=== PATIENT | female | born 1990 | race Asian ===

== ENCOUNTER → 2018-03-10 | Outpatient (CLI) | payer OTHER ==
--- NOTE | 2018-03-10 15:03 | DIAGNOSTIC IMAGING REPORT ---
R ELBOW MIN 3 VIEWS ROUTINE CLINICAL HISTORY: RT ELBOW PAIN/FALL trauma. Pain. COMPARISON: None. DISCUSSION: The bones and joint spaces appear intact. There is no evidence of fracture, dislocation or bony disease. There is no evidence for soft tissue swelling. IMPRESSION: Negative study. The above report was generated using voice recognition software. It may contain grammatical, syntax or spelling errors. Electronically signed by: Geronimo Arias M.D. 03/10/2018 3:01 PM Dictated Date/Time: 03/10/2018 3:00 PM
== END | disposition home or self-care (01) ==
LOC: C.RAD1850 14:53
PROVIDERS: ATTEND Nurse Practitioner
DX: M25.521 Pain in right elbow (principal); W19.XXXA Unspecified fall, initial encounter

== ENCOUNTER 2022-08-27 14:31 | Inpatient (IN) ==
[2022-08-27 15:22] LABS: Basophils # (auto) 0.22 K/uL (0-0.2); Basophils % (auto) 1.4 %; Eosinophils # (auto) 0.06 K/uL (0-0.50); Eosinophils % (auto) 0.4 %; Hematocrit (blood only) 56.7 % (34.1-44.9); Hemoglobin 19.8 g/dl (12.0-16.0); Immature Granulocytes % (auto) 1.3 %; Lymphocytes # (auto) 3.04 K/uL (1.2-3.4); Lymphocytes % (auto) 19.9 %; Mean Corpuscular Hgb Conc 34.9 g/dL (32.0-36.0); Mean Corpuscular Volume 88.7 fL (80.0-100.0); Mean Platelet Volume 11.4 fL (9.4-12.3); Monocytes # (auto) 1.29 K/uL (0.24-0.82); Monocytes % (auto) 8.5 %; Neutrophils # (auto) 10.45 K/uL (1.4-6.5); Neutrophils % (auto) 68.5 %; Platelet Count 393 K/uL (130-400); RDW Coefficient of Variation 13.4 % (11.5-14.5); RDW Standard Deviation 42.8 fL (36.4-46.3); Red Blood Count 6.39 M/uL (3.93-5.22); White Blood Count 15.26 K/ul (4.8-10.8)
[2022-08-27 15:54] LABS: Partial Thromboplastin Ratio 1.2; Partial Thromboplastin Time 32.9 Seconds (21.0-31.0); Prothrombin Time 10.6 Seconds (9.0-12.0)
[2022-08-27 16:15] LABS: Albumin Globulin Ratio 0.9 (0.9-2); Albumin Level 4.6 gm/dl (3.4-5.0); BUN Creatinine Ratio 12.8 (10-20); Bilirubin,Total 0.4 mg/dl (0.2-1.0); Calcium 9.4 mg/dl (8.5-10.1); Globulin 5.1 gm/dl (2.5-4.0); Magnesium 2.2 mg/dl (1.7-2.4); Potassium 4.2 mmol/L (3.5-5.1); Total Protein 9.7 gm/dl (6.0-8.3)
[2022-08-27] MEDS ORDERED: LORazepam 1 MG TAB SL STA (16:37)
[2022-08-27] MEDS ORDERED: SODIUM CHLORIDE 0.9% 1000ML 2,000 ML IV ONE (16:37)
[2022-08-27 17:46] LABS: Appearance Urine Cloudy (Clear); Bacteria Urine Automated Negative (Negative); Bilirubin Urine Negative (Negative); Blood Urine 3+ (Negative); Color Urine Yellow; Epithelial Cell Urine Auto >30 /lpf (0-5); Glucose Urine UA 3+ (Negative); Ketones Urine 4+ (Negative); Leukocyte Esterase Urine Negative (Negative); Nitrite Urine Negative (Negative); Protein Urine 3+ (Negative); Urobilinogen Urine Negative (Negative); WBC Urine Automated >30 /hpf (0-5)
[2022-08-27 17:50] LABS: Base Excess VBG -19.8 mEq/L; HCO3 VBG 10 mmol/L; Oxygen Saturation VBG < 60.0 %; PCO2 VBG 34 mmHg (38-50); PO2 VBG 32 mmHg; pH VBG 7.06 (7.36-7.41)
[2022-08-27] MEDS ORDERED: OPTIRAY 320 500ml IV ONE (17:54)
[2022-08-27 18:11] LABS: Acetaminophen < 3 ug/ml (10-30); Salicylate < 3.0 mg/dl (3.0-30)
--- NOTE | 2022-08-27 18:23 | CT Scan Report ---
CT angio chest PE protocol CT DOSE: 463.38 mGy.cm HISTORY: 31 years-old Female with ro PE. Acute shortness of breath TECHNIQUE: Multiple CTA images of the chest were obtained after the intravenous administration of 122 ml Optiray. Coronal and sagittal MIPS were obtained from the axial data set and were submitted for review. All measurements were obtained according to NASCET criteria. A dose lowering technique was u tilized adhering to the principles of ALARA. COMPARISON: Chest radiograph 09/19/2020 FINDINGS: CTA: There is adequate opacification of the pulmonary arteries to the level of the subsegmental branches w ithout convincing evidence of acute pulmonary embolism. Normal thoracic aorta.Heart size is normal. CT CHEST: No thyroid nodule identified. No lymphadenopathy identified. 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 No pneumothorax, pleural effusion or airspace consolidation. Likely benign 3 mm solid nodul e right lower lobe, image 87. Hepatic steatosis. No acute process of the imaged upper abdomen. 8 mm c ircumscribed soft tissue attenuating mass of the upper inner quadrant left breast. No acute fracture. IMPRESSION: 1. No acute intrathoracic abnormality. No pulmonary emboli. 2. 8 mm mass of the upper inner quadrant left breast, possibly a lymph node. Correlation with a nonem ergent follow-up breast ultrasound recommended. 3. Hepatic steatosis. ACT 112: Negative or not required by law. The above report was generated using voice recognition software. It may contain grammatical, syntax o r spelling errors. Electronically signed by: Armando Ramirez M.D. 08/27/2022 6:21 PM
[2022-08-27 18:37] LABS: Troponin I High Sensitivity 8.9 pg/ml (0-14)
[2022-08-27] MEDS ORDERED: FOMEPIZOLE IV STA (19:00)
[2022-08-27] MEDS ORDERED: FOMEPIZOLE IV ONE (19:30)
[2022-08-27] MEDS ORDERED: DEXTROSE 5% IV ONE (19:30)
--- NOTE | 2022-08-27 19:44 | History & Physical Report ---
Date of Service August 27, 2022 Assessment & Plan (1) Metabolic acidosis: Plan: - VBG with pH of 7.06, CO2 4, O2 32, bicarb 10, base excess -19.8. - ABG: pH 7.1, CO2 17.1, base -24, bicarb 5.4. - Sodium 129, corrects to 132 when accounting for glucose of 299. - Glucose 299, AG 23. - Serum osm 303, serum osmolality 279, osm gap 24.0. - Unknown etiology. Likely mixed--DKA and possible ingestion, adamantly denies ingestion. Taking ibuprofen often, 6-9 in a day when needed but is not every day and takes ~20 200-mg ibuprofen pills/week. - Given fomepizole in ED. - Will cover with IV Protonix given concern for ibuprofen overdose. - Creatinine is up from baseline of .6, is .94 today, GFR 82. - Lactate 1.5. - Salicylate, acetaminophen, ethyl all wnl. - UDS with ethyl glycol, methyl alcohol pending. - Urine osm pending. - For now, will treat as DKA wit insulin gtt, bicarb gtt, admit to ICU. (2) Leukocytosis: Plan: - WBC 15.26, RBS and Hgb also very elevated, suspect a degree of hemoco ncentration/reactive, she also has a history of leukocytosis. - No obvious evidence of infection at present. (3) Depression: Plan: - Hold Zoloft for now. - Increased depression, anxiety due to job on, admits to feeling withdrawn from friends, but adamantly denies any recent suicide attempts, ingestions of any alcohol or chemicals, drug use. - Would benefit from outpatient psych referral for ongoing management. (4) PCOS (polycystic ovarian syndrome): Plan: - On OCP. Plan - Admit to ICU. History of Present Illness Chief Complaint: shortness of breath, chest pain, palpitations x several days Primary Care Provider: JANESSA Loyola Vanda Howard is a 31-year-old female with past medical history significant for chronic back pain, depression, heartburn, obesity, and PCOS who is presenting today due to concerns over chest pain, palpitations, shortness of breath. 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 She has having a very hard time sleeping, noting that for the past 2 weeks she is sleeping for 4-5 hours a night which is mostly interrupted sleep and relying on naps throughout the day, typically gets a 3-hour nap and every day. She is also very short of breath with minor activities such as going up the stairs, down the stairs, or bending over to place her cat's food bowl on the ground, this is what prompted her to present to the ED today. She has bilateral frontal headaches which attributes to lack of sleeping, for which she takes ibuprofen for as needed, estimates she takes 6-9 pills in a day, but not every day, estimates 20 pills of ibuprofen in a week. These are 200 mg pills. She also complains of very dry mouth and has been using lozenges for help with this, and currently this is her biggest complaint as she just cannot get enough water and is peeing more despite still having a dry mouth. other than her Zoloft, vitamin D supplement, the control pill, she is not taking any other prescribed medications and denies any [id number] pills or supplements purchased online other than the ibuprofen and lozenges. Is not taking Tylenol, denies using any alcohol, drugs, or nicotine products. She eats 2 or 3 meals a day consisting of pasta, sticky rice, shrimp, [place]i sauce which she has delivered by her parents. Drinks 1 to 2 L of seltzer a day, as well as water. Has not drastically reduced her food or drink intake. She does not exercise regularly, and this is not new. Her sister, who is older than she is is a prediabetic, she reports she is very thin. Her mother side of the family is fairly healthy and any medical conditions they have, she states are "diet managed ". Father's side has a history of breast cancer, brain cancer, and PCOS. She has been asked about suicidal ideation multiple times by ED provider, major case detective, and myself and adamantly denies any ingestions or feelings of harming her self, however did report to case management she attempted to kill herself by hanging last year. She does note she has been very withdrawn from friends and not going to activities that she previously enjoyed very much. She denies wanting to hurt herself for now, but is just very very frustrated about her job situation and lack of sleep. On presentation to the ED, her heart rate has been elevated to the 120s, and is otherwise within normal limits, stable. Labs notable for pH 7.0 //10. Sodium 129, bicarb 8, anion gap 23, glucose 299, serum osmolality 303. Alk phos, protein, globulin mildly elevated. WBC of 15.26 with left shift, Hgb elevated at 19.8. Urine is concentrated with protein, glucose, ketones, blood, WBCs, RBCs, hyaline casts. Salicylate, serum level negative, ethyl alcohol <10. COVID-negative. PT, INR within normal limits, APTT slightly elevated 32.9. Chest CTA done shows an 8 mm mass of upper inner quadrant of left breast, possibly with. Fatty liver noted. No acute intrathoracic abnormality or pulmonary emboli. Allergies Allergy/AdvReac Type Severity Reaction Status Date / Time silver AdvReac Redness of Verified 08/27/22 18:18 Skin Home Medications Medication Instructions Recorded Confirmed Type sertraline 50 mg tablet 50 mg PO QAM 12/07/19 08/27/22 History drospirenone 3 mg-ethinyl 1 tab PO QAM 08/27/22 08/27/22 History estradiol 0.02 mg tablet (Vestura (28)) Past Med/Surg History Medical History (Updated 08/28/22 @ 17:24 by Almas Chavis MD) Chronic back pain Depression Heartburn History of abnormal cervical Pap smear Obesity PCOS (polycystic ovarian syndrome) Surgical History H/O eye surgery RIGHT > 1997 History of tooth extraction Family History Sister Pre-diabetes Social History Smoking Status: Never smoker Second Hand Exposure: No; Hx Alcohol Use: No Hx Substance Use: No Preferred Language: Swedish Communication Ability: Effective Visual Impairment: No Limitations [employer] Member Required: No Beliefs That Will Affect Care: None Current Living Situation: Alone Current Living Situation Comment: [facility] Other Information That Helps Us Care for You: No Feels Safe at Home: Yes Safety Concerns: Feels Safe At This Time Assistive Devices: None Review of Systems Review of Systems: Constitutional: No fever/chills, weakness, fatigue, myalgias, anorexia, night sweats Eyes: No diplopia, no worsening or blurred vision ENT: very dry mouth x 2 weeks; normal hearing, no trouble swallowing Respiratory: sob with very minor activity; no cough, sputum Cardiovascular: Chest pain and palpitations with minimal activity Abdomen: Nausea, no abdominal pain or vomiting, diarrhea or constipation : Increased urination; Denies dysuria, hematuria, urinary retention Musculoskeletal: No joint pain, calf pain, swelling Neurologic: No weakness, numbness/tingling, or balance problems Psychiatric: No anxiety or depression Skin: No rash or itch Physical Exam Physical Exam: General: awake, alert, no apparent distress Head: Normocephalic, atraumatic ENT: PERRL, EOMI, no pharyngeal exudate, mucous membranes moist Chest: Clear to auscultation, on room air, no adventitious breath sounds Cardiac: Tachycardic rate and rhythm, no murmur, no JVD, normal peripheral pulses, good capillary refill Abdominal: NABS x 4 quadrants, soft, nontender to palpation, no rebound, guarding or tenderness Extremities: Normal inspection, no peripheral edema or erythema, calfs nontender to palpation Psych: Normal mood and affect Neuro: AAO x 3, strength intact bilaterally and rated 5/5, no motor deficits, speech is clear, no peripheral sensory deficits Skin: no rash or erythema Results & Data Results & Data ([facility]) Vital Signs (Past 12 Hours) Vital Signs Temp Pulse Pulse Resp BP BP Pulse Ox 08/27/22 17:13 119 H 20 136/93 97 08/27/22 15:02 105 H 20 97 08/27/22 15:01 97 08/27/22 15:01 120 H 20 136/91 98 08/27/22 14:58 36.4 C L 130 H 18 144/98 H 95 O2 Del Method 08/27/22 17:13 Room Air 08/27/22 15:02 Room Air 08/27/22 15:01 Room Air 08/27/22 15:01 Room Air 08/27/22 14:58 Room Air Laboratory Results Abnormal lab results 08/27/22 08/27/22 08/27/22 Range/Units 15:10 15:10 15:10 WBC 15.26 H (4.8-10.8) K/ul RBC 6.39 H (3.93-5.22) M/uL Hgb 19.8 H (12.0-16.0) g/dl Hct 56.7 H (34.1-44.9) % Neut # (Auto) 10.45 H (1.4-6.5) K/uL [place] # (Auto) 1.29 H (0.24-0.82) K/uL Baso # (Auto) 0.22 H (0-0.2) K/uL Immature Gran # (Auto) 0.20 H (0.00-0.02) K/uL APTT 32.9 H (21.0-31.0) Seconds VBG pH (7.36-7.41) VBG pCO2 (38-50) mmHg Sodium 129 L (136-145) mmol/L Carbon Dioxide 8 L* (21-32) mmol/L Anion Gap 23 H (3-11) Glucose 299 H (70-99(Fasting)) mg/dl Osmolality (280-300) mOsm/kg Alkaline Phosphatase 115 H (34-104) U/L Total Protein 9.7 H (6.0-8.3) gm/dl Globulin 5.1 H (2.5-4.0) gm/dl Urine Appearance (Clear) Ur Specific [place] (1.000-1.030) Urine Protein (Negative) Urine Glucose (UA) (Negative) Urine Ketones (Negative) Urine Blood (Negative) Urine WBC (Auto) (0-5) /hpf Urine RBC (Auto) (0-4) /hpf U Hyaline Cast (Auto) (0-5) /lpf U Epithel Cells (Auto) (0-5) /lpf Salicylates (3.0-30) mg/dl Acetaminophen (10-30) ug/ml 08/27/22 08/27/22 08/27/22 Range/Units 17:08 17:08 17:08 WBC (4.8-10.8) K/ul RBC (3.93-5.22) M/uL Hgb (12.0-16.0) g/dl Hct (34.1-44.9) % Neut # (Auto) (1.4-6.5) K/uL [place] # (Auto) (0.24-0.82) K/uL Baso # (Auto) (0-0.2) K/uL Immature Gran # (Auto) (0.00-0.02) K/uL APTT (21.0-31.0) Seconds VBG pH 7.06 L (7.36-7.41) VBG pCO2 34 L (38-50) mmHg Sodium (136-145) mmol/L Carbon Dioxide (21-32) mmol/L Anion Gap (3-11) Glucose (70-99(Fasting)) mg/dl Osmolality 303 H (280-300) mOsm/kg Alkaline Phosphatase (34-104) U/L Total Protein (6.0-8.3) gm/dl Globulin (2.5-4.0) gm/dl Urine Appearance (Clear) Ur Specific [place] (1.000-1.030) Urine Protein (Negative) Urine Glucose (UA) (Negative) Urine Ketones (Negative) Urine Blood (Negative) Urine WBC (Auto) (0-5) /hpf Urine RBC (Auto) (0-4) /hpf U Hyaline Cast (Auto) (0-5) /lpf U Epithel Cells (Auto) (0-5) /lpf Salicylates < 3.0 L (3.0-30) mg/dl Acetaminophen < 3 L (10-30) ug/ml 08/27/22 Range/Units 17:24 WBC (4.8-10.8) K/ul RBC (3.93-5.22) M/uL Hgb (12.0-16.0) g/dl Hct (34.1-44.9) % Neut # (Auto) (1.4-6.5) K/uL [place] # (Auto) (0.24-0.82) K/uL Baso # (Auto) (0-0.2) K/uL Immature Gran # (Auto) (0.00-0.02) K/uL APTT (21.0-31.0) Seconds VBG pH (7.36-7.41) VBG pCO2 (38-50) mmHg Sodium (136-145) mmol/L Carbon Dioxide (21-32) mmol/L Anion Gap (3-11) Glucose (70-99(Fasting)) mg/dl Osmolality (280-300) mOsm/kg Alkaline Phosphatase (34-104) U/L Total Protein (6.0-8.3) gm/dl Globulin (2.5-4.0) gm/dl Urine Appearance Cloudy A (Clear) Ur Specific [place] 1.040 H (1.000-1.030) Urine Protein 3+ H (Negative) Urine Glucose (UA) 3+ H (Negative) Urine Ketones 4+ H (Negative) Urine Blood 3+ H (Negative) Urine WBC (Auto) >30 H (0-5) /hpf Urine RBC (Auto) 5-10 H (0-4) /hpf U Hyaline Cast (Auto) 10-30 H (0-5) /lpf U Epithel Cells (Auto) >30 H (0-5) /lpf Salicylates (3.0-30) mg/dl Acetaminophen (10-30) ug/ml Diagnostic Findings Chest CTA 08/27/22 16:38 CT angio chest PE protocol CT DOSE: 463.38 mGy.cm HISTORY: 31 years-old Female with ro PE. Acute shortness of breath TECHNIQUE: Multiple CTA images of the chest were obtained after the intravenous administration of 122 ml Optiray. Coronal and sagittal MIPS were obtained from the axial data set and were submitted for review. All measurements were obtained according to NASCET criteria. A dose lowering technique was utilized adhering to the principles of ALARA. COMPARISON: Chest radiograph 09/19/2020 FINDINGS: CTA: There is adequate opacification of the pulmonary arteries to the level of the subsegmental branches without convincing evidence of acute pulmonary embolism. Normal thoracic aorta.Heart size is normal. CT CHEST: No thyroid nodule identified. No lymphadenopathy identified. 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 No pneumothorax, pleural effusion or airspace consolidation. Likely benign 3 mm solid nodule right lower lobe, image 87. Hepatic steatosis. No acute process of the imaged upper abdomen. 8 mm circumscribed soft tissue attenuating mass of the upper inner quadrant left breast. No acute fracture. IMPRESSION: 1. No acute intrathoracic abnormality. No pulmonary emboli. 2. 8 mm mass of the upper inner quadrant left breast, possibly a lymph node. Correlation with a nonemergent follow-up breast ultrasound recommended. 3. Hepatic steatosis. ACT 112: Negative or not required by law. The above report was generated using voice recognition software. It may contain grammatical, syntax or spelling errors. Electronically signed by: Armando Ramirez M.D. 08/27/2022 6:21 PM ECG Additional Comments: Sinus tachycardia Possible Left atrial enlargement Right axis deviation Pulmonary disease pattern Abnormal ECG When compared with ECG of 19-DEC-2019 14:31, Vent. rate has increased BY 46 BPM QRS axis Shifted right. Code Status & VTE Plan Code Status Full Code. Supervising Physician Co-Signing Physician Notes Attending addendum: I have physically seen this patient, have supervised the medical residents activities, and agree with the H&P unless as otherwise noted. Assessment and Plan: Severe metabolic acidosis- ABG: pH 7.1, CO2 17.1, base -24, bicarb 5.4 Glucose 299 Anion gap 23 Serum osmolality 303 Urine osmolality 833 Osmolality 24.0 Treated for DKA with insulin drip and adjusted IV fluids as noted Fomepizole given in ED Salicylate, acetaminophen and ethyl alcohol all normal UDS with ethylene glycol and methyl alcohol pending Placed on bicarb drip Follow BMP and magnesium levels every 4 hours Admit to ICU Further orders and notations as noted PG Care Time/CCT Total # of Minutes Spent Total Time Spent with Patient: Total time spent is greater than 50% in coordination of care (as documented) at patient's floor/unit and/or counseling patient: Critical Care Time 45 minutes Coding Level of Care Code 54081 Initial Inpt Care Lvl 3 Diagnoses Metabolic acidosis E87.20 Leukocytosis D72.829 Depression F32.9 PCOS (polycystic ovarian syndrome) E28.2
[2022-08-27] MEDS ORDERED: LACTATED RINGER'S 1,000 ML IV SCH (20:30)
[2022-08-27] MEDS ORDERED: PANTOprazole 40 MG in SYRINGE 0 ML IV ONE (21:15)
[2022-08-27] MEDS ORDERED: LACTATED RINGER'S 1,000 ML IV ONE (21:27)
[2022-08-27] MEDS: SODIUM BICARBONATE 8.4% 150 MEQ in WATER, STERILE 1,000 ML IV SCH (22:18)
[2022-08-27 22:19] LABS: Amphetamines+Metham, Urine Neg (Neg); Barbiturates, Urine Neg (Neg); Benzodiazepine, Urine Neg (Neg); Cocaine, Urine Neg (Neg); MDMA (Ecstacy), Urine Neg (Neg); Methadone, Urine Neg (Neg); Opiate, Urine Neg (Neg); Phencyclidine, Urine Neg (Neg)
--- NOTE | 2022-08-27 23:05 | Emergency Department Note ---
History of Present Illness General Chief complaint: Shortness of Breath/Dyspnea Stated complaint: INSOMIA, HEART RACING, SOB, DRY MOUTH Time Seen by Provider: 08/27/22 16:04 History of Present Illness Provider complaint: Palpitations and shortness of breath Onset (ago): day(s) 1 Associated symptoms: + shortness of breath; no chest pain, no cough, no h eadaches or no nausea/vomiting 31-year-old female presents emergency department for palpitations and shortness of breath. Patient reports her symptoms began yesterday. She also [place]. Patient denies any current chest pain. Patient states she has been under a great amount of stress about her finances that she recently quit her job has not been able to find a new job yet. Patient reports no depression or suicidal ideation. Patient does report she is on oral contraceptives. She denies any abdominal pain. She denies any fevers. No melena hematochezia hematuria dysuria or vaginal bleeding. No chance of . Home Medications Medication Instructions Recorded Confirmed Type sertraline 50 mg tablet 50 mg PO QAM 12/07/19 08/27/22 History drospirenone 3 mg-ethinyl 1 tab PO QAM 08/27/22 08/27/22 History estradiol 0.02 mg tablet (Vestura (28)) Allergies Allergy/AdvReac Type Severity Reaction Status Date / Time silver AdvReac Redness of Verified 08/27/22 18:18 Skin Past Med/Surg History Medical History (Updated 08/27/22 @ 23:17 by Rowdy Rogers) Chronic back pain Depression Heartburn History of abnormal cervical Pap smear Obesity PCOS (polycystic ovarian syndrome) Surgical History H/O eye surgery RIGHT > 1997 History of tooth extraction Family History Sister Pre-diabetes Social History Smoking Status: Never smoker Second Hand Exposure: No; Hx Alcohol Use: No Hx Substance Use: No Preferred Language: [place] Communication Ability: Effective Visual Impairment: No Limitations Broadcasting Equipment Mechanic Required: No Beliefs That Will Affect Care: None Current Living Situation Comment: [facility] Feels Safe at Home: Yes Assistive Devices: Glasses Review of Systems A total of 10 systems reviewed and were otherwise negative Physical Exam Vital Signs Vital Signs - 24 hr 08/27/22 14:58 08/27/22 15:02 08/27/22 15:01 Temperature 36.4 C L Temperature Source Temporal Artery Scan Pulse Rate 130 H Pulse Rate [Apical] 120 H Pulse Rate from SpO2 Sensor Pulse Rhythm Pulse Rhythm [Apical] Regular Pulse Strength [Apical] Normal Respiratory Rate 18 20 Respiratory Effort / Characteristics Non-Labored Spontaneous Non-Labored Respiratory Depth Normal Respiratory Pattern Regular Regular Blood Pressure 144/98 H Blood Pressure [Right Arm] 136/91 Blood Pressure Mean 113 Blood Pressure Mean [Right Arm] 106 Blood Pressure Position Sitting Blood Pressure Position [Right Arm] Pulse Oximetry 95 98 Oxygen Delivery Method Room Air Room Air Sepsis Recent Fever Within 48 Hours No Sepsis New/Unexplained Change in Mental Status No Sepsis Action Taken by Nursing No Action Required 08/27/22 15:01 08/27/22 15:02 08/27/22 17:13 Temperature Temperature Source Pulse Rate 105 H Pulse Rate [Apical] 119 H Pulse Rate from SpO2 Sensor Pulse Rhythm Regular Pulse Rhythm [Apical] Regular Pulse Strength [Apical] Normal Respiratory Rate 20 20 Respiratory Effort / Characteristics Respiratory Depth Normal Respiratory Pattern Blood Pressure Blood Pressure [Right Arm] 136/93 Blood Pressure Mean Blood Pressure Mean [Right Arm] 107 Blood Pressure Position Blood Pressure Position [Right Arm] Lying Pulse Oximetry 97 97 97 Oxygen Delivery Method Room Air Room Air Room Air Sepsis Recent Fever Within 48 Hours Sepsis New/Unexplained Change in Mental Status Sepsis Action Taken by Nursing 08/27/22 17:17 08/27/22 17:30 08/27/22 17:30 Temperature Temperature Source Pulse Rate 118 H 113 H Pulse Rate [Apical] Pulse Rate from SpO2 Sensor 118 H 115 H Pulse Rhythm Pulse Rhythm [Apical] Pulse Strength [Apical] Respiratory Rate 15 19 Respiratory Effort / Characteristics Respiratory Depth Respiratory Pattern Blood Pressure 131/97 Blood Pressure [Right Arm] Blood Pressure Mean 108 Blood Pressure Mean [Right Arm] Blood Pressure Position Blood Pressure Position [Right Arm] Pulse Oximetry 97 98 Oxygen Delivery Method Sepsis Recent Fever Within 48 Hours Sepsis New/Unexplained Change in Mental Status Sepsis Action Taken by Nursing 08/27/22 18:04 08/27/22 18:04 08/27/22 18:30 Temperature Temperature Source Pulse Rate Pulse Rate [Apical] Pulse Rate from SpO2 Sensor 120 H Pulse Rhythm Pulse Rhythm [Apical] Pulse Strength [Apical] Respiratory Rate Respiratory Effort / Characteristics Respiratory Depth Respiratory Pattern Blood Pressure 144/87 H 132/92 Blood Pressure [Right Arm] Blood Pressure Mean 106 105 Blood Pressure Mean [Right Arm] Blood Pressure Position Blood Pressure Position [Right Arm] Pulse Oximetry 98 Oxygen Delivery Method Sepsis Recent Fever Within 48 Hours Sepsis New/Unexplained Change in Mental Status Sepsis Action Taken by Nursing 08/27/22 18:30 08/27/22 19:00 08/27/22 19:00 Temperature Temperature Source Pulse Rate Pulse Rate [Apical] Pulse Rate from SpO2 Sensor 121 H 119 H Pulse Rhythm Pulse Rhythm [Apical] Pulse Strength [Apical] Respiratory Rate Respiratory Effort / Characteristics Respiratory Depth Respiratory Pattern Blood Pressure 132/97 Blood Pressure [Right Arm] Blood Pressure Mean 108 Blood Pressure Mean [Right Arm] Blood Pressure Position Blood Pressure Position [Right Arm] Pulse Oximetry 96 97 Oxygen Delivery Method Sepsis Recent Fever Within 48 Hours Sepsis New/Unexplained Change in Mental Status Sepsis Action Taken by Nursing 08/27/22 19:30 08/27/22 19:30 08/27/22 20:00 Temperature Temperature Source Pulse Rate Pulse Rate [Apical] Pulse Rate from SpO2 Sensor 115 H 122 H Pulse Rhythm Pulse Rhythm [Apical] Pulse Strength [Apical] Respiratory Rate Respiratory Effort / Characteristics Respiratory Depth Respiratory Pattern Blood Pressure 150/90 H Blood Pressure [Right Arm] Blood Pressure Mean 110 Blood Pressure Mean [Right Arm] Blood Pressure Position Blood Pressure Position [Right Arm] Pulse Oximetry 98 97 Oxygen Delivery Method Sepsis Recent Fever Within 48 Hours Sepsis New/Unexplained Change in Mental Status Sepsis Action Taken by Nursing 08/27/22 20:01 08/27/22 20:01 08/27/22 20:30 Temperature Temperature Source Pulse Rate Pulse Rate [Apical] Pulse Rate from SpO2 Sensor 123 H 127 H Pulse Rhythm Pulse Rhythm [Apical] Pulse Strength [Apical] Respiratory Rate Respiratory Effort / Characteristics Respiratory Depth Respiratory Pattern Blood Pressure 115/84 Blood Pressure [Right Arm] Blood Pressure Mean 94 Blood Pressure Mean [Right Arm] Blood Pressure Position Blood Pressure Position [Right Arm] Pulse Oximetry 98 100 Oxygen Delivery Method Sepsis Recent Fever Within 48 Hours Sepsis New/Unexplained Change in Mental Status Sepsis Action Taken by Nursing 08/27/22 20:33 08/27/22 20:33 08/27/22 21:00 Temperature Temperature Source Pulse Rate Pulse Rate [Apical] Pulse Rate from SpO2 Sensor 123 H Pulse Rhythm Pulse Rhythm [Apical] Pulse Strength [Apical] Respiratory Rate Respiratory Effort / Characteristics Respiratory Depth Respiratory Pattern Blood Pressure 141/93 H 155/93 H Blood Pressure [Right Arm] Blood Pressure Mean 109 113 Blood Pressure Mean [Right Arm] Blood Pressure Position Blood Pressure Position [Right Arm] Pulse Oximetry 99 Oxygen Delivery Method Sepsis Recent Fever Within 48 Hours Sepsis New/Unexplained Change in Mental Status Sepsis Action Taken by Nursing 08/27/22 21:00 08/27/22 21:30 08/27/22 21:30 Temperature Temperature Source Pulse Rate 105 H Pulse Rate [Apical] Pulse Rate from SpO2 Sensor 106 H Pulse Rhythm Pulse Rhythm [Apical] Pulse Strength [Apical] Respiratory Rate Respiratory Effort / Characteristics Respiratory Depth Respiratory Pattern Blood Pressure 134/86 Blood Pressure [Right Arm] Blood Pressure Mean 102 Blood Pressure Mean [Right Arm] Blood Pressure Position Blood Pressure Position [Right Arm] Pulse Oximetry 93 97 Oxygen Delivery Method Sepsis Recent Fever Within 48 Hours Sepsis New/Unexplained Change in Mental Status Sepsis Action Taken by Nursing 08/27/22 22:00 08/27/22 22:30 08/27/22 22:30 Temperature Temperature Source Pulse Rate Pulse Rate [Apical] Pulse Rate from SpO2 Sensor 120 H 121 H Pulse Rhythm Pulse Rhythm [Apical] Pulse Strength [Apical] Respiratory Rate Respiratory Effort / Characteristics Respiratory Depth Respiratory Pattern Blood Pressure 142/95 H Blood Pressure [Right Arm] Blood Pressure Mean 110 Blood Pressure Mean [Right Arm] Blood Pressure Position Blood Pressure Position [Right Arm] Pulse Oximetry 97 95 Oxygen Delivery Method Sepsis Recent Fever Within 48 Hours Sepsis New/Unexplained Change in Mental Status Sepsis Action Taken by Nursing 08/27/22 22:59 Temperature Temperature Source Pulse Rate Pulse Rate [Apical] Pulse Rate from SpO2 Sensor Pulse Rhythm Pulse Rhythm [Apical] Pulse Strength [Apical] Respiratory Rate Respiratory Effort / Characteristics Respiratory Depth Respiratory Pattern Blood Pressure Blood Pressure [Right Arm] Blood Pressure Mean Blood Pressure Mean [Right Arm] Blood Pressure Position Blood Pressure Position [Right Arm] Pulse Oximetry Oxygen Delivery Method Room Air Sepsis Recent Fever Within 48 Hours Sepsis New/Unexplained Change in Mental Status Sepsis Action Taken by Nursing Physical Exam GENERAL: She is oriented to person, place, and time. She appears well-developed and well-nourished. She does not appear distressed. HENT: Exam performed. -Head: Normocephalic and atraumatic. -Right Ear: External ear normal. No mastoid tenderness. -Left Ear: External ear normal. No mastoid tenderness. -Mouth/Throat: The oropharynx is clear and moist. No trismus in the jaw. No dental abscesses or uvula swelling. No oropharyngeal exudate or tonsillar abs cesses. EYES: Conjunctivae and EOM are normal. Pupils are equal, round, and reactive to light. Right eye exhibits no discharge. Left eye exhibits no discharge. No scleral icterus. NECK: Normal range of motion. Neck supple. No JVD present. No spinous process tenderness present. No carotid bruit present. No rigidity. No tracheal deviation and normal range of motion present. No Brudzinski's sign and no Kernig's sign noted. CV: Tachycardic rate, regular rhythm, normal heart sounds and intact distal pulses. There is no peripheral edema. Palpable radial pulses bue. PULM/CHEST: Effort normal and breath sounds normal. No respiratory distress. No stridor. She has no wheezes. She has no rales. -Chest Wall: She exhibits no tenderness. ABD: The abdomen is soft. Bowel sounds are normal. She has no distension. No mass is present. There is no tenderness. There is no rebound, no guarding, no Oates's sign and no tenderness at McBurney's point. Rovsig negative MUSC/SKEL: Normal range of motion. There is no peripheral edema, tenderness or deformity. LYMPH: No cervical adenopathy. NEURO: She is alert and oriented to person, place, and time. She has normal strength. No cranial nerve deficit or sensory deficit. Coordination and gait normal. GCS eye subscore is 4. GCS verbal subscore is 5. GCS motor subscore is 6. Cerebellar tests wnl. SKIN: Skin is warm and dry. She is not diaphoretic. PSYCH: She has a normal mood and affect. Behavior is normal. Judgment and thought content normal. Course Course 1604: The patient was evaluated in room C5. A complete history and physical exam was performed Administered Medications Sodium Bicarbonate 150 meq/ (Sterile Water) 1,150 mls @ 150 mls/hr IV .[id number] [facility], [facility]–1983 Stop: 09/26/22 21:44 Last Admin: 08/27/22 22:18 Dose: 150 mls/hr Documented By: LRS Discontinued Medications Sodium Chloride (Nss 1000ml) 2,000 mls @ 999 mls/hr IV .Q2H1M ONE Stop: 08/27/22 18:37 Last Infusion: 08/27/22 20:47 Dose: 0 mls/hr Documented By: Admin: 08/27/22 17:04 Dose: 999 mls/hr Documented By: RICHY Fomepizole 1.26 gm/ Dextrose 101.26 mls @ 200 mls/hr IV ONE ONE Stop: 08/27/22 20:00 Last Admin: 08/27/22 20:57 Dose: 200 mls/hr Documented By: RICHY Pantoprazole Sodium 40 mg/ (Syringe) 10 mls @ 5 mls/min IV NOW ONE Stop: 08/27/22 21:16 Last Admin: 08/27/22 22:10 Dose: 5 mls/min Documented By: RICHY Ioversol (Optiray 320 500ml) 122 ml IV ONCE ONE Stop: 08/27/22 17:55 Last Admin: 08/27/22 17:58 Dose: 122 ml Documented By: AUSTIN Lorazepam (Lorazepam 1 Mg Tab) 1 mg SL NOW STA Stop: 08/27/22 16:38 Last Admin: 08/27/22 17:04 Dose: 1 mg Documented By: RICHY Critical Care Time Critical Care Time: Yes Total Critical Care Time: 51 I have personally spent greater than 51 minutes of critical care time in the direct management of this patient. This includes bedside care, interpretation of diagnostic studies, and testing, discussion with consultants, patient, and family members, and other required patient management activities. This 51 minutes is in excess of all separately billable procedures. Medical Decision Making Laboratory Data Result diagrams: 08/27/22 15:10 08/27/22 15:10 Lab Results 08/27/22 08/27/22 08/27/22 Range/Units 15:10 15:10 15:10 WBC 15.26 H (4.8-10.8) K/ul RBC 6.39 H (3.93-5.22) M/uL Hgb 19.8 H (12.0-16.0) g/dl Hct 56.7 H (34.1-44.9) % MCV 88.7 (80.0-100.0) fL MCH 31.0 (25.0-34.0) pg MCHC 34.9 (32.0-36.0) g/dL RDW Std Deviation 42.8 (36.4-46.3) fL RDW Coeff of Abhi 13.4 (11.5-14.5) % Plt Count 393 (130-400) K/uL MPV 11.4 (9.4-12.3) fL Immature Gran % (Auto) 1.3 % Neut % (Auto) 68.5 % Lymph % (Auto) 19.9 % [place] % (Auto) 8.5 % Eos % (Auto) 0.4 % Baso % (Auto) 1.4 % Neut # (Auto) 10.45 H (1.4-6.5) K/uL Lymph # (Auto) 3.04 (1.2-3.4) K/uL [place] # (Auto) 1.29 H (0.24-0.82) K/uL Eos # (Auto) 0.06 (0-0.50) K/uL Baso # (Auto) 0.22 H (0-0.2) K/uL Immature Gran # (Auto) 0.20 H (0.00-0.02) K/uL PT 10.6 (9.0-12.0) Seconds INR 1.0 (0.9-1.1) APTT 32.9 H (21.0-31.0) Seconds PTT Ratio 1.2 VBG pH (7.36-7.41) VBG pCO2 (38-50) mmHg VBG pO2 mmHg VBG HCO3 mmol/L VBG O2 Saturation % VBG Base Excess mEq/L Sodium 129 L (136-145) mmol/L Potassium 4.2 (3.5-5.1) mmol/L Chloride 98 (98-107) mmol/L Carbon Dioxide 8 L* (21-32) mmol/L Anion Gap 23 H (3-11) BUN 12 (6-23) mg/dl Creatinine 0.94 (0.6-1.2) mg/dl Est Cr Clr Drug Dosing 87.0 ml/min Est GFR ( Amer) 95.0 ml/min Est GFR (Non-Af Amer) 82.0 ml/min BUN/Creatinine Ratio 12.8 (10-20) Glucose 299 H (70-99(Fasting)) mg/dl Osmolality (280-300) mOsm/kg Lactate (0.4-2.0) mmol/L Calcium 9.4 (8.5-10.1) mg/dl Magnesium 2.2 (1.7-2.4) mg/dl Total Bilirubin 0.4 (0.2-1.0) mg/dl AST 26 (13-39) U/L ALT 25 (7-52) U/L Alkaline Phosphatase 115 H (34-104) U/L Troponin I High Sens (0-14) pg/ml Total Protein 9.7 H (6.0-8.3) gm/dl Albumin 4.6 (3.4-5.0) gm/dl Globulin 5.1 H (2.5-4.0) gm/dl Albumin/Globulin Ratio 0.9 (0.9-2) Lipase (11-82) U/L Urine Color Urine Appearance (Clear) Urine pH (4.5-7.5) Ur Specific [place] (1.000-1.030) Urine Protein (Negative) Urine Glucose (UA) (Negative) Urine Ketones (Negative) Urine Blood (Negative) Urine Nitrite (Negative) Urine Bilirubin (Negative) Urine Urobilinogen (Negative) Ur Leukocyte Esterase (Negative) Urine WBC (Auto) (0-5) /hpf Urine RBC (Auto) (0-4) /hpf U Hyaline Cast (Auto) (0-5) /lpf U Epithel Cells (Auto) (0-5) /lpf Urine Bacteria (Auto) (Negative) Urine Osmolality (500-800) mOsm/kg Salicylates (3.0-30) mg/dl Urine Opiates Screen (Neg) Ur Methadone, Qual (Neg) Acetaminophen (10-30) ug/ml Urine Barbiturates (Neg) Ur Phencyclidine (PCP) (Neg) U Amphetamin/Meth Scrn (Neg) MDMA (Ecstasy) Screen (Neg) U Benzodiazepines Scrn (Neg) Ur Cocaine Metabolite (Neg) U Marijuana (THC) Screen (Neg) Ethyl Alcohol mg/dL (<10.0) mg/dl SARS-CoV-2, RNA, NAAT (NEGATIVE) 08/27/22 08/27/22 08/27/22 Range/Units 17:08 17:08 17:08 WBC (4.8-10.8) K/ul RBC (3.93-5.22) M/uL Hgb (12.0-16.0) g/dl Hct (34.1-44.9) % MCV (80.0-100.0) fL MCH (25.0-34.0) pg MCHC (32.0-36.0) g/dL RDW Std Deviation (36.4-46.3) fL RDW Coeff of Abhi (11.5-14.5) % Plt Count (130-400) K/uL MPV (9.4-12.3) fL Immature Gran % (Auto) % Neut % (Auto) % Lymph % (Auto) % [place] % (Auto) % Eos % (Auto) % Baso % (Auto) % Neut # (Auto) (1.4-6.5) K/uL Lymph # (Auto) (1.2-3.4) K/uL [place] # (Auto) (0.24-0.82) K/uL Eos # (Auto) (0-0.50) K/uL Baso # (Auto) (0-0.2) K/uL Immature Gran # (Auto) (0.00-0.02) K/uL PT (9.0-12.0) Seconds INR (0.9-1.1) APTT (21.0-31.0) Seconds PTT Ratio VBG pH (7.36-7.41) VBG pCO2 (38-50) mmHg VBG pO2 mmHg VBG HCO3 mmol/L VBG O2 Saturation % VBG Base Excess mEq/L Sodium (136-145) mmol/L Potassium (3.5-5.1) mmol/L Chloride (98-107) mmol/L Carbon Dioxide (21-32) mmol/L Anion Gap (3-11) BUN (6-23) mg/dl Creatinine (0.6-1.2) mg/dl Est Cr Clr Drug Dosing ml/min Est GFR ( Amer) ml/min Est GFR (Non-Af Amer) ml/min BUN/Creatinine Ratio (10-20) Glucose (70-99(Fasting)) mg/dl Osmolality 303 H (280-300) mOsm/kg Lactate (0.4-2.0) mmol/L Calcium (8.5-10.1) mg/dl Magnesium (1.7-2.4) mg/dl Total Bilirubin (0.2-1.0) mg/dl AST (13-39) U/L ALT (7-52) U/L Alkaline Phosphatase (34-104) U/L Troponin I High Sens (0-14) pg/ml Total Protein (6.0-8.3) gm/dl Albumin (3.4-5.0) gm/dl Globulin (2.5-4.0) gm/dl Albumin/Globulin Ratio (0.9-2) Lipase (11-82) U/L Urine Color Urine Appearance (Clear) Urine pH (4.5-7.5) Ur Specific [place] (1.000-1.030) Urine Protein (Negative) Urine Glucose (UA) (Negative) Urine Ketones (Negative) Urine Blood (Negative) Urine Nitrite (Negative) Urine Bilirubin (Negative) Urine Urobilinogen (Negative) Ur Leukocyte Esterase (Negative) Urine WBC (Auto) (0-5) /hpf Urine RBC (Auto) (0-4) /hpf U Hyaline Cast (Auto) (0-5) /lpf U Epithel Cells (Auto) (0-5) /lpf Urine Bacteria (Auto) (Negative) Urine Osmolality (500-800) mOsm/kg Salicylates < 3.0 L (3.0-30) mg/dl Urine Opiates Screen (Neg) Ur Methadone, Qual (Neg) Acetaminophen < 3 L (10-30) ug/ml Urine Barbiturates (Neg) Ur Phencyclidine (PCP) (Neg) U Amphetamin/Meth Scrn (Neg) MDMA (Ecstasy) Screen (Neg) U Benzodiazepines Scrn (Neg) Ur Cocaine Metabolite (Neg) U Marijuana (THC) Screen (Neg) Ethyl Alcohol mg/dL < 10.0 (<10.0) mg/dl SARS-CoV-2, RNA, NAAT (NEGATIVE) 08/27/22 08/27/22 08/27/22 Range/Units 17:08 17:08 17:08 WBC (4.8-10.8) K/ul RBC (3.93-5.22) M/uL Hgb (12.0-16.0) g/dl Hct (34.1-44.9) % MCV (80.0-100.0) fL MCH (25.0-34.0) pg MCHC (32.0-36.0) g/dL RDW Std Deviation (36.4-46.3) fL RDW Coeff of Abhi (11.5-14.5) % Plt Count (130-400) K/uL MPV (9.4-12.3) fL Immature Gran % (Auto) % Neut % (Auto) % Lymph % (Auto) % [place] % (Auto) % Eos % (Auto) % Baso % (Auto) % Neut # (Auto) (1.4-6.5) K/uL Lymph # (Auto) (1.2-3.4) K/uL [place] # (Auto) (0.24-0.82) K/uL Eos # (Auto) (0-0.50) K/uL Baso # (Auto) (0-0.2) K/uL Immature Gran # (Auto) (0.00-0.02) K/uL PT (9.0-12.0) Seconds INR (0.9-1.1) APTT (21.0-31.0) Seconds PTT Ratio VBG pH 7.06 L (7.36-7.41) VBG pCO2 34 L (38-50) mmHg VBG pO2 32 mmHg VBG HCO3 10 mmol/L VBG O2 Saturation < 60.0 % VBG Base Excess -19.8 mEq/L Sodium (136-145) mmol/L Potassium (3.5-5.1) mmol/L Chloride (98-107) mmol/L Carbon Dioxide (21-32) mmol/L Anion Gap (3-11) BUN (6-23) mg/dl Creatinine (0.6-1.2) mg/dl Est Cr Clr Drug Dosing ml/min Est GFR ( Amer) ml/min Est GFR (Non-Af Amer) ml/min BUN/Creatinine Ratio (10-20) Glucose (70-99(Fasting)) mg/dl Osmolality (280-300) mOsm/kg Lactate 1.5 (0.4-2.0) mmol/L Calcium (8.5-10.1) mg/dl Magnesium (1.7-2.4) mg/dl Total Bilirubin (0.2-1.0) mg/dl AST (13-39) U/L ALT (7-52) U/L Alkaline Phosphatase (34-104) U/L Troponin I High Sens 8.9 (0-14) pg/ml Total Protein (6.0-8.3) gm/dl Albumin (3.4-5.0) gm/dl Globulin (2.5-4.0) gm/dl Albumin/Globulin Ratio (0.9-2) Lipase 36 (11-82) U/L Urine Color Urine Appearance (Clear) Urine pH (4.5-7.5) Ur Specific Donnelly (1.000-1.030) Urine Protein (Negative) Urine Glucose (UA) (Negative) Urine Ketones (Negative) Urine Blood (Negative) Urine Nitrite (Negative) Urine Bilirubin (Negative) Urine Urobilinogen (Negative) Ur Leukocyte Esterase (Negative) Urine WBC (Auto) (0-5) /hpf Urine RBC (Auto) (0-4) /hpf U Hyaline Cast (Auto) (0-5) /lpf U Epithel Cells (Auto) (0-5) /lpf Urine Bacteria (Auto) (Negative) Urine Osmolality (500-800) mOsm/kg Salicylates (3.0-30) mg/dl Urine Opiates Screen (Neg) Ur Methadone, Qual (Neg) Acetaminophen (10-30) ug/ml Urine Barbiturates (Neg) Ur Phencyclidine (PCP) (Neg) U Amphetamin/Meth Scrn (Neg) MDMA (Ecstasy) Screen (Neg) U Benzodiazepines Scrn (Neg) Ur Cocaine Metabolite (Neg) U Marijuana (THC) Screen (Neg) Ethyl Alcohol mg/dL (<10.0) mg/dl SARS-CoV-2, RNA, NAAT (NEGATIVE) 08/27/22 08/27/22 08/27/22 Range/Units 17:10 17:24 17:42 WBC (4.8-10.8) K/ul RBC (3.93-5.22) M/uL Hgb (12.0-16.0) g/dl Hct (34.1-44.9) % MCV (80.0-100.0) fL MCH (25.0-34.0) pg MCHC (32.0-36.0) g/dL RDW Std Deviation (36.4-46.3) fL RDW Coeff of Abhi (11.5-14.5) % Plt Count (130-400) K/uL MPV (9.4-12.3) fL Immature Gran % (Auto) % Neut % (Auto) % Lymph % (Auto) % [place] % (Auto) % Eos % (Auto) % Baso % (Auto) % Neut # (Auto) (1.4-6.5) K/uL Lymph # (Auto) (1.2-3.4) K/uL [place] # (Auto) (0.24-0.82) K/uL Eos # (Auto) (0-0.50) K/uL Baso # (Auto) (0-0.2) K/uL Immature Gran # (Auto) (0.00-0.02) K/uL PT (9.0-12.0) Seconds INR (0.9-1.1) APTT (21.0-31.0) Seconds PTT Ratio VBG pH (7.36-7.41) VBG pCO2 (38-50) mmHg VBG pO2 mmHg VBG HCO3 mmol/L VBG O2 Saturation % VBG Base Excess mEq/L Sodium (136-145) mmol/L Potassium (3.5-5.1) mmol/L Chloride (98-107) mmol/L Carbon Dioxide (21-32) mmol/L Anion Gap (3-11) BUN (6-23) mg/dl Creatinine (0.6-1.2) mg/dl Est Cr Clr Drug Dosing ml/min Est GFR ( Amer) ml/min Est GFR (Non-Af Amer) ml/min BUN/Creatinine Ratio (10-20) Glucose (70-99(Fasting)) mg/dl Osmolality (280-300) mOsm/kg Lactate (0.4-2.0) mmol/L Calcium (8.5-10.1) mg/dl Magnesium (1.7-2.4) mg/dl Total Bilirubin (0.2-1.0) mg/dl AST (13-39) U/L ALT (7-52) U/L Alkaline Phosphatase (34-104) U/L Troponin I High Sens (0-14) pg/ml Total Protein (6.0-8.3) gm/dl Albumin (3.4-5.0) gm/dl Globulin (2.5-4.0) gm/dl Albumin/Globulin Ratio (0.9-2) Lipase (11-82) U/L Urine Color Yellow Urine Appearance Cloudy A (Clear) Urine pH 5.0 (4.5-7.5) Ur Specific [place]nelly 1.040 H (1.000-1.030) Urine Protein 3+ H (Negative) Urine Glucose (UA) 3+ H (Negative) Urine Ketones 4+ H (Negative) Urine Blood 3+ H (Negative) Urine Nitrite Negative (Negative) Urine Bilirubin Negative (Negative) Urine Urobilinogen Negative (Negative) Ur Leukocyte Esterase Negative (Negative) Urine WBC (Auto) >30 H (0-5) /hpf Urine RBC (Auto) 5-10 H (0-4) /hpf U Hyaline Cast (Auto) 10-30 H (0-5) /lpf U Epithel Cells (Auto) >30 H (0-5) /lpf Urine Bacteria (Auto) Negative (Negative) Urine Osmolality (500-800) mOsm/kg Salicylates (3.0-30) mg/dl Urine Opiates Screen Neg (Neg) Ur Methadone, Qual Neg (Neg) Acetaminophen (10-30) ug/ml Urine Barbiturates Neg (Neg) Ur Phencyclidine (PCP) Neg (Neg) U Amphetamin/Meth Scrn Neg (Neg) MDMA (Ecstasy) Screen Neg (Neg) U Benzodiazepines Scrn Neg (Neg) Ur Cocaine Metabolite Neg (Neg) U Marijuana (THC) Screen Neg (Neg) Ethyl Alcohol mg/dL (<10.0) mg/dl SARS-CoV-2, RNA, NAAT NEGATIVE (NEGATIVE) 08/27/22 Range/Units 17:42 WBC (4.8-10.8) K/ul RBC (3.93-5.22) M/uL Hgb (12.0-16.0) g/dl Hct (34.1-44.9) % MCV (80.0-100.0) fL MCH (25.0-34.0) pg MCHC (32.0-36.0) g/dL RDW Std Deviation (36.4-46.3) fL RDW Coeff of Abhi (11.5-14.5) % Plt Count (130-400) K/uL MPV (9.4-12.3) fL Immature Gran % (Auto) % Neut % (Auto) % Lymph % (Auto) % [place] % (Auto) % Eos % (Auto) % Baso % (Auto) % Neut # (Auto) (1.4-6.5) K/uL Lymph # (Auto) (1.2-3.4) K/uL [place] # (Auto) (0.24-0.82) K/uL Eos # (Auto) (0-0.50) K/uL Baso # (Auto) (0-0.2) K/uL Immature Gran # (Auto) (0.00-0.02) K/uL PT (9.0-12.0) Seconds INR (0.9-1.1) APTT (21.0-31.0) Seconds PTT Ratio VBG pH (7.36-7.41) VBG pCO2 (38-50) mmHg VBG pO2 mmHg VBG HCO3 mmol/L VBG O2 Saturation % VBG Base Excess mEq/L Sodium (136-145) mmol/L Potassium (3.5-5.1) mmol/L Chloride (98-107) mmol/L Carbon Dioxide (21-32) mmol/L Anion Gap (3-11) BUN (6-23) mg/dl Creatinine (0.6-1.2) mg/dl Est Cr Clr Drug Dosing ml/min Est GFR ( Amer) ml/min Est GFR (Non-Af Amer) ml/min BUN/Creatinine Ratio (10-20) Glucose (70-99(Fasting)) mg/dl Osmolality (280-300) mOsm/kg Lactate (0.4-2.0) mmol/L Calcium (8.5-10.1) mg/dl Magnesium (1.7-2.4) mg/dl Total Bilirubin (0.2-1.0) mg/dl AST (13-39) U/L ALT (7-52) U/L Alkaline Phosphatase (34-104) U/L Troponin I High Sens (0-14) pg/ml Total Protein (6.0-8.3) gm/dl Albumin (3.4-5.0) gm/dl Globulin (2.5-4.0) gm/dl Albumin/Globulin Ratio (0.9-2) Lipase (11-82) U/L Urine Color Urine Appearance (Clear) Urine pH (4.5-7.5) Ur Specific [place] (1.000-1.030) Urine Protein (Negative) Urine Glucose (UA) (Negative) Urine Ketones (Negative) Urine Blood (Negative) Urine Nitrite (Negative) Urine Bilirubin (Negative) Urine Urobilinogen (Negative) Ur Leukocyte Esterase (Negative) Urine WBC (Auto) (0-5) /hpf Urine RBC (Auto) (0-4) /hpf U Hyaline Cast (Auto) (0-5) /lpf U Epithel Cells (Auto) (0-5) /lpf Urine Bacteria (Auto) (Negative) Urine Osmolality 833 H (500-800) mOsm/kg Salicylates (3.0-30) mg/dl Urine Opiates Screen (Neg) Ur Methadone, Qual (Neg) Acetaminophen (10-30) ug/ml Urine Barbiturates (Neg) Ur Phencyclidine (PCP) (Neg) U Amphetamin/Meth Scrn (Neg) MDMA (Ecstasy) Screen (Neg) U Benzodiazepines Scrn (Neg) Ur Cocaine Metabolite (Neg) U Marijuana (THC) Screen (Neg) Ethyl Alcohol mg/dL (<10.0) mg/dl SARS-CoV-2, RNA, NAAT (NEGATIVE) Imaging Data Radiologist's Impression: Chest CTA 08/27/22 16:38 CT angio chest PE protocol CT DOSE: 463.38 mGy.cm HISTORY: 31 years-old Female with ro PE. Acute shortness of breath TECHNIQUE: Multiple CTA images of the chest were obtained after the intravenous administration of 122 ml Optiray. Coronal and sagittal MIPS were obtained from the axial data set and were submitted for review. All measurements were obtained according to NASCET criteria. A dose lowering technique was utilized adhering to the principles of ALARA. COMPARISON: Chest radiograph 09/19/2020 FINDINGS: CTA: There is adequate opacification of the pulmonary arteries to the level of the subsegmental branches without convincing evidence of acute pulmonary embolism. Normal thoracic aorta.Heart size is normal. CT CHEST: No thyroid nodule identified. No lymphadenopathy identified. 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 No pneumothorax, pleural effusion or airspace consolidation. Likely benign 3 mm solid nodule right lower lobe, image 87. Hepatic steatosis. No acute process of the imaged upper abdomen. 8 mm circumscribed soft tissue attenuating mass of the upper inner quadrant left breast. No acute fracture. IMPRESSION: 1. No acute intrathoracic abnormality. No pulmonary emboli. 2. 8 mm mass of the upper inner quadrant left breast, possibly a lymph node. Correlation with a nonemergent follow-up breast ultrasound recommended. 3. Hepatic steatosis. ACT 112: Negative or not required by law. The above report was generated using voice recognition software. It may contain grammatical, syntax or spelling errors. Electronically signed by: Armando Ramirez M.D. 08/27/2022 6:21 PM [facility] Narrative Cardiac monitoring: An order was placed for continuous cardiac monitoring. The monitor shows a rate of 120 with sinus rhythm Vital signs improved with IV fluids. Serial abdominal exams showed no pain on palpation of the abdomen. Labs show leukocytosis of 15.26. EMR reviewed and the patient has chronic leukocytosis going up to 27.49 in 2019. Patient's electrolytes show sodium 129. Bicarb of 8. Anion gap of 23. Patient's glucose is only 299. Patient does not report any metformin usage or history of diabetes. No metformin for PCOS. Serum osmolality was then added to the patient's lab work which showed a serum osmolality of 303. Patient's calculated osmolality was 279. Serum alcohol was negative. Osmolar gap was 24. Patient's VBG shows a venous pH of 7.06 with a PCO2 of 34. Given the patient's acidosis, osmolar and anion gap, there was very strong concern about a toxic alcohol ingestion. When I confronted the patient about this she adamantly did not denied any ingestion of antifreeze, when she wiper fluid, or any other toxic alcohols. Initially the patient reported no feelings of depression however she then admitted to me she has been feeling depressed but would not try to hurt her self. When the heel caser from psychiatry started talking the patient she did admit to having more thoughts of wanting to hurt herself and reports that she had a suicide attempt of trying to hang herself in the last year. Again, given the patient's acidosis, osmolar gap, and anion gap there is a very strong suspicion for toxic alcohol ingestion and thus fomepizole was ordered for the patient. Discussed the case with Rajwinder SAMUEL for Dr. Ireland who will evaluate the patient for admission. Impression & Plan Metabolic acidosis, High serum osmolar gap, High anion gap metabolic acidosis Discharge Plan Visit Data Chief Complaint: Shortness of Breath/Dyspnea Stated Complaint: INSOMIA, HEART RACING, SOB, DRY MOUTH ED Provider: Rowdy Rogers Discharge Problem: Metabolic acidosis, High serum osmolar gap, High anion gap metabolic acidosis Patient Disposition: Admitted As Inpatient Discharge Instructions Interventions: ED Discharge Assessment Last Done: 08/27/22 22:59 Forms Stand Alone Forms: [facility] [employer] Prescriptions Prescriptions: No Action sertraline 50 mg tablet 50 mg PO QAM drospirenone-ethinyl estradiol [Vestura (28)] 3-0.02 mg tablet 1 tab PO QAM Referrals Referrals: Susan Morrow CRNP [Primary Care Provider] -
[2022-08-27] MEDS ORDERED: PENDING 1/2NSS+20mEq KCL IVF SCH (23:32)
[2022-08-27] MEDS ORDERED: STAT IV Infusion **Titration per Protocol STA (23:32)
[2022-08-27] MEDS ORDERED: PHARMACY GLYCEMIC MGMT CONSULT PRN (23:32)
[2022-08-27] MEDS ORDERED: DKA GOAL RANGE 150-250 mg/dl ONE (23:32)
[2022-08-27] MEDS ORDERED: POTASSIUM CHLORIDE CRTAB 20 MEQ TABCR PO STA (23:32)
[2022-08-27] MEDS ORDERED: ICU Protocol for HYPERglycemia PRN (23:32)
[2022-08-27] MEDS ORDERED: PENDING D5 1/2NS+20mEq KCL IVF SCH (23:32)
--- NOTE | 2022-08-27 23:39 | Critical Care Consultation ---
Date of Consultation August 27, 2022 Assessment & Plan (1) Metabolic acidosis: (2) Leukocytosis: (3) Depression: (4) PCOS (polycystic ovarian syndrome): (5) Abnormal breast finding: Plan Reason Critically Ill: 31 YOF presents for tachycardia, dyspnea, increase thirst and urination. Concern for High AGAP acidosis with elevated osmolar gap. Admit for continued resuscitation and further evaluation of her acidosis with controlling her blood glucose and volume resuscitation with following of acid base and AGAP. Neuro - Anxiety, Headache CAM ICU: Negative - Patient is stressed about her job received Ativan in EMD- no further dosing - Headache is bi-temporal and she reports she only gets these when no sleep or stress- Tylenol - she is without meningismus signs or evidence of encephalopathy at this time. Cardiac - Hypovolemia, Tachycardia - Noted elevation of serum osmo and urine spec grav as well as HGB level of 19 with a -20 Base deficit - Likely related to elevated glucose levels and hypovolemia - Replete volume status - 3L crystalloid - continue rest of her isotonic HCO3 drip at this time then transition to LR or Normosol or dextrose containing fluids with following glucose. - CTA of the chest negative for PE Respiratory - No acute needs - Dyspnea is likley related to increased HR at this time - as above CTA of the chest negative for PE GI - GERD - will initiate PPI at this time RENAL/LYTES - Metabolic Acidosis, Elevated Osmolar Gap - DKA vs. Ingestion - ETHO level less than 10- not intoxicated in appearance or by exam, with noted increase in her blood glucose levels previously- follow renal indices - Her Gap-GAP is 3 when corrected for NA- with NAGMA and AGAP metabolic Acidosis - Lactate is not elevated- again making ingestion less likely - Tylenol and ASA levels not elevated - Her urine is with Ketones, blood, and protein- these have been present prior in 2019 but at lesser levels - Continue to follow her AGAP with initiation of fluids and insulin- if her GAP increases with her ETHO <10 will re-dose fomepizole (12 hour dose at 0730) while awaiting methyl levels - Continue with volume replacement, insulin, thiamine - No acute needs As above follow ENDO - Elevated glucose without diagnosis of Diabetes - Likely component of DKA on arrival as above- HGB A1C in am - Will initiate treatment with insulin infusion and dextrose as her glucose is downtrending with volume - follow labs and supportive care as above HEME - No acute needs - Likely increase in HGB levels with hemoconcentration ID - Leukocytosis - Likely stress response as NLR is 3.5:1 with some likely hemoconcentration as above - follow in am as well as follow fever curve LINES/IV ACCESS - PIV x2 Continue use of these lines DVT PROPHYLAXIS - SCDS, ambulation DISPO I have personally spent 50 minutes of critical care time in the direct management of this patient. This is a life/limb threatening event. This includes time spent evaluating patient, direct bedside care, chart review, placing orders, interpretation of diagnostic studies, discussion with consultants, patient, and family members, as well as other required patient management activities. This time is exclusive of all separately billable procedures, and in addition to any other critical care service time. Thank you for allowing us to participate in the care of this patient. Please refer to my attending physician's documentation for any further recommendations. History of Present Illness Reason for Consultation: High anion gap acidosis Requesting Physician: Carl Sutherland MD Attending Physician: Carl Sutherland MD History of Present Illness 31 YOF presented to the EMD for 2 day history of increased HR and dyspnea. She has medical history of PCOS on oral contraceptives. Admitted to ICU for high anion gap acidosis. She Patient reports that she has been under increased stress over the past few months secondary to being unemployed. She states that she has been having increased urination for the past 3 weeks, going to the bathroom every 1.5-2 hours with dilute clear urine. Patient notes that she has been eating about the same amount of food as she normally does but has been mostly eating pasta and sticky rice. She states that she does not drink nor does she use any other drugs. She does note that she has been taking more Motrin over the past 24-48 hours for a headache that she states she gets mostly when she doesn't sleep. She was feeling well until yesterday when her watch alerted her that her HR was increased and she noted it to be in the 120 range and that she was getting short of breath going up the stairs. She noticed that she was also starting to get dizzy or lightheaded during this time as well so she came to the EMD. In the EMD the patient was noted to be tachycardic, she had routine labs performed- she was noted to have an HCO3 of 6 with a anion gap of 23, serum osmo of 833, and glucose of 299. Toxicology screen was performed that was negative and ETOH level was <10. She was given 2 liters of normal saline and was given an empiric dose of Fomepizole in the EMD. Hospitalist was then consulted for admission, Urine Osmo and Methyl ETOH was sent, she was ordered for insulin drip and given liter of LR with initiation of isotonic HCO3 infusion in sterile water. Patient states that she has a sister with type II DM. She denies any other endocrine issues. Allergies Allergy/AdvReac Type Severity Reaction Status Date / Time silver AdvReac Redness of Verified 08/27/22 18:18 Skin Home Medications Medication Instructions Recorded Confirmed Type sertraline 50 mg tablet 50 mg PO QAM 12/07/19 08/27/22 History drospirenone 3 mg-ethinyl 1 tab PO QAM 08/27/22 08/27/22 History estradiol 0.02 mg tablet (Vestura (28)) Patient History Medical History (Updated 08/28/22 @ 00:10 by JANESSA Morataya) Chronic back pain Depression Heartburn History of abnormal cervical Pap smear Obesity PCOS (polycystic ovarian syndrome) Surgical History H/O eye surgery RIGHT > 1997 History of tooth extraction Family History Sister Pre-diabetes Social History Smoking Status: Never smoker Second Hand Exposure: No; Hx Alcohol Use: No Hx Substance Use: No Preferred Language: Italian Communication Ability: Effective Visual Impairment: No Limitations [employer] Required: No Beliefs That Will Affect Care: None Current Living Situation: Alone Current Living Situation Comment: [facility] Other Information That Helps Us Care for You: No Feels Safe at Home: Yes Safety Concerns: Feels Safe At This Time Assistive Devices: Glasses Review of Systems Review of Systems: Constitutional: No fever/chills, weakness, fatigue, myalgias, anorexia, night sweats Eyes: No diplopia, no worsening or blurred vision ENT: (+) dry mouth normal hearing, no trouble swallowing Respiratory: (+) dyspnea with exertion, no cough, sputum Cardiovascular: (+) palpitations x1 day, NO Chest pain Abdomen: (+) Nausea, NO abdominal pain or vomiting, diarrhea or constipation : (+) Increased urination; Denies dysuria, hematuria, urinary retention Musculoskeletal: (+) leg cramps at night, No joint pain, calf pain, swelling Neurologic: No weakness, numbness/tingling, or balance problems Psychiatric: (+) anxiety, NO depression Skin: No rash or itch Physical Exam Physical Exam: PHYSICAL EXAM: General: awake, alert, no apparent distress Head: bitemporal headache Normocephalic, atraumatic, ENT: PERRL, EOMI, no pharyngeal exudate, mucous membranes dry cracked lips Neuro: AAO x 3, speech clear and appropriate, strength intact bilaterally 5/5, sensation intact and equal all extremities and dermatomes, no pronator drift, no meningismus signs Chest: equal rise and fall of the chest, no accessory muscle use, no heaves or thrills, Clear to auscultation, on room air, Cardiac: Regular rate and rhythm, telemetry reviewed- sinus tachycardia, skin warm dry, cap refill <3 seconds, peripheral pulses +2 no JVD, no murmur, no edema GI: NABS x 4 quadrants, soft, nontender to palpation, no rebound, guarding or tenderness : Spontaneously voiding, no pain, no CVA tenderness, Extremities: Normal inspection, no peripheral edema or erythema, calfs nontender to palpation Psych: Normal mood and affect Skin: no rash or erythema Results & Data Results & Data ([facility]) Vital Signs (Past 12 Hours) Vital Signs Temp Pulse Pulse Resp BP BP Pulse Ox 08/27/22 23:00 36.5 C 115 H 16 147/84 H 99 08/27/22 22:59 08/27/22 22:30 95 08/27/22 22:30 142/95 H 08/27/22 22:00 97 08/27/22 21:30 105 H 97 08/27/22 21:30 134/86 08/27/22 21:00 93 08/27/22 21:00 155/93 H 08/27/22 20:33 141/93 H 08/27/22 20:33 99 08/27/22 20:30 100 08/27/22 20:01 98 08/27/22 20:01 115/84 08/27/22 20:00 97 08/27/22 19:30 98 08/27/22 19:30 150/90 H 08/27/22 19:00 97 08/27/22 19:00 132/97 08/27/22 18:30 96 08/27/22 18:30 132/92 08/27/22 18:04 98 08/27/22 18:04 144/87 H 08/27/22 17:30 113 H 19 98 08/27/22 17:30 131/97 08/27/22 17:17 118 H 15 97 08/27/22 17:13 119 H 20 136/93 97 08/27/22 15:02 105 H 20 97 08/27/22 15:01 97 08/27/22 15:01 120 H 20 136/91 98 08/27/22 14:58 36.4 C L 130 H 18 144/98 H 95 O2 Del Method 08/27/22 23:00 Room Air 08/27/22 22:59 Room Air 08/27/22 22:30 08/27/22 22:30 08/27/22 22:00 08/27/22 21:30 08/27/22 21:30 08/27/22 21:00 08/27/22 21:00 08/27/22 20:33 08/27/22 20:33 08/27/22 20:30 08/27/22 20:01 08/27/22 20:01 08/27/22 20:00 08/27/22 19:30 08/27/22 19:30 08/27/22 19:00 08/27/22 19:00 08/27/22 18:30 08/27/22 18:30 08/27/22 18:04 08/27/22 18:04 08/27/22 17:30 08/27/22 17:30 08/27/22 17:17 08/27/22 17:13 Room Air 08/27/22 15:02 Room Air 08/27/22 15:01 Room Air 08/27/22 15:01 Room Air 08/27/22 14:58 Room Air Laboratory Results Abnormal lab results 08/27/22 08/27/22 08/27/22 Range/Units 15:10 15:10 15:10 WBC 15.26 H (4.8-10.8) K/ul RBC 6.39 H (3.93-5.22) M/uL Hgb 19.8 H (12.0-16.0) g/dl Hct 56.7 H (34.1-44.9) % Neut # (Auto) 10.45 H (1.4-6.5) K/uL Leon # (Auto) 1.29 H (0.24-0.82) K/uL Baso # (Auto) 0.22 H (0-0.2) K/uL Immature Gran # (Auto) 0.20 H (0.00-0.02) K/uL APTT 32.9 H (21.0-31.0) Seconds VBG pH (7.36-7.41) VBG pCO2 (38-50) mmHg Sodium 129 L (136-145) mmol/L Carbon Dioxide 8 L* (21-32) mmol/L Anion Gap 23 H (3-11) Glucose 299 H (70-99(Fasting)) mg/dl POC Glucose (70-99) mg/dl Osmolality (280-300) mOsm/kg Alkaline Phosphatase 115 H (34-104) U/L Total Protein 9.7 H (6.0-8.3) gm/dl Globulin 5.1 H (2.5-4.0) gm/dl Urine Appearance (Clear) Ur Specific [place] (1.000-1.030) Urine Protein (Negative) Urine Glucose (UA) (Negative) Urine Ketones (Negative) Urine Blood (Negative) Urine WBC (Auto) (0-5) /hpf Urine RBC (Auto) (0-4) /hpf U Hyaline Cast (Auto) (0-5) /lpf U Epithel Cells (Auto) (0-5) /lpf Urine Osmolality (500-800) mOsm/kg Salicylates (3.0-30) mg/dl Acetaminophen (10-30) ug/ml 08/27/22 08/27/22 08/27/22 Range/Units 17:08 17:08 17:08 WBC (4.8-10.8) K/ul RBC (3.93-5.22) M/uL Hgb (12.0-16.0) g/dl Hct (34.1-44.9) % Neut # (Auto) (1.4-6.5) K/uL Leon # (Auto) (0.24-0.82) K/uL Baso # (Auto) (0-0.2) K/uL Immature Gran # (Auto) (0.00-0.02) K/uL APTT (21.0-31.0) Seconds VBG pH 7.06 L (7.36-7.41) VBG pCO2 34 L (38-50) mmHg Sodium (136-145) mmol/L Carbon Dioxide (21-32) mmol/L Anion Gap (3-11) Glucose (70-99(Fasting)) mg/dl POC Glucose (70-99) mg/dl Osmolality 303 H (280-300) mOsm/kg Alkaline Phosphatase (34-104) U/L Total Protein (6.0-8.3) gm/dl Globulin (2.5-4.0) gm/dl Urine Appearance (Clear) Ur Specific [place] (1.000-1.030) Urine Protein (Negative) Urine Glucose (UA) (Negative) Urine Ketones (Negative) Urine Blood (Negative) Urine WBC (Auto) (0-5) /hpf Urine RBC (Auto) (0-4) /hpf U Hyaline Cast (Auto) (0-5) /lpf U Epithel Cells (Auto) (0-5) /lpf Urine Osmolality (500-800) mOsm/kg Salicylates < 3.0 L (3.0-30) mg/dl Acetaminophen < 3 L (10-30) ug/ml 08/27/22 08/27/22 08/27/22 Range/Units 17:24 17:42 23:19 WBC (4.8-10.8) K/ul RBC (3.93-5.22) M/uL Hgb (12.0-16.0) g/dl Hct (34.1-44.9) % Neut # (Auto) (1.4-6.5) K/uL Leon # (Auto) (0.24-0.82) K/uL Baso # (Auto) (0-0.2) K/uL Immature Gran # (Auto) (0.00-0.02) K/uL APTT (21.0-31.0) Seconds VBG pH (7.36-7.41) VBG pCO2 (38-50) mmHg Sodium (136-145) mmol/L Carbon Dioxide (21-32) mmol/L Anion Gap (3-11) Glucose (70-99(Fasting)) mg/dl POC Glucose 204 H (70-99) mg/dl Osmolality (280-300) mOsm/kg Alkaline Phosphatase (34-104) U/L Total Protein (6.0-8.3) gm/dl Globulin (2.5-4.0) gm/dl Urine Appearance Cloudy A (Clear) Ur Specific [place] 1.040 H (1.000-1.030) Urine Protein 3+ H (Negative) Urine Glucose (UA) 3+ H (Negative) Urine Ketones 4+ H (Negative) Urine Blood 3+ H (Negative) Urine WBC (Auto) >30 H (0-5) /hpf Urine RBC (Auto) 5-10 H (0-4) /hpf U Hyaline Cast (Auto) 10-30 H (0-5) /lpf U Epithel Cells (Auto) >30 H (0-5) /lpf Urine Osmolality 833 H (500-800) mOsm/kg Salicylates (3.0-30) mg/dl Acetaminophen (10-30) ug/ml Diagnostic Findings Abnormal Labs 08/27/22 08/27/22 08/27/22 15:10 15:10 15:10 WBC 15.26 H RBC 6.39 H Hgb 19.8 H Hct 56.7 H Neut # (Auto) 10.45 H Leon # (Auto) 1.29 H Baso # (Auto) 0.22 H Immature Gran # (Auto) 0.20 H APTT 32.9 H VBG pH VBG pCO2 Sodium 129 L Carbon Dioxide 8 L* Anion Gap 23 H Glucose 299 H POC Glucose Osmolality Alkaline Phosphatase 115 H Total Protein 9.7 H Globulin 5.1 H Urine Appearance Ur Specific [place] Urine Protein Urine Glucose (UA) Urine Ketones Urine Blood Urine WBC (Auto) Urine RBC (Auto) U Hyaline Cast (Auto) U Epithel Cells (Auto) Urine Osmolality Salicylates Acetaminophen 08/27/22 08/27/22 08/27/22 17:08 17:08 17:08 WBC RBC Hgb Hct Neut # (Auto) Leon # (Auto) Baso # (Auto) Immature Gran # (Auto) APTT VBG pH 7.06 L VBG pCO2 34 L Sodium Carbon Dioxide Anion Gap Glucose POC Glucose Osmolality 303 H Alkaline Phosphatase Total Protein Globulin Urine Appearance Ur Specific [place] Urine Protein Urine Glucose (UA) Urine Ketones Urine Blood Urine WBC (Auto) Urine RBC (Auto) U Hyaline Cast (Auto) U Epithel Cells (Auto) Urine Osmolality Salicylates < 3.0 L Acetaminophen < 3 L 08/27/22 08/27/22 08/27/22 17:24 17:42 23:19 WBC RBC Hgb Hct Neut # (Auto) Leon # (Auto) Baso # (Auto) Immature Gran # (Auto) APTT VBG pH VBG pCO2 Sodium Carbon Dioxide Anion Gap Glucose POC Glucose 204 H Osmolality Alkaline Phosphatase Total Protein Globulin Urine Appearance Cloudy A Ur Specific [place] 1.040 H Urine Protein 3+ H Urine Glucose (UA) 3+ H Urine Ketones 4+ H Urine Blood 3+ H Urine WBC (Auto) >30 H Urine RBC (Auto) 5-10 H U Hyaline Cast (Auto) 10-30 H U Epithel Cells (Auto) >30 H Urine Osmolality 833 H Salicylates Acetaminophen Coding Level of Care Code Critical Care 1st 30-74 mins Diagnoses Metabolic acidosis E87.20 Leukocytosis D72.829 Depression F32.9 PCOS (polycystic ovarian syndrome) E28.2 Abnormal breast finding N64.59
[2022-08-27] MEDS ORDERED: THIAMINE HCL 200 MG in SODIUM CHLORIDE 0.9% 50 ML IV STA (23:42)
[2022-08-27] MEDS ORDERED: NovoLIN-R BOLUS FROM BAG IV ONE (23:45)
[2022-08-27] MEDS: INSULIN REGULAR 250 UNITS in SODIUM CHLORIDE 0.9% 247.5 ML IV SCH (23:56)
[2022-08-28] MEDS ORDERED: Nursing to Pharmacy Communication SCH (00:30)
[2022-08-28 00:33] LABS: BUN Creatinine Ratio 9.1 (10-20); Calcium 7.6 mg/dl (8.5-10.1); Creatinine Clr Calc Pharmacy 106.3 ml/min; Est GFR (African American) 120.9 ml/min; Est GFR (Non-African American) 104.3 ml/min; Phosphorus 2.4 mg/dl (2.5-4.9); Potassium 3.9 mmol/L (3.5-5.1)
[2022-08-28] MEDS: D5W AND 1/2NSS + 20MEQ KCL 20 MEQ/1,000 ML BAG IV SCH ×2 (01:10→07:36)
[2022-08-28 02:59] LABS: Base Excess ABG -21.7 mEq/L (-9-1.8); HCO3 ABG 5 mmol/L (19-24); Oxygen Saturation ABG 99.7 % (90-95); PCO2 ABG 15 mmHg (35-46); PO2 ABG 104 mmHg (80-95)
[2022-08-28 03:27] LABS: Basophils # (auto) 0.13 K/uL (0-0.2); Basophils % (auto) 0.8 %; Eosinophils # (auto) 0.02 K/uL (0-0.50); Eosinophils % (auto) 0.1 %; Hematocrit (blood only) 49.1 % (34.1-44.9); Hemoglobin 16.5 g/dl (12.0-16.0); Immature Granulocytes # (auto) 0.23 K/uL (0.00-0.02); Immature Granulocytes % (auto) 1.3 %; Lymphocytes # (auto) 3.16 K/uL (1.2-3.4); Lymphocytes % (auto) 18.4 %; Mean Corpuscular Hemoglobin 30.3 pg (25.0-34.0); Mean Corpuscular Hgb Conc 33.6 g/dL (32.0-36.0); Mean Corpuscular Volume 90.3 fL (80.0-100.0); Mean Platelet Volume 11.4 fL (9.4-12.3); Monocytes # (auto) 1.47 K/uL (0.24-0.82); Monocytes % (auto) 8.5 %; Neutrophils # (auto) 12.21 K/uL (1.4-6.5); Neutrophils % (auto) 70.9 %; Platelet Count 290 K/uL (130-400); RBC Morphology Unremarkable; RDW Coefficient of Variation 13.4 % (11.5-14.5); RDW Standard Deviation 44.2 fL (36.4-46.3); Red Blood Count 5.44 M/uL (3.93-5.22); White Blood Count 17.22 K/ul (4.8-10.8)
[2022-08-28 03:33] LABS: pH ABG 7.14 (7.35-7.45)
[2022-08-28 03:34] LABS: Albumin Level 4.1 gm/dl (3.4-5.0); Bilirubin Direct 0.1 mg/dl (0-0.2); Bilirubin,Total 0.4 mg/dl (0.2-1.0); Calcium 7.5 mg/dl (8.5-10.1); Creatinine Clr Calc Pharmacy 136.4 ml/min; Est GFR (African American) 142.8 ml/min; Est GFR (Non-African American) 123.2 ml/min; Magnesium 1.9 mg/dl (1.7-2.4); Phosphorus 1.6 mg/dl (2.5-4.9); Total Protein 7.7 gm/dl (6.0-8.3)
[2022-08-28 03:38] LABS: Partial Thromboplastin Time 28.8 Seconds (21.0-31.0); Prothrombin Time 10.7 Seconds (9.0-12.0)
[2022-08-28] MEDS ORDERED: SODIUM PHOSPHATE 3 MMOL/1 ML INFUSION IV STA ×2 (03:40→13:32)
[2022-08-28 03:46] LABS: Allen Test Pos (Pos)
[2022-08-28] MEDS ORDERED: DEXTROSE 5% IV ONE (04:00)
[2022-08-28] MEDS ORDERED: SODIUM PHOSPHATE IV ONE (04:00)
[2022-08-28 05:38] LABS: BUN Creatinine Ratio 8.3 (10-20); Calcium 7.8 mg/dl (8.5-10.1); Creatinine Clr Calc Pharmacy 136.4 ml/min; Est GFR (African American) 142.8 ml/min; Est GFR (Non-African American) 123.2 ml/min; Magnesium 1.9 mg/dl (1.7-2.4); Phosphorus 1.6 mg/dl (2.5-4.9); Potassium 3.9 mmol/L (3.5-5.1)
[2022-08-28] MEDS ORDERED: POTASSIUM CHLORIDE CRTAB 20 MEQ TABCR PO STA ×2 (05:50→20:50)
--- NOTE | 2022-08-28 07:30 | Critical Care Progress Note ---
Date of Service August 28, 2022 Assessment & Plan (1) Metabolic acidosis: (2) Leukocytosis: (3) Depression: (4) PCOS (polycystic ovarian syndrome): Plan Reason Critically Ill: 31 YOF presents for tachycardia, dyspnea, increase thirst and urination. Concern for High AGAP acidosis with elevated osmolar gap. Admit for continued resuscitation and further evaluation of her acidosis with controlling her blood glucose and volume resuscitation with following of acid base and AGAP. Neuro - Anxiety, Headache CAM ICU: Negative - Headache is bi-temporal and she reports she only gets these when no sleep or stress- Tylenol - she is without meningismus signs or evidence of encephalopathy at this time. Cardiac - -- Hypovolemia, Tachycardia --> Improved - Noted elevation of serum osmo and urine spec grav as well as HGB level of 19 with a -20 Base deficit - Likely related to elevated glucose levels and hypovolemia - CTA of the chest negative for PE -- Hypertension New in onset Continue to monitor if it is persistently high then we will start the patient on blood pressure medication Respiratory - -- No acute needs - Dyspnea is likley related to increased HR at this time - as above CTA of the chest negative for PE GI - GERD Continue with PPI RENAL/LYTES - -- HAGMA with elevated osmolar gap -Initial delta-delta less than 1, gap plus nongap, gap is likely coming from ketoacidosis, lactate was normal, for nongap follow-up urine lites - DKA vs. Ingestion , inpatient seems to be unlikely - ETHO level less than 10, talk screen negative, urine ketones are positive - Tylenol and ASA levels not elevated - Osmolar gap 24 which is elevated --> patient got a dose of fomepizole -Follow-up urine lites - No acute needs As above follow ENDO --DKA -New onset, follow-up HbA1c Continue with insulin drip until anion gap closes Decreasing blood glucose no more than 100 in an hour Replace potassium IV when potassium level between 3.3-5.3 BMP every 4 hours Continue with IV fluids HEME - No acute needs - Likely increase in HGB levels with hemoconcentration ID - Leukocytosis - Likely stress response - No clear source of infection, does not show any signs of pneumonia, Continue to hold antibiotics --Prophylaxis VTE: IPC GI: Pantoprazole Lines: Peripheral is going to because it was [facility] We changed it Okay thank you Diet: N.p.o. Plan: In/out: +783, urine output 1400 mL Continue with BMP every 4 hours, was anion gap is closed we will consider bridging to subcu insulin Patient will need diabetic education Patient denies ingesting any illicit alcohol, she hardly drinks. Hypomagnesemia and hypophosphatemia are being replaced Hyponatremia. Will change fluid to D5 NS with 20 of K Will consider starting the patient on blood pressure medication of the pressure remains persistently high Will hold back on further doses of fomepizole. For the time we will continue with bicarb drip, will repeat VBG if it is Greater than/equal to 7.3 then will discontinue later on I have personally spent 35 minutes of critical care time in the direct management of this patient. This is a life/limb threatening event. This includes time spent evaluating patient, direct bedside care, chart review, placing orders, interpretation of diagnostic studies, discussion with consultants, patient, and family members, as well as other required patient management activities. This time is exclusive of all separately billable procedures, and teaching time and separate from and in addition to any other critical care service time. Please note the above document was generated using voice recognition software. It may contain grammatical, syntax or spelling errors. Admission and Anticipated Discharge Date Admission Date: August 27, 2022 Subjective Patient seen and examined at bedside. No acute distress, no adverse events overnight. Overall she says she is feeling better compared to before She denies ingesting any illicit alcohol or drugs. Denies any abdominal pain. No nausea or vomiting Does complain of headache. Review of Systems Review of Systems: All systems reviewed & are unremarkable except as noted in Subjective Physical Exam Physical Exam: Constitutional: No acute distress HEENT: EOMI, PERRLA Respiratory system: Good air entry bilaterally, no wheeze, no rhonchi, no crackles CVS: S1-S2 positive, no murmurs or gallops Abdomen: Soft, nontender, nondistended, positive bowel sounds x4 Extremities: +2 pulses bilaterally radialis/ dorsalis pedis, no cyanosis, no edema Neuro: Awake alert oriented x3 Psych: Normal mood and affect G/U: No Hill Skin: no rashes, warm and dry Lymphatic: no cervical or axillary lymphadenopathy Results & Data Results & Data ([facility]) Vital Signs (Past 12 Hours) Vital Signs Temp Pulse Pulse Resp BP BP Pulse Ox 08/28/22 06:00 108 H 19 95 08/28/22 06:00 155/98 H 08/28/22 05:30 108 H 18 99 08/28/22 05:00 104 H 20 95 08/28/22 05:00 165/98 H 08/28/22 04:00 108 H 17 96 08/28/22 04:00 161/95 H 08/28/22 03:00 109 H 22 95 08/28/22 03:00 147/95 H 08/28/22 02:07 119 H 20 96 08/28/22 02:07 160/96 H 08/28/22 02:06 121 H 24 98 08/28/22 03:43 36.5 C 08/28/22 01:00 120 H 20 98 08/28/22 01:00 140/99 08/28/22 00:00 110 H 20 96 08/28/22 00:00 140/85 08/28/22 01:40 113 H 08/27/22 23:30 115 H 20 97 08/27/22 23:08 116 H 21 99 08/27/22 23:08 147/84 H 08/27/22 23:06 118 H 17 99 08/27/22 23:00 36.5 C 115 H 16 147/84 H 99 08/27/22 22:59 08/27/22 22:30 95 08/27/22 22:30 142/95 H 08/27/22 22:00 97 08/27/22 21:30 105 H 97 08/27/22 21:30 134/86 08/27/22 21:00 93 08/27/22 21:00 155/93 H 08/27/22 20:33 141/93 H 08/27/22 20:33 99 08/27/22 20:30 100 08/27/22 20:01 98 08/27/22 20:01 115/84 08/27/22 20:00 97 08/27/22 19:30 98 08/27/22 19:30 150/90 H O2 Del Method 08/28/22 06:00 08/28/22 06:00 08/28/22 05:30 08/28/22 05:00 08/28/22 05:00 08/28/22 04:00 08/28/22 04:00 08/28/22 03:00 08/28/22 03:00 08/28/22 02:07 08/28/22 02:07 08/28/22 02:06 08/28/22 03:43 08/28/22 01:00 08/28/22 01:00 08/28/22 00:00 08/28/22 00:00 08/28/22 01:40 08/27/22 23:30 08/27/22 23:08 08/27/22 23:08 08/27/22 23:06 08/27/22 23:00 Room Air 08/27/22 22:59 Room Air 08/27/22 22:30 08/27/22 22:30 08/27/22 22:00 08/27/22 21:30 08/27/22 21:30 08/27/22 21:00 08/27/22 21:00 08/27/22 20:33 08/27/22 20:33 08/27/22 20:30 08/27/22 20:01 08/27/22 20:01 08/27/22 20:00 08/27/22 19:30 08/27/22 19:30 Laboratory Results 08/28/22 02:49 08/28/22 04:49 Coding Level of Care Code Critical Care 1st 30-74 mins Diagnoses Metabolic acidosis E87.20 Leukocytosis D72.829 Depression F32.9 PCOS (polycystic ovarian syndrome) E28.2 Time Spent (min) 35
[2022-08-28] MEDS: SODIUM BICARBONATE 8.4% 150 MEQ in WATER, STERILE 1,000 ML IV SCH ×2 (07:35→10:22)
[2022-08-28] MEDS: INSULIN ASPART PER UNIT SC SCH ×4 (07:36→20:00)
[2022-08-28] MEDS ORDERED: MAGNESIUM SULFATE / D5W 1 GM/100 ML BAG IV ONE (08:00)
[2022-08-28 08:06] LABS: Estimated Average Glucose 309 mg/dl; Hemoglobin A1C 12.4 % (4.5-5.6)
[2022-08-28] MEDS: D5NSS + 20MEQ KCL 20 MEQ/1,000 ML BAG IV SCH ×4 (08:19→19:55)
[2022-08-28] MEDS ORDERED: ACETAMINOPHEN 325 MG TAB PO PRN (08:28)
[2022-08-28] MEDS ORDERED: THIAMINE HCL 200 MG in SODIUM CHLORIDE 0.9% 50 ML IV SCH (09:00)
[2022-08-28] MEDS ORDERED: CARBOHYDRATES FOR HYPOGLYCEMIA PO PRN (09:30)
[2022-08-28] MEDS ORDERED: GLUCOSE 10 TAB/TUBE PO PRN (09:30)
[2022-08-28] MEDS ORDERED: DEXTROSE 50% 50 ML SYRINGE IV PRN (09:30)
[2022-08-28] MEDS ORDERED: GLUCOSE 40% GEL 15 GM TUBE PO PRN (09:30)
[2022-08-28] MEDS ORDERED: LANTUS PER UNIT CHARGE SQ ONE (09:30)
[2022-08-28] MEDS ORDERED: GLUCAGON FOR INJ 1 MG VIAL IM PRN (09:30)
[2022-08-28 10:00] LABS: BUN Creatinine Ratio 7.1 (10-20); Calcium 7.7 mg/dl (8.5-10.1); Creatinine Clr Calc Pharmacy 146.1 ml/min; Magnesium 2.1 mg/dl (1.7-2.4); Phosphorus 1.6 mg/dl (2.5-4.9); Potassium 3.9 mmol/L (3.5-5.1)
[2022-08-28] MEDS ORDERED: lisinopril 10 MG TAB PO SCH (10:15)
[2022-08-28] MEDS ORDERED: PANTOprazole 40 MG in SYRINGE 0 ML IV SCH (11:00)
--- NOTE | 2022-08-28 11:09 | Hospitalist Progress Note ---
Date of Service August 28, 2022 Assessment & Plan (1) Diabetic ketoacidosis: Plan: Glucose 299 mg/dL on admission, VBG pH 7.06, bicarb 8, anion gap 23 IV fluids switch to D5 normal saline with KCl 20 meq @250 ml/hr Continue insulin drip now with reduced glucose goal of 110-180 per ICU management Switch to subcutaneous insulin once anion gap closes Electrolytes are being replaced as needed per ICU protocol Appreciate ongoing ICU management (2) T2DM (type 2 diabetes mellitus): Plan: HbA1c 12.4 Consult health educator (3) Metabolic acidosis: Plan: Mixed acidosis with both anion gap due to ketones as above non anion gap Fomepizole loading dose given in the ER, not repeated Ethyl alcohol level less than 10 mg/dL, salicylates negative, acetaminophen negative Urine toxicology negative Ethylene glycol pending, methyl alcohol level pending (4) Leukocytosis: Plan: Suspect stress related to DKA as above. No infective cause found on CT chest or urinalysis. Do not suspect alternative source of infection on exam. (5) Depression: Plan: Will restart sertraline tomorrow if stable (6) PCOS (polycystic ovarian syndrome): Plan: Continue her usual combined oral contraceptive when available (7) Abnormal breast finding: Plan: 8mm mass upper inner quadrant left breath - will need follow up US as an outpatient. Plan VTE prophylaxis -low risk Diet -n.p.o. pending anion gap closing Disposition -continued admission and intensive care unit Admission and Anticipated Discharge Date Admission Date: August 27, 2022 Subjective All questions from patient onset. Generally feeling much improved with no dizziness or headache. No illicit alcohol or drugs. No abdominal pain, diarrhea, fever, chills, nausea, vomiting. No urinary symptoms. She reports mild nasal congestion prior to this illness. Urinary frequency and polydipsia for the last week. Review of Systems Review of Systems: All systems reviewed & are unremarkable except as noted in Subjective Physical Exam Constitutional: WD/WN, vitals as above Eyes: + anicteric sclerae; normal pupil size ENMT: external ear and nose normal, oropharynx normal Neck: trachea midline, no thyromegaly Respiratory: normal respiratory effort, lungs clear to auscultation Cardiovascular: RRR, no murmur, no edema Gastrointestinal (Abdomen): normal bowel sounds, soft, nontender, no hepatosplenomegaly Musculoskeletal: no cyanosis or clubbing, extremities motor strength 5/5 Skin: no rashes, warm and dry Neurologic: moves all extremities and awake; not confused Psychiatric: A+Ox3, euthymic affect Genitourinary: no CVA tenderness Results & Data Results & Data ([facility]) Vital Signs (Past 12 Hours) Vital Signs Temp Pulse Resp BP Pulse Ox 08/28/22 08:00 108 H 08/28/22 06:00 108 H 19 95 08/28/22 06:00 155/98 H 08/28/22 05:30 108 H 18 99 08/28/22 05:00 104 H 20 95 08/28/22 05:00 165/98 H 08/28/22 04:00 108 H 17 96 08/28/22 04:00 161/95 H 08/28/22 03:00 109 H 22 95 08/28/22 03:00 147/95 H 08/28/22 02:07 119 H 20 96 08/28/22 02:07 160/96 H 08/28/22 02:06 121 H 24 98 08/28/22 03:43 36.5 C 08/28/22 01:00 120 H 20 98 08/28/22 01:00 140/99 08/28/22 00:00 110 H 20 96 08/28/22 00:00 140/85 08/28/22 01:40 113 H 08/27/22 23:30 115 H 20 97 PG Care Time/CCT Total # of Minutes Spent Total Time Spent with Patient: Total time spent is greater than 50% in coordination of care (as documented) at patient's floor/unit and/or counseling patient: Coding Level of Care Code 37251 Subseq Hosp Care Lvl 3 Diagnoses Diabetic ketoacidosis E11.10 T2DM (type 2 diabetes mellitus) E11.9 Metabolic acidosis E87.20 Leukocytosis D72.829 Depression F32.9 PCOS (polycystic ovarian syndrome) E28.2 Abnormal breast finding N64.59
[2022-08-28 11:10] LABS: Creatinine Urine Random 14.2 mg/dl; Potassium Random Urine 17.2 mmol/L
--- NOTE | 2022-08-28 12:50 | Pharmacy Report ---
Pharmacy Glycemic Short Note 2 - Date of Service August 28, 2022 - Glycemic Short BSG Results (Last 24 hours): 08/27/22 08/27/22 08/27/22 15:10 23:19 23:41 Glucose 299 H 211 H POC Glucose 204 H 08/28/22 08/28/22 08/28/22 00:23 01:30 02:34 Glucose POC Glucose 197 H 179 H 174 H 08/28/22 08/28/22 08/28/22 02:49 02:49 03:36 Glucose 194 H Cancelled POC Glucose 199 H 08/28/22 08/28/22 08/28/22 04:49 05:25 07:52 Glucose 197 H POC Glucose 197 H 199 H 08/28/22 08/28/22 08/28/22 09:11 09:29 10:58 Glucose 212 H POC Glucose 197 H 211 H 08/28/22 12:20 Glucose POC Glucose 182 H OUTPATIENT ANTIDIABETIC REGIMEN: * None * HbA1c = 12.4% (08/28/22) ASSESSMENT: * 31 yo F presented to ED yesterday with low back pain and generally feeling unwell. Labs upon presentation showed an Anion-Gap Metabolic Acidosis. Question if this was Ethylene glycol induced vs DKA. Given A1c, most likely related to DKA. New diagnosis for patient so no diabetes meds prior to admission. Reports a history of PCOS but no metformin use. * Given a 2 L NS bolus in ED. Started on IV insulin drip at 8 units/hr with an initial bolus of 8 units. * Labs: * Admission: Na+ 129 (corrected = 134), K+ 4.2, CO2 8, AG 23, SCr 0.94, BSG 299, Osmolality 303, 4+ ketones in urine, VBG 7.06 * Most recent: Na+ 131 (corrected = 134), K+ 3.9, CO2 12, AG 13, SCr 0.56, BSG 212, VBG 7.21 * Initially started on D5 1/2 NS + 20 KCl at 150 mL/hr along with 150 mEq of Sodium Bicarbonate in Sterile Water at 150 mL/hr. Sodium level remained below goal so fluids switched this morning to D5 NS + 20 KCl @ 250 mL/hr. Sodium Bicarb infusion was discontinued. Remains in DKA still as we await AG to close. Did give 30 units of Lantus around 1000 today to assist when it is time to transition to subcutaneous insulin. Does remain NPO but diet will be ordered once gap is closed. * Expecting insulin to transition from IV to SC at some point this afternoon/evening. PLAN FOR INPATIENT GLYCEMIC CONTROL: * IV regular insulin infusion * Current rate = 5.8 units/hr * The following parameters must be met prior to stopping the IV insulin drip: VBG pH > 7.30, Anion Gap < 12, Serum CO2 > 15, insulin drip rate 2 units/hr or less. * Basal insulin * Lantus 30 units SC x 1 around 1000 this AM * If above criteria met this evening: recommend HS Lantus scale of 0 units (for BSG < 140), 10 units (for BSG 140-180), and 15 units (for BSG > 180) followed by Lantus 30 units SC qAM starting tomorrow morning. * Bolus insulin * Per insulin infusion calculator until drip is shut off * If transitioned off the drip this evening, then see recommendations below: * NovoLog per scale ACHS or Q6hrs while NPO * Goal Range: Low 110 mg/dL - High 140 mg/dL * Correction Factor: 20 mg/dL/unit * Nutritional / Prandial insulin per carb ratio of 1 unit per 6 grams CHO consumed
[2022-08-28 13:24] LABS: BUN Creatinine Ratio 5.6 (10-20); Calcium 7.8 mg/dl (8.5-10.1); Creatinine Clr Calc Pharmacy 151.5 ml/min; Est GFR (African American) 147.8 ml/min; Est GFR (Non-African American) 127.5 ml/min; Potassium 3.8 mmol/L (3.5-5.1)
[2022-08-28 13:30] LABS: Magnesium 2.4 mg/dl (1.7-2.4)
[2022-08-28] MEDS ORDERED: SODIUM PHOSPHATE 24 MMOL in SODIUM CHLORIDE 0.9% 500 ML IV ONE (13:45)
[2022-08-28 16:30] LABS: BUN Creatinine Ratio 5.2 (10-20); Calcium 7.5 mg/dl (8.5-10.1); Creatinine Clr Calc Pharmacy 141.1 ml/min; Est GFR (African American) 144.4 ml/min; Est GFR (Non-African American) 124.6 ml/min; Magnesium 2.2 mg/dl (1.7-2.4); Phosphorus 1.6 mg/dl (2.5-4.9); Potassium 3.5 mmol/L (3.5-5.1)
[2022-08-28] MEDS: POTASSIUM CHLORIDE / WTR 10 MEQ/100 ML PLCT IV SCH ×4 (17:30→20:52)
--- NOTE | 2022-08-28 20:01 | Billing Data ---
Date of Service August 28, 2022 Coding Level of Care Code Critical Care 1st - mins
[2022-08-28 20:43] LABS: BUN Creatinine Ratio 5.2 (10-20); Calcium 7.6 mg/dl (8.5-10.1); Creatinine Clr Calc Pharmacy 141.1 ml/min; Est GFR (African American) 144.4 ml/min; Est GFR (Non-African American) 124.6 ml/min; Magnesium 2.1 mg/dl (1.7-2.4); Phosphorus 1.6 mg/dl (2.5-4.9); Potassium 3.3 mmol/L (3.5-5.1)
[2022-08-28] MEDS: VESTURA PO SCH (20:51)
[2022-08-28] MEDS ORDERED: LANTUS PER UNIT CHARGE SQ SCH (21:00)
[2022-08-29] MEDS: D5NSS + 20MEQ KCL 20 MEQ/1,000 ML BAG IV SCH ×5 (00:04→09:08)
[2022-08-29 00:50] LABS: Anion Gap 9 (3-11); BUN Creatinine Ratio 3.4 (10-20); Blood Urea Nitrogen 2 mg/dl (6-23); Calcium 7.8 mg/dl (8.5-10.1); Carbon Dioxide 17 mmol/L (21-32); Chloride 109 mmol/L (98-107); Creatinine Clr Calc Pharmacy 141.1 ml/min; Est GFR (African American) 144.4 ml/min; Est GFR (Non-African American) 124.6 ml/min; Glucose 132 mg/dl (70-99(Fasting)); Potassium 3.4 mmol/L (3.5-5.1); Sodium 135 mmol/L (136-145)
[2022-08-29] MEDS ORDERED: POTASSIUM PHOS 3 MMOL/1 ML INFUSION IV STA ×2 (01:00→07:31)
[2022-08-29 01:01] LABS: Phosphorus < 1.0 mg/dl (2.5-4.9)
[2022-08-29] MEDS ORDERED: POTASSIUM PHOSPHATE 24 MMOL in SODIUM CHLORIDE 0.9% 500 ML IV ONE (01:15)
[2022-08-29 05:08] LABS: Basophils % (auto) 0.9 %; Eosinophils # (auto) 0.14 K/uL (0-0.50); Eosinophils % (auto) 1.3 %; Hematocrit (blood only) 39.3 % (34.1-44.9); Hemoglobin 13.8 g/dl (12.0-16.0); Immature Granulocytes # (auto) 0.13 K/uL (0.00-0.02); Immature Granulocytes % (auto) 1.2 %; Lymphocytes # (auto) 3.55 K/uL (1.2-3.4); Lymphocytes % (auto) 33.6 %; Mean Corpuscular Hemoglobin 30.6 pg (25.0-34.0); Mean Corpuscular Hgb Conc 35.1 g/dL (32.0-36.0); Mean Corpuscular Volume 87.1 fL (80.0-100.0); Mean Platelet Volume 10.8 fL (9.4-12.3); Monocytes # (auto) 1.32 K/uL (0.24-0.82); Monocytes % (auto) 12.5 %; Neutrophils # (auto) 5.34 K/uL (1.4-6.5); Neutrophils % (auto) 50.5 %; Platelet Count 267 K/uL (130-400); RDW Coefficient of Variation 13.5 % (11.5-14.5); RDW Standard Deviation 42.5 fL (36.4-46.3); Red Blood Count 4.51 M/uL (3.93-5.22); White Blood Count 10.58 K/ul (4.8-10.8)
[2022-08-29 05:25] LABS: Partial Thromboplastin Time 26.8 Seconds (21.0-31.0); Prothrombin Time 10.9 Seconds (9.0-12.0)
[2022-08-29 05:40] LABS: Albumin Level 3.2 gm/dl (3.4-5.0); Bilirubin Direct 0.1 mg/dl (0-0.2); Bilirubin,Total 0.7 mg/dl (0.2-1.0); Magnesium 1.9 mg/dl (1.7-2.4); Total Protein 6.1 gm/dl (6.0-8.3)
[2022-08-29 06:58] LABS: Anion Gap 8 (3-11); BUN Creatinine Ratio 4.4 (10-20); Blood Urea Nitrogen 2 mg/dl (6-23); Calcium 7.4 mg/dl (8.5-10.1); Carbon Dioxide 16 mmol/L (21-32); Chloride 111 mmol/L (98-107); Creatinine Clr Calc Pharmacy 181.8 ml/min; Est GFR (African American) > 150.0 ml/min; Est GFR (Non-African American) 135.4 ml/min; Glucose 148 mg/dl (70-99(Fasting)); Potassium 3.8 mmol/L (3.5-5.1); Sodium 135 mmol/L (136-145)
[2022-08-29] MEDS ORDERED: POTASSIUM PHOSPHATE 21 MMOL in SODIUM CHLORIDE 0.9% 500 ML IV ONE (08:00)
--- NOTE | 2022-08-29 08:24 | Critical Care Progress Note ---
Date of Service August 29, 2022 Assessment & Plan (1) Metabolic acidosis: (2) Leukocytosis: (3) Depression: (4) PCOS (polycystic ovarian syndrome): Plan Reason Critically Ill: 31 yo F presents for tachycardia, dyspnea, increase thirst and urination. Concern for High AGAP acidosis with elevated osmolar gap. Admit for continued resuscitation and further evaluation of her acidosis with controlling her blood glucose and volume resuscitation with following of acid base and AGAP. Neuro - Anxiety, Headache CAM ICU: Negative - Headache is bi-temporal and she reports she only gets these when no sleep or stress- Tylenol - she is without meningismus signs or evidence of encephalopathy at this time. Cardiac - -- Hypertension Started on lisinopril Respiratory - -- No acute needs - Dyspnea is likley related to increased HR at this time - as above CTA of the chest negative for PE GI - GERD Continue with PPI RENAL/LYTES - --S/p HAGMA with elevated osmolar gap -Initial delta-delta less than 1, gap plus nongap, gap is likely coming from k etoacidosis, lactate was normal, for nongap follow-up urine lites - DKA vs. Ingestion , inpatient seems to be unlikely - ETHO level less than 10, talk screen negative, urine ketones are positive - Tylenol and ASA levels not elevated - Osmolar gap 24 which is elevated --> patient got a dose of fomepizole -Urine lites showing positive gap - No acute needs As above follow ENDO --DKA -New onset diabetes, HbA1c 12.4 Continue with insulin drip until anion gap closes Decreasing blood glucose no more than 100 in an hour Replace potassium IV when potassium level between 3.3-5.3 BMP every 4 hours Continue with IV fluids HEME - -Monitor H&H ID - Leukocytosis - Likely stress response - No clear source of infection, does not show any signs of pneumonia, Continue to hold antibiotics --Prophylaxis VTE: None, patient moving around in the room GI: Pantoprazole Lines: Peripheral is going to because it was [facility] We changed it Okay thank you Diet: N.p.o. Plan: In/out: +704, urine output 6100 mL Blood pressure is fairly controlled. I will go down on lisinopril to 5 mg. Anion gap has been closed since midnight. We will bridge to subcu insulin. Hypophosphatemia, hypomagnesemia and hypokalemia being replaced Go down on the rate to 125 mL an hour. Continue with D5 NS till the patient is on insulin drip. Saw the patient on clear liquids diabetic diet and advance as tolerated Please note the above document was generated using voice recognition software. It may contain grammatical, syntax or spelling errors.Any formal questions or concerns about the content, text or information contained within the body of this dictation should be directly addressed to the provider for clarification. Admission and Anticipated Discharge Date Admission Date: August 27, 2022 Subjective Patient seen and examined at bedside. No acute distress, no adverse events overnight Does complain of occasional nausea but has significantly improved compared to before No abdominal pain, headache is also improved Does not have an appetite. No dysuria. Review of Systems Review of Systems: All systems reviewed & are unremarkable except as noted in Subjective Physical Exam Physical Exam: Constitutional: No acute distress HEENT: EOMI, PERRLA Respiratory system: Good air entry bilaterally, no wheeze, no rhonchi, mild crackles bilateral lower lobes CVS: S1-S2 positive, no murmurs or gallops Abdomen: Soft, nontender, nondistended, positive bowel sounds x4 Extremities: +2 pulses bilaterally radialis/ dorsalis pedis, no cyanosis, no edema Neuro: Awake alert oriented x3 Psych: Normal mood and affect G/U: No Hill Skin: no rashes, warm and dry Lymphatic: no cervical or axillary lymphadenopathy Results & Data Results & Data ([facility]) Vital Signs (Past 12 Hours) Vital Signs Temp Pulse Resp BP Pulse Ox 08/29/22 06:00 93 H 15 98 08/29/22 06:00 115/80 08/29/22 05:30 97 H 18 97 08/29/22 05:00 97 H 16 98 08/29/22 05:00 137/89 08/29/22 05:56 36.5 C 08/29/22 04:00 97 H 18 96 08/29/22 04:00 129/76 08/29/22 03:00 109 H 16 98 08/29/22 03:00 110/71 08/29/22 02:00 105 H 20 98 08/29/22 02:00 107/81 08/29/22 01:00 87 16 98 08/29/22 01:00 113/69 08/29/22 00:00 36.5 C 08/29/22 00:00 98 H 20 98 08/29/22 00:00 129/86 08/28/22 23:00 89 17 99 08/28/22 23:00 128/76 08/29/22 00:00 97 H 08/28/22 22:00 98 H 17 98 08/28/22 22:00 109/81 08/28/22 21:00 97 H 17 100 08/28/22 21:00 127/76 Laboratory Results 08/29/22 05:01 08/29/22 05:01 Coding Level of Care Code 41048 Subseq Hosp Care Lvl 3 Diagnoses Metabolic acidosis E87.20 Leukocytosis D72.829 Depression F32.9 PCOS (polycystic ovarian syndrome) E28.2
[2022-08-29] MEDS: MAGNESIUM SULFATE / D5W 1 GM/100 ML BAG IV SCH ×2 (08:27→10:12)
[2022-08-29] MEDS: PANTOprazole 40 MG TAB PO SCH (08:46)
[2022-08-29] MEDS: VESTURA PO SCH (08:47)
[2022-08-29] MEDS: INSULIN ASPART PER UNIT SC SCH ×6 (08:49→23:27)
[2022-08-29] MEDS ORDERED: LANTUS PER UNIT CHARGE SQ ONE (09:00)
[2022-08-29] MEDS ORDERED: lisinopril 5 MG TAB PO SCH (09:00)
[2022-08-29] MEDS: INSULIN REGULAR 250 UNITS in SODIUM CHLORIDE 0.9% 247.5 ML IV SCH (09:07)
[2022-08-29 09:43] LABS: Anion Gap 9 (3-11); Blood Urea Nitrogen < 2 mg/dl (6-23); Calcium 7.9 mg/dl (8.5-10.1); Carbon Dioxide 17 mmol/L (21-32); Chloride 110 mmol/L (98-107); Est GFR (African American) > 150.0 ml/min; Est GFR (Non-African American) 131.7 ml/min; Glucose 177 mg/dl (70-99(Fasting)); Phosphorus 1.4 mg/dl (2.5-4.9); Potassium 3.4 mmol/L (3.5-5.1); Sodium 136 mmol/L (136-145)
[2022-08-29 13:13] LABS: BUN Creatinine Ratio 3.5 (10-20); Calcium 8.2 mg/dl (8.5-10.1); Creatinine Clr Calc Pharmacy 143.5 ml/min; Est GFR (African American) 145.2 ml/min; Est GFR (Non-African American) 125.3 ml/min; Magnesium 2.5 mg/dl (1.7-2.4); Phosphorus 2.2 mg/dl (2.5-4.9); Potassium 3.8 mmol/L (3.5-5.1)
--- NOTE | 2022-08-29 14:03 | Hospitalist Progress Note ---
Date of Service August 29, 2022 Assessment & Plan (1) Diabetic ketoacidosis: Plan: Glucose 299 mg/dL on admission, VBG pH 7.06, bicarb 8, anion gap 23 Stop IV fluids Off insulin drip today - Lantus 50 units given this morning. Novolog: --Goal BSG Range: Low 110mg/dL, High 140mg/dL --Correction Factor: 20mg/dL/unit --Carbohydrate ratio = 6 g/unit --BSGs ACHS if eating, q6h if npo Electrolytes are being replaced as needed per ICU protocol this morning, will repeat with AM labs Stable for downgrade to PCU today - discussed with Dr Raman (2) T2DM (type 2 diabetes mellitus): Plan: HbA1c 12.4 Consult unit educator (3) Metabolic acidosis: Plan: Mixed acidosis with both anion gap due to ketones as above and non anion gap Fomepizole loading dose given in the ER, not repeated Ethyl alcohol level less than 10 mg/dL, salicylates negative, acetaminophen negative Urine toxicology negative Ethylene glycol pending, methyl alcohol level pending (4) Leukocytosis: Plan: Suspect stress related to DKA as above. Now resolved No infective cause found on CT chest or urinalysis. Do not suspect alternative source of infection on exam. (5) Depression: Plan: Restart her usual sertraline (6) PCOS (polycystic ovarian syndrome): Plan: Continue her usual combined oral contraceptive (7) Abnormal breast finding: Plan: 8mm mass upper inner quadrant left breath - will need follow up US as an outpatient. Plan VTE prophylaxis - low risk Diet - T2DM Disposition - stable for downgrade to PCU Admission and Anticipated Discharge Date Admission Date: August 27, 2022 Subjective No acute concerns or questions for the patient. She reports mostly back to her baseline at this time. No dizziness or lightheadedness when standing up and walking to the bathroom. No fever, chills, upper respiratory symptoms, urinary symptoms. Review of Systems Review of Systems: All systems reviewed & are unremarkable except as noted in Subjective Physical Exam Constitutional: WD/WN, vitals as above Respiratory: normal respiratory effort, lungs clear to auscultation Cardiovascular: RRR, no murmur, no edema Gastrointestinal (Abdomen): normal bowel sounds, soft, nontender, no hepatosplenomegaly Musculoskeletal: no cyanosis or clubbing, extremities motor strength 5/5 Skin: no rashes, warm and dry Neurologic: moves all extremities and awake; not confused Psychiatric: A+Ox3, euthymic affect Results & Data Results & Data ([facility]) Vital Signs (Past 12 Hours) Vital Signs Temp Pulse Resp BP Pulse Ox 08/29/22 11:44 93 H 20 99 08/29/22 11:44 137/112 H 08/29/22 11:03 91 H 20 98 08/29/22 10:00 92 H 19 97 08/29/22 10:00 158/102 H 08/29/22 09:00 90 16 98 08/29/22 09:00 146/92 H 08/29/22 08:00 92 H 18 99 08/29/22 08:00 128/77 08/29/22 07:54 106 H 17 98 08/29/22 07:54 138/74 08/29/22 07:00 95 H 18 98 08/29/22 07:00 127/83 08/29/22 11:10 93 H 08/29/22 08:00 93 H 08/29/22 06:00 93 H 15 98 08/29/22 06:00 115/80 08/29/22 05:30 97 H 18 97 08/29/22 05:00 97 H 16 98 08/29/22 05:00 137/89 08/29/22 05:56 36.5 C 08/29/22 04:00 97 H 18 96 08/29/22 04:00 129/76 08/29/22 03:00 109 H 16 98 08/29/22 03:00 110/71 PG Care Time/CCT Total # of Minutes Spent Total Time Spent with Patient: Total time spent is greater than 50% in coordination of care (as documented) at patient's floor/unit and/or counseling patient: Coding Level of Care Code 98420 Subseq Hosp Care Lvl 3 Diagnoses Diabetic ketoacidosis E11.10 T2DM (type 2 diabetes mellitus) E11.9 Metabolic acidosis E87.20 Leukocytosis D72.829 Depression F32.9 PCOS (polycystic ovarian syndrome) E28.2 Abnormal breast finding N64.59
--- NOTE | 2022-08-29 14:24 | Pharmacy Report ---
Pharmacy Glycemic Short Note 2 - Date of Service August 29, 2022 - Glycemic Short BSG Results (Last 24 hours): 08/28/22 08/28/22 08/28/22 14:37 15:51 15:59 Glucose 169 H POC Glucose 168 H 147 H 08/28/22 08/28/22 08/28/22 17:54 19:58 20:06 Glucose 130 H POC Glucose 123 H 126 H 08/28/22 08/29/22 08/29/22 22:00 00:08 00:19 Glucose 132 H POC Glucose 144 H 140 H 08/29/22 08/29/22 08/29/22 02:00 05:01 06:15 Glucose 148 H POC Glucose 160 H 135 H 08/29/22 08/29/22 08/29/22 08:52 09:05 11:17 Glucose 177 H POC Glucose 180 H 129 H 08/29/22 12:46 Glucose 203 H POC Glucose OUTPATIENT ANTIDIABETIC REGIMEN: * None * HbA1c = 12.4% (08/28/22) ASSESSMENT: 08/29/22 * Patient remains on insulin infusion at a constant rate of 5.8 units/hr. * Patient received 30 units of Lantus yesterday. * Will give Lantus 50 units today. (weight-based stress of 3) --> most likely this will become too aggressive for patient but she is insulin deficient. * Novolog weight-based stress of 3 + overnight checks to ensure adequate coverage. BACKGROUND * 31 yo F presented to ED yesterday with low back pain and generally feeling unwell. Labs upon presentation showed an Anion-Gap Metabolic Acidosis. Question if this was Ethylene glycol induced vs DKA. Given A1c, most likely related to DKA. New diagnosis for patient so no diabetes meds prior to admission. Reports a history of PCOS but no metformin use. * Given a 2 L NS bolus in ED. Started on IV insulin drip at 8 units/hr with an initial bolus of 8 units. * Labs: * Admission: Na+ 129 (corrected = 134), K+ 4.2, CO2 8, AG 23, SCr 0.94, BSG 299, Osmolality 303, 4+ ketones in urine, VBG 7.06 * Most recent: Na+ 131 (corrected = 134), K+ 3.9, CO2 12, AG 13, SCr 0.56, BSG 212, VBG 7.21 * Initially started on D5 1/2 NS + 20 KCl at 150 mL/hr along with 150 mEq of Sodium Bicarbonate in Sterile Water at 150 mL/hr. Sodium level remained below goal so fluids switched this morning to D5 NS + 20 KCl @ 250 mL/hr. Sodium Bicarb infusion was discontinued. Remains in DKA still as we await AG to close. Did give 30 units of Lantus around 1000 today to assist when it is time to transition to subcutaneous insulin. Does remain NPO but diet will be ordered once gap is closed. * Expecting insulin to transition from IV to SC at some point this afternoon/evening. PLAN FOR INPATIENT GLYCEMIC CONTROL: * Basal insulin * Lantus 50 units SQ x 1 then re-evaluate on 08/30 * Bolus insulin * NovoLog per scale ACHS or Q6hrs while NPO * Goal Range: Low 110 mg/dL - High 140 mg/dL * Correction Factor: 20 mg/dL/unit * Nutritional / Prandial insulin per carb ratio of 1 unit per 6 grams CHO consumed
[2022-08-29 15:26] LABS: Methyl Alcohol Comment WHOLE BLOOD; Methyl Alcohol Level NONE DETECTED (NONE DETECTED)
[2022-08-29] MEDS ORDERED: lisinopril 5 MG TAB PO ONE (16:00)
--- NOTE | 2022-08-29 22:00 | Electrocardiogram Report ---
Test Reason : Blood Pressure : / mmHG Vent. Rate : 128 BPM Atrial Rate : 128 BPM P-R Int : 132 ms QRS Dur : 078 ms QT Int : 328 ms P-R-T Axes : 071 160 068 degrees QTc Int : 478 ms Sinus tachycardia Possible Left atrial enlargement Right axis deviation Nonspecific ST abnormality Abnormal ECG When compared with ECG of 19-DEC-2019 14:31, Vent. rate has increased BY 46 BPM QRS axis Shifted right Confirmed by Ranjan Vargas ([id number]) on 08/29/2022 10:00:31 PM Referred By: Confirmed By:Ranjan Vargas
[2022-08-30] MEDS: INSULIN ASPART PER UNIT SC SCH ×5 (03:59→20:16)
[2022-08-30 05:10] LABS: Basophils # (auto) 0.13 K/uL (0-0.2); Basophils % (auto) 1.1 %; Eosinophils # (auto) 0.11 K/uL (0-0.50); Hematocrit (blood only) 42.4 % (34.1-44.9); Hemoglobin 15.1 g/dl (12.0-16.0); Immature Granulocytes # (auto) 0.06 K/uL (0.00-0.02); Immature Granulocytes % (auto) 0.5 %; Lymphocytes # (auto) 4.02 K/uL (1.2-3.4); Lymphocytes % (auto) 35.4 %; Mean Corpuscular Hemoglobin 30.5 pg (25.0-34.0); Mean Corpuscular Hgb Conc 35.6 g/dL (32.0-36.0); Mean Corpuscular Volume 85.7 fL (80.0-100.0); Mean Platelet Volume 11.1 fL (9.4-12.3); Monocytes # (auto) 1.61 K/uL (0.24-0.82); Monocytes % (auto) 14.2 %; Neutrophils # (auto) 5.42 K/uL (1.4-6.5); Neutrophils % (auto) 47.8 %; Platelet Count 261 K/uL (130-400); RDW Coefficient of Variation 13.2 % (11.5-14.5); RDW Standard Deviation 40.7 fL (36.4-46.3); Red Blood Count 4.95 M/uL (3.93-5.22); White Blood Count 11.35 K/ul (4.8-10.8)
[2022-08-30 06:02] LABS: Anion Gap 15 (3-11); BUN Creatinine Ratio 9.1 (10-20); Blood Urea Nitrogen 4 mg/dl (6-23); Calcium 8.7 mg/dl (8.5-10.1); Carbon Dioxide 19 mmol/L (21-32); Chloride 100 mmol/L (98-107); Est GFR (African American) > 150.0 ml/min; Est GFR (Non-African American) 136.4 ml/min; Glucose 159 mg/dl (70-99(Fasting)); Magnesium 2.1 mg/dl (1.7-2.4); Phosphorus 2.8 mg/dl (2.5-4.9); Sodium 134 mmol/L (136-145)
[2022-08-30] MEDS ORDERED: POTASSIUM CHLORIDE CRTAB 20 MEQ TABCR PO STA (07:16)
[2022-08-30] MEDS: VESTURA PO SCH (07:22)
[2022-08-30] MEDS: lisinopril 10 MG TAB PO SCH (07:22)
[2022-08-30] MEDS: PANTOprazole 40 MG TAB PO SCH (07:22)
[2022-08-30] MEDS: SERTRALINE HCL 50 MG TABLET PO SCH (07:22)
[2022-08-30] MEDS ORDERED: LANTUS PER UNIT CHARGE SQ ONE (09:00)
--- NOTE | 2022-08-30 10:37 | Hospitalist Progress Note ---
Date of Service August 30, 2022 Assessment & Plan (1) Diabetic ketoacidosis: Plan: Glucose 299 mg/dL on admission, VBG pH 7.06, bicarb 8, anion gap 23 Mild increase in anion gap today however suspect this is just because she came off intravenous dextrose and intravenous insulin yesterday. Suspect will decrease over the next day and will repeat labs this afternoon. Lantus 45 units given this morning. Novolog: --Goal BSG Range: Low 110mg/dL, High 140mg/dL --Correction Factor: 20mg/dL/unit --Carbohydrate ratio = 6 g/unit --BSGs ACHS if eating, q6h if npo Plan to start metformin on discharge. Consider adjuvant SGLT2 inhibitor or GLP- 1 on follow up Potassium chloride 40 meq given this morning due to hypokalemia. We will continue to measure electrolytes and replace as necessary. Expected discharge home tomorrow after diabetes education. (2) T2DM (type 2 diabetes mellitus): Plan: HbA1c 12.4 Consult informatics educator (3) Metabolic acidosis: Plan: Mixed acidosis with both anion gap due to ketones as above and non anion gap Fomepizole loading dose given in the ER, not repeated Ethyl alcohol level less than 10 mg/dL, salicylates negative, acetaminophen negative Urine toxicology negative Ethylene glycol pending, methyl alcohol level negative (4) Leukocytosis: Plan: Suspect stress related to DKA as above. Now resolved No infective cause found on CT chest or urinalysis. Do not suspect alternative source of infection on exam. (5) Depression: Plan: Continue sertraline 50 mg p.o. every morning (6) PCOS (polycystic ovarian syndrome): Plan: Continue her usual combined oral contraceptive (7) Abnormal breast finding: Plan: 8mm mass upper inner quadrant left breast - will need follow up US as an outpatient. (8) Hypertension: Plan: Continue lisinopril 10 mg p.o. every morning as antihypertensive and renal protection in setting of diabetes. Plan VTE prophylaxis - low risk Diet - T2DM Disposition -continue on PCU, expected discharge tomorrow. Admission and Anticipated Discharge Date Admission Date: August 27, 2022 Subjective Reports feeling better every day. Discussed incidental 8mm mass on the upper inner quadrant of left breast. Patient does not feel a mass in this position. Plan to follow-up with an outpatient ultrasound on discharge. Review of Systems Review of Systems: All systems reviewed & are unremarkable except as noted in Subjective Physical Exam Constitutional: WD/WN, vitals as above Respiratory: normal respiratory effort, lungs clear to auscultation Cardiovascular: RRR, no murmur, no edema Gastrointestinal (Abdomen): normal bowel sounds, soft, nontender, no hepatosplenomegaly Neurologic: moves all extremities and awake; not confused Psychiatric: A+Ox3, euthymic affect Genitourinary: no CVA tenderness Results & Data Results & Data ([facility]) Vital Signs (Past 12 Hours) Vital Signs Temp Pulse Pulse Resp BP BP Pulse Ox 08/30/22 08:44 110 H 14 124/75 96 08/30/22 07:40 92 H 08/30/22 04:00 92 H 08/30/22 03:42 96 H 15 132/94 97 08/30/22 03:00 36.8 C 08/29/22 23:50 90 08/29/22 23:19 97 H 15 131/85 98 08/29/22 23:00 36.9 C O2 Del Method 08/30/22 08:44 Room Air 08/30/22 07:40 08/30/22 04:00 08/30/22 03:42 08/30/22 03:00 08/29/22 23:50 08/29/22 23:19 08/29/22 23:00 PG Care Time/CCT Total # of Minutes Spent Total Time Spent with Patient: Total time spent is greater than 50% in coordination of care (as documented) at patient's floor/unit and/or counseling patient: Coding Level of Care Code 96872 Subseq Hosp Care Lvl 2 Diagnoses Diabetic ketoacidosis E11.10 T2DM (type 2 diabetes mellitus) E11.9 Metabolic acidosis E87.20 Leukocytosis D72.829 Depression F32.9 PCOS (polycystic ovarian syndrome) E28.2 Abnormal breast finding N64.59 Hypertension I10
[2022-08-30 12:47] LABS: BUN Creatinine Ratio 8.6 (10-20); Calcium 9.3 mg/dl (8.5-10.1); Creatinine Clr Calc Pharmacy 140.8 ml/min; Est GFR (African American) 144.4 ml/min; Est GFR (Non-African American) 124.6 ml/min; Potassium 3.8 mmol/L (3.5-5.1)
--- NOTE | 2022-08-30 13:48 | Pharmacy Report ---
Pharmacy Glycemic Short Note 2 - Date of Service August 30, 2022 - Glycemic Short BSG Results (Last 24 hours): 08/29/22 08/29/22 08/29/22 16:27 17:45 20:11 Glucose POC Glucose 157 H 175 H 135 H 08/29/22 08/30/22 08/30/22 23:22 03:47 05:02 Glucose 159 H POC Glucose 165 H 143 H 08/30/22 08/30/22 08/30/22 07:25 11:31 12:13 Glucose 197 H POC Glucose 161 H 153 H OUTPATIENT ANTIDIABETIC REGIMEN: * None * HbA1c = 12.4% (08/28/22) ASSESSMENT: 08/30/22 * Patient's BSGs yesterday were [phone] and overnight were 165-143 mg/dL. * Patient was transitioned off insulin infusion around lunchtime yesterday. * Patient received 60 units of SQ insulin (50 units of basal and 10 units of bolus). * Fasting today is 161 mg/dL. * Patient's regimen is basal heavy currently. Will reduce basal slightly to 45 units (10% reduction). Scale ordered for tomorrow. * Novolog weight-based stress of 3 for now. 08/29/22 * Patient remains on insulin infusion at a constant rate of 5.8 units/hr. * Patient received 30 units of Lantus yesterday. * Will give Lantus 50 units today. (weight-based stress of 3) --> most likely this will become too aggressive for patient but she is insulin deficient. * Novolog weight-based stress of 3 + overnight checks to ensure adequate coverage. BACKGROUND * 31 yo F presented to ED yesterday with low back pain and generally feeling unwell. Labs upon presentation showed an Anion-Gap Metabolic Acidosis. Question if this was Ethylene glycol induced vs DKA. Given A1c, most likely related to DKA. New diagnosis for patient so no diabetes meds prior to admission. Reports a history of PCOS but no metformin use. * Given a 2 L NS bolus in ED. Started on IV insulin drip at 8 units/hr with an initial bolus of 8 units. * Labs: * Admission: Na+ 129 (corrected = 134), K+ 4.2, CO2 8, AG 23, SCr 0.94, BSG 299, Osmolality 303, 4+ ketones in urine, VBG 7.06 * Most recent: Na+ 131 (corrected = 134), K+ 3.9, CO2 12, AG 13, SCr 0.56, BSG 212, VBG 7.21 * Initially started on D5 1/2 NS + 20 KCl at 150 mL/hr along with 150 mEq of Sodium Bicarbonate in Sterile Water at 150 mL/hr. Sodium level remained below goal so fluids switched this morning to D5 NS + 20 KCl @ 250 mL/hr. Sodium Bicarb infusion was discontinued. Remains in DKA still as we await AG to close. Did give 30 units of Lantus around 1000 today to assist when it is time to transition to subcutaneous insulin. Does remain NPO but diet will be ordered once gap is closed. * Expecting insulin to transition from IV to SC at some point this afternoon/evening. PLAN FOR INPATIENT GLYCEMIC CONTROL: * Basal insulin * Lantus 45 units SQ x 1 then 35-50 units SQ qAM based upon BSG * Bolus insulin * NovoLog per scale ACHS or Q6hrs while NPO * Goal Range: Low 110 mg/dL - High 140 mg/dL * Correction Factor: 20 mg/dL/unit * Nutritional / Prandial insulin per carb ratio of 1 unit per 6 grams CHO consumed
[2022-08-31 06:41] LABS: Anion Gap 14 (3-11); BUN Creatinine Ratio 16.2 (10-20); Blood Urea Nitrogen 6 mg/dl (6-23); Calcium 8.9 mg/dl (8.5-10.1); Carbon Dioxide 21 mmol/L (21-32); Chloride 100 mmol/L (98-107); Creatinine Clr Calc Pharmacy 220.7 ml/min; Est GFR (African American) > 150.0 ml/min; Est GFR (Non-African American) 144.4 ml/min; Glucose 135 mg/dl (70-99(Fasting)); Magnesium 1.8 mg/dl (1.7-2.4); Phosphorus 3.8 mg/dl (2.5-4.9); Potassium 3.1 mmol/L (3.5-5.1); Sodium 135 mmol/L (136-145)
[2022-08-31] MEDS ORDERED: POTASSIUM CHLORIDE CRTAB 20 MEQ TABCR PO STA ×2 (07:30→14:25)
[2022-08-31] MEDS: INSULIN ASPART PER UNIT SC SCH ×4 (07:37→21:14)
[2022-08-31] MEDS: PANTOprazole 40 MG TAB PO SCH (09:41)
[2022-08-31] MEDS: VESTURA PO SCH (09:41)
[2022-08-31] MEDS: SERTRALINE HCL 50 MG TABLET PO SCH (09:41)
[2022-08-31] MEDS: lisinopril 10 MG TAB PO SCH (09:41)
[2022-08-31] MEDS: LANTUS PER UNIT CHARGE SQ SCH (09:47)
[2022-08-31 11:58] LABS: Basophils # (auto) 0.12 K/uL (0-0.2); Basophils % (auto) 1.1 %; Eosinophils # (auto) 0.19 K/uL (0-0.50); Eosinophils % (auto) 1.7 %; Hemoglobin 15.9 g/dl (12.0-16.0); Immature Granulocytes # (auto) 0.05 K/uL (0.00-0.02); Immature Granulocytes % (auto) 0.5 %; Lymphocytes # (auto) 4.21 K/uL (1.2-3.4); Lymphocytes % (auto) 38.4 %; Mean Corpuscular Hemoglobin 30.8 pg (25.0-34.0); Mean Corpuscular Hgb Conc 36.1 g/dL (32.0-36.0); Mean Corpuscular Volume 85.1 fL (80.0-100.0); Mean Platelet Volume 10.8 fL (9.4-12.3); Monocytes % (auto) 11.9 %; Neutrophils # (auto) 5.08 K/uL (1.4-6.5); Neutrophils % (auto) 46.4 %; Platelet Count 321 K/uL (130-400); RDW Coefficient of Variation 13.2 % (11.5-14.5); RDW Standard Deviation 40.8 fL (36.4-46.3); Red Blood Count 5.17 M/uL (3.93-5.22); White Blood Count 10.95 K/ul (4.8-10.8)
[2022-08-31 12:33] LABS: Anion Gap 12 (3-11); BUN Creatinine Ratio 13.3 (10-20); Blood Urea Nitrogen 6 mg/dl (6-23); Calcium 10.1 mg/dl (8.5-10.1); Carbon Dioxide 22 mmol/L (21-32); Chloride 101 mmol/L (98-107); Creatinine Clr Calc Pharmacy 181.5 ml/min; Est GFR (African American) > 150.0 ml/min; Est GFR (Non-African American) 135.4 ml/min; Glucose 150 mg/dl (70-99(Fasting)); Potassium 3.6 mmol/L (3.5-5.1); Sodium 135 mmol/L (136-145)
--- NOTE | 2022-08-31 14:28 | Hospitalist Progress Note ---
Date of Service August 31, 2022 Assessment & Plan (1) Diabetic ketoacidosis: Plan: Glucose 299 mg/dL on admission, VBG pH 7.06, bicarb 8, anion gap 23 Mild increase in anion gap today however suspect this is just because she came off intravenous dextrose and intravenous insulin yesterday. Suspect will decrease over the next day and will repeat labs this afternoon. Lantus 35 units given this morning. Novolog: --Goal BSG Range: Low 110mg/dL, High 140mg/dL --Correction Factor: 20mg/dL/unit --Carbohydrate ratio = 6 g/unit --BSGs ACHS if eating, q6h if npo Will defer adjuvant medications on discharge due to ongoing mild anion gap and need for labs to completely return to normal prior to starting metformin Initially expected discharge time however will observe on telemetry overnight given her nonsustained ventricular tachycardia. Monitor potassium and magnesium with a.m. labs. (2) NSVT (nonsustained ventricular tachycardia): Plan: Patient with symptomatic 21 beat episode TTE Aim Mg > 2, K > 4 Consult cardiology (3) T2DM (type 2 diabetes mellitus): Plan: HbA1c 12.4 Consult personal development educator (4) Metabolic acidosis: Plan: Now resolved Mixed acidosis with both anion gap due to ketones as above and non anion gap Fomepizole loading dose given in the ER, not repeated Ethyl alcohol level less than 10 mg/dL, salicylates negative, acetaminophen negative Urine toxicology negative Ethylene glycol pending, methyl alcohol level negative (5) Leukocytosis: Plan: Suspect stress related to DKA as above. Now resolved No infective cause found on CT chest or urinalysis. Do not suspect alternative source of infection on exam. (6) Depression: Plan: Continue sertraline 50 mg p.o. every morning (7) PCOS (polycystic ovarian syndrome): Plan: Continue her usual combined oral contraceptive (8) Abnormal breast finding: Plan: 8mm mass upper inner quadrant left breast - will need follow up US as an outpatient. (9) Hypertension: Plan: Continue lisinopril 10 mg p.o. every morning as antihypertensive and renal protection in setting of diabetes. Plan VTE prophylaxis - low risk Diet - T2DM Disposition -continue on PCU, expected discharge tomorrow. Admission and Anticipated Discharge Date Admission Date: August 27, 2022 Subjective Feels she is still dehydrated. But generally feeling better over the last coupl e of days.. 21 beat episode of nonsustained ventricular tachycardia today. Patient was symptomatic with dizziness during this episode. Discussed in insulin regimens with carb counting, correction factor basal insulin. Discussed care with personal development educator. Review of Systems Review of Systems: All systems reviewed & are unremarkable except as noted in Subjective Physical Exam Constitutional: WD/WN, vitals as above Respiratory: normal respiratory effort, lungs clear to auscultation Cardiovascular: RRR, no murmur, no edema Gastrointestinal (Abdomen): normal bowel sounds, soft, nontender, no hepatosplenomegaly Psychiatric: A+Ox3, euthymic affect Results & Data Results & Data ([facility]) Vital Signs (Past 12 Hours) Vital Signs Temp Pulse Pulse Resp BP Pulse Ox O2 Del Method 08/31/22 12:00 36.8 C 114 H 14 123/84 98 Room Air 08/31/22 08:00 36.8 C 100 H 12 138/100 97 Room Air 08/31/22 08:00 119 H 08/31/22 03:36 36.8 C 91 H 15 138/81 96 Room Air PG Care Time/CCT Total # of Minutes Spent Total Time Spent with Patient: Total time spent is greater than 50% in coordination of care (as documented) at patient's floor/unit and/or counseling patient: Coding Level of Care Code 38488 Subseq Hosp Care Lvl 3 Diagnoses Diabetic ketoacidosis E11.10 NSVT (nonsustained ventricular tachycardia) I47.29 T2DM (type 2 diabetes mellitus) E11.9 Metabolic acidosis E87.20 Leukocytosis D72.829 Depression F32.9 PCOS (polycystic ovarian syndrome) E28.2 Abnormal breast finding N64.59 Hypertension I10
[2022-08-31] MEDS ORDERED: MAGNESIUM SULFATE / D5W 1 GM/100 ML BAG IV ONE (14:30)
--- NOTE | 2022-08-31 16:35 | Cardiology Consultation ---
Date of Consultation August 31, 2022 Assessment & Plan (1) NSVT (nonsustained ventricular tachycardia): (2) Sinus tachycardia: Plan 1. Ventricular tachycardia: Monomorphic. Most likely related to her metabolic derangements. This would include an acidosis and hypokalemia. Magnesium was mildly low as well. She seems like healthy individual who does not have known cardiac disease. I do not believe any of her medications are likely to cause the arrhythmia. She does not have a history of syncope or heart failure. I think we will obtain an echocardiogram in order to exclude structural heart disease. In the absence of abnormality think the current recommendation will simply be to continue treatment of her diabetic ketoacidosis monitoring her electrolytes closely. 2. Sinus tachycardia: Again likely related to her metabolic derangements. Seems to be improving. At the time of presentation she was markedly acidotic and dehydrated History of Present Illness Reason for Consultation: Ventricular tachycardia Requesting Physician: [place] Attending Physician: Almas Chavis MD History of Present Illness The patient is a 31-year-old woman without a known history of cardiac disease who was admitted to the hospital with diabetic ketoacidosis. She had previously been undiagnosed as a diabetic. She had difficulty with cognition, dyspnea on exertion and increasing thirst. During her hospitalization she was noted to have an episode of ventricular tachycardia lasting a few seconds. The patient states that during this episode she was sitting talking to the network cabler. She did notice a brief sensation of lightheadedness. There is no associated chest pain. She states she has had similar episodes over the years, perhaps 3 in the course of her life time. She to these episodes appeared similar in that she had a brief episode of dizziness without any residual symptoms. She denies ever losing consciousness with the exception of 1 traumatic incident. She generally is not aware of any palpitations. Recently she has been less active, but before the pandemic and working at home she walked regularly and not report any notable limitations associated with exercise. She did not have exertional chest pain or exertional dyspnea. Currently she has been sleeping poorly but did not describe symptoms orthopnea. Allergies Allergy/AdvReac Type Severity Reaction Status Date / Time silver AdvReac Redness of Verified 08/27/22 18:18 Skin Home Medications Medication Instructions Recorded Confirmed Type sertraline 50 mg tablet 50 mg PO QAM 12/07/19 08/27/22 History drospirenone 3 mg-ethinyl 1 tab PO QAM 08/27/22 08/27/22 History estradiol 0.02 mg tablet (Vestura (28)) blood sugar diagnostic (OneTouch #100 ea 08/31/22 Rx Verio test strips) insulin aspart U-100 100 unit/mL 1 sliding scale dose subcut 08/31/22 Rx (3 mL) subcutaneous pen (Novolog USEASDIRECTD #15 mL Flexpen U-100 Insulin aspart) insulin glargine 100 unit/mL (3 45 unit (0.45 mL) subcut DAILY #15 08/31/22 Rx mL) subcutaneous pen (Lantus mL Solostar U-100 Insulin) lancets 33 gauge (OneTouch Delica #100 ea 08/31/22 Rx Lancets) lisinopril 10 mg tablet 10 mg PO DAILY #30 tabs 08/31/22 Rx pen needle, diabetic 32 gauge x #100 ea 08/31/22 Rx 5/32" (Pen Needle) Patient History Medical History (Updated 08/31/22 @ 16:33 by Tonny Navarro MD) Chronic back pain Depression Heartburn History of abnormal cervical Pap smear Obesity PCOS (polycystic ovarian syndrome) Surgical History H/O eye surgery RIGHT > 1997 History of tooth extraction Family History Sister Pre-diabetes Social History Smoking Status: Never smoker Second Hand Exposure: No; Hx Alcohol Use: No Hx Substance Use: No Preferred Language: German Communication Ability: Effective Visual Impairment: No Limitations Network Analyst Required: No Beliefs That Will Affect Care: None Current Living Situation: Alone Current Living Situation Comment: [facility] Other Information That Helps Us Care for You: No Feels Safe at Home: Yes Safety Concerns: Feels Safe At This Time Assistive Devices: None Review of Systems Review of Systems: Per HPI Physical Exam Physical Exam: She is alert and oriented x3. Mood affect appear normal. She answered all questions appropriately. HEENT: Sclerae are anicteric. Pupils are equal and reactive to light and accommodation. Extraocular movements were intact. Neuro: Cranial nerves intact Lungs: Lungs are clear to auscultation bilaterally. There are no rales wheezes or rhonchi. She has normal respiratory effort without use of accessory muscles. There is normal pulmonary excursion. Cardiac: The rhythm was regular. Tachycardic. S1 and S2 were normal. There are no murmurs on examination. The PMI was not markedly displaced on palpation. Abdomen: The abdomen was soft and nontender. Extremities: Patient has bilateral radial pulses that are equal in intensity. There is no evidence cyanosis or clubbing. There was no evidence of significant peripheral edema bilaterally. Skin: There are no rashes noted on examination today. Results & Data ([facility]) Vital Signs (Past 12 Hours) Vital Signs Temp Pulse Pulse Resp BP Pulse Ox O2 Del Method 08/31/22 16:00 37.0 C 08/31/22 12:00 36.8 C 114 H 14 123/84 98 Room Air 08/31/22 08:00 36.8 C 100 H 12 138/100 97 Room Air 08/31/22 08:00 119 H Laboratory Results Abnormal Lab Results 08/30/22 08/31/22 08/31/22 20:11 06:08 11:45 WBC 10.95 H RBC 5.17 Hgb 15.9 Hct 44.0 MCV 85.1 MCH 30.8 MCHC 36.1 H RDW Std Deviation 40.8 RDW Coeff of Abhi 13.2 Plt Count 321 MPV 10.8 Immature Gran % (Auto) 0.5 Neut % (Auto) 46.4 Lymph % (Auto) 38.4 Roosevelt % (Auto) 11.9 Eos % (Auto) 1.7 Baso % (Auto) 1.1 Neut # (Auto) 5.08 Lymph # (Auto) 4.21 H Roosevelt # (Auto) 1.30 H Eos # (Auto) 0.19 Baso # (Auto) 0.12 Immature Gran # (Auto) 0.05 H Sodium 135 L Potassium 3.1 L Chloride 100 Carbon Dioxide 21 Anion Gap 14 H BUN 6 Creatinine 0.37 L Est Cr Clr Drug Dosing 220.7 Est GFR ( Amer) > 150.0 Est GFR (Non-Af Amer) 144.4 BUN/Creatinine Ratio 16.2 Glucose 135 H POC Glucose 160 H Calcium 8.9 Phosphorus 3.8 D Magnesium 1.8 08/31/22 08/31/22 11:45 12:16 WBC RBC Hgb Hct MCV MCH MCHC RDW Std Deviation RDW Coeff of Abhi Plt Count MPV Immature Gran % (Auto) Neut % (Auto) Lymph % (Auto) Roosevelt % (Auto) Eos % (Auto) Baso % (Auto) Neut # (Auto) Lymph # (Auto) Roosevelt # (Auto) Eos # (Auto) Baso # (Auto) Immature Gran # (Auto) Sodium 135 L Potassium 3.6 Chloride 101 Carbon Dioxide 22 Anion Gap 12 H BUN 6 Creatinine 0.45 L Est Cr Clr Drug Dosing 181.5 Est GFR ( Amer) > 150.0 Est GFR (Non-Af Amer) 135.4 BUN/Creatinine Ratio 13.3 Glucose 150 H POC Glucose 183 H Calcium 10.1 Phosphorus Magnesium ECG Additional Comments: EKG obtained the time admission revealed sinus tachycardia. PG Care Time/CCT Total # of Minutes Spent Total Time Spent with Patient: Total time spent is greater than 50% in coordination of care (as documented) at patient's floor/unit and/or counseling patient: Coding Level of Care Code 87215 Inpt Consult Level 4 Diagnoses NSVT (nonsustained ventricular tachycardia) I47.29 Sinus tachycardia R00.0
[2022-08-31 16:52] LABS: Uric Acid, Random Urine 20 mg/dL
--- NOTE | 2022-08-31 17:10 | XCELERA ---
[id number]
[2022-09-01] MEDS: LANTUS PER UNIT CHARGE SQ SCH (07:55)
[2022-09-01] MEDS: INSULIN ASPART PER UNIT SC SCH ×3 (07:55→16:52)
[2022-09-01] MEDS: lisinopril 10 MG TAB PO SCH (07:56)
[2022-09-01] MEDS: PANTOprazole 40 MG TAB PO SCH (07:56)
[2022-09-01] MEDS: SERTRALINE HCL 50 MG TABLET PO SCH (07:56)
[2022-09-01] MEDS: VESTURA PO SCH (09:04)
[2022-09-01 10:19] LABS: Alanine Aminotransferase 21 U/L (7-52); Albumin Globulin Ratio 1.2 (0.9-2); Albumin Level 3.8 gm/dl (3.4-5.0); Alkaline Phosphatase 67 U/L (34-104); Anion Gap 12 (3-11); Aspartate Aminotransferase 25 U/L (13-39); BUN Creatinine Ratio 11.9 (10-20); Bilirubin,Total 0.5 mg/dl (0.2-1.0); Blood Urea Nitrogen 5 mg/dl (6-23); Calcium 9.3 mg/dl (8.5-10.1); Carbon Dioxide 24 mmol/L (21-32); Chloride 99 mmol/L (98-107); Creatinine Clr Calc Pharmacy 194.3 ml/min; Est GFR (African American) > 150.0 ml/min; Est GFR (Non-African American) 138.5 ml/min; Globulin 3.2 gm/dl (2.5-4.0); Glucose 221 mg/dl (70-99(Fasting)); Magnesium 1.8 mg/dl (1.7-2.4); Phosphorus 4.3 mg/dl (2.5-4.9); Potassium 3.4 mmol/L (3.5-5.1); Sodium 135 mmol/L (136-145)
[2022-09-01] MEDS ORDERED: POTASSIUM CHLORIDE CRTAB 20 MEQ TABCR PO STA (10:34)
[2022-09-01] MEDS: MAGNESIUM SULFATE / D5W 1 GM/100 ML BAG IV SCH ×2 (11:08→13:00)
--- NOTE | 2022-09-01 14:02 | Pharmacy Report ---
Pharmacy Glycemic Short Note 2 - Date of Service September 01, 2022 - Glycemic Short BSG Results (Last 24 hours): 08/31/22 08/31/22 09/01/22 16:36 20:54 07:35 Glucose POC Glucose 142 H 151 H 111 H 09/01/22 09/01/22 09:33 11:21 Glucose 221 H POC Glucose 141 H OUTPATIENT ANTIDIABETIC REGIMEN: * None * HbA1c = 12.4% (08/28/22) ASSESSMENT: 09/01/22 * Patient's BSGs yesterday were [phone] mg/dL. Patient received 60 units (35 units of basal 25 units of bolus). * Fasting BSG today is 111 mg/dL. * Decrease basal to 30 units (almost 20% reduction) since BSGs continue to trend downwards. This is full weight-based stress of 2. Scale for tomorrow with additional 20% reduction available. * Continue Novolog as BSGs steady throughout the day. 08/30/22 * Patient's BSGs yesterday were [phone] and overnight were 165-143 mg/dL. * Patient was transitioned off insulin infusion around lunchtime yesterday. * Patient received 60 units of SQ insulin (50 units of basal and 10 units of bolus). * Fasting today is 161 mg/dL. * Patient's regimen is basal heavy currently. Will reduce basal slightly to 45 units (10% reduction). Scale ordered for tomorrow. * Novolog weight-based stress of 3 for now. 08/29/22 * Patient remains on insulin infusion at a constant rate of 5.8 units/hr. * Patient received 30 units of Lantus yesterday. * Will give Lantus 50 units today. (weight-based stress of 3) --> most likely this will become too aggressive for patient but she is insulin deficient. * Novolog weight-based stress of 3 + overnight checks to ensure adequate coverage. BACKGROUND * 31 yo F presented to ED yesterday with low back pain and generally feeling unwell. Labs upon presentation showed an Anion-Gap Metabolic Acidosis. Question if this was Ethylene glycol induced vs DKA. Given A1c, most likely related to DKA. New diagnosis for patient so no diabetes meds prior to admission. Reports a history of PCOS but no metformin use. * Given a 2 L NS bolus in ED. Started on IV insulin drip at 8 units/hr with an initial bolus of 8 units. * Labs: * Admission: Na+ 129 (corrected = 134), K+ 4.2, CO2 8, AG 23, SCr 0.94, BSG 299, Osmolality 303, 4+ ketones in urine, VBG 7.06 * Most recent: Na+ 131 (corrected = 134), K+ 3.9, CO2 12, AG 13, SCr 0.56, BSG 212, VBG 7.21 * Initially started on D5 1/2 NS + 20 KCl at 150 mL/hr along with 150 mEq of Sodium Bicarbonate in Sterile Water at 150 mL/hr. Sodium level remained below goal so fluids switched this morning to D5 NS + 20 KCl @ 250 mL/hr. Sodium Bicarb infusion was discontinued. Remains in DKA still as we await AG to close. Did give 30 units of Lantus around 1000 today to assist when it is time to transition to subcutaneous insulin. Does remain NPO but diet will be ordered once gap is closed. * Expecting insulin to transition from IV to SC at some point this afternoon/evening. PLAN FOR INPATIENT GLYCEMIC CONTROL: * Basal insulin * Lantus 25-35 units SQ qAM based upon BSG * Bolus insulin * NovoLog per scale ACHS or Q6hrs while NPO * Goal Range: Low 110 mg/dL - High 140 mg/dL * Correction Factor: 20 mg/dL/unit * Nutritional / Prandial insulin per carb ratio of 1 unit per 6 grams CHO consumed
--- NOTE | 2022-09-01 19:39 | Discharge Summary ---
Date of Service September 01, 2022 Admission HPI Per Admitting Provider Vanda Howard is a 31-year-old female with past medical history significant for chronic back pain, depression, heartburn, obesity, and PCOS who is presenting today due to concerns over chest pain, palpitations, shortness of breath. 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 She has having a very hard time sleeping, noting that for the past 2 weeks she is sleeping for 4-5 hours a night which is mostly interrupted sleep and relying on naps throughout the day, typically gets a 3-hour nap and every day. She is also very short of breath with minor activities such as going up the stairs, down the stairs, or bending over to place her cat's food bowl on the ground, this is what prompted her to present to the ED today. She has bilateral frontal headaches which attributes to lack of sleeping, for which she takes ibuprofen for as needed, estimates she takes 6-9 pills in a day, but not every day, estimates 20 pills of ibuprofen in a week. These are 200 mg pills. She also complains of very dry mouth and has been using lozenges for help with this, and currently this is her biggest complaint as she just cannot get enough water and is peeing more despite still having a dry mouth. other than her Zoloft, vitamin D supplement, the control pill, she is not taking any other prescribed medications and denies any [id number] pills or supplements purchased online other than the ibuprofen and lozenges. Is not taking Tylenol, denies using any alcohol, drugs, or nicotine products. She eats 2 or 3 meals a day c onsisting of pasta, sticky rice, shrimp, Turkish sauce which she has delivered by her parents. Drinks 1 to 2 L of seltzer a day, as well as water. Has not drastically reduced her food or drink intake. She does not exercise regularly, and this is not new. Her sister, who is older than she is is a prediabetic, she reports she is very thin. Her mother side of the family is fairly healthy and any medical conditions they have, she states are "diet managed ". Father's side has a history of breast cancer, brain cancer, and PCOS. She has been asked about suicidal ideation multiple times by ED provider, case management social worker, and myself and adamantly denies any ingestions or feelings of harming her self, however did report to case management she attempted to kill herself by hanging last year. She does note she has been very withdrawn from friends and not going to activities that she previously enjoyed very much. She denies wanting to hurt herself for now, but is just very very frustrated about her job situation and lack of sleep. On presentation to the ED, her heart rate has been elevated to the 120s, and is otherwise within normal limits, stable. Labs notable for pH 7.0 /. Sodium 129, bicarb 8, anion gap 23, glucose 299, serum osmolality 303. Alk phos, protein, globulin mildly elevated. WBC of 15.26 with left shift, Hgb elevated at 19.8. Urine is concentrated with protein, glucose, ketones, blood, WBCs, RBCs, hyaline casts. Salicylate, serum level negative, ethyl alcohol <10. COVID-negative. PT, INR within normal limits, APTT slightly elevated 32.9. Chest CTA done shows an 8 mm mass of upper inner quadrant of left breast, possibly with. Fatty liver noted. No acute intrathoracic abnormality or pulmonary emboli. Principal Diagnosis Diabetic ketoacidosis New onset type 2 diabetes Discharge Exam Constitutional WD/WN, vitals as above Eyes + anicteric sclerae; normal pupil size ENMT external ear and nose normal, oropharynx normal Neck trachea midline, no thyromegaly Respiratory normal respiratory effort, lungs clear to auscultation Cardiovascular RRR, no murmur, no edema Gastrointestinal (Abdomen) normal bowel sounds, soft, nontender, no hepatosplenomegaly Musculoskeletal no cyanosis or clubbing, extremities motor strength 5/5 Skin no rashes, warm and dry Neurologic moves all extremities and awake; not confused Psychiatric A+Ox3, euthymic affect Discharge Data Allergies Allergy/AdvReac Type Severity Reaction Status Date / Time silver AdvReac Redness of Verified 09/07/22 10:57 Skin Consultations 08/27/22 19:28 ED Decision to Admit Stat 08/27/22 23:32 Consult Guyline Operator Routine 08/31/22 14:25 Consult Cardiology Routine Ordered Studies 08/27/22 16:38 CT angio chest PE protocol Stat IMPRESSION: 1. No acute intrathoracic abnormality. No pulmonary emboli. 2. 8 mm mass of the upper inner quadrant left breast, possibly a lymph node. Correlation with a nonemergent follow-up breast ultrasound recommended. 3. Hepatic steatosis. Hospital Course (1) Diabetic ketoacidosis: Vanda Hoawrd is a 31 year old female admitted to [facility] from August 27 through 2021 due to chest pain, shortness of breath, polyuria and polydipsia. She was diagnosed with diabetic ketoacidosis which was treated with intravenous fluids, intravenous insulin and electrolyte replacement . Her anion gap closed and she was transitioned to subcutaneous insulin. HbA1c 12.4. On discharge, she will be started on Lantus 30 units in the morning. She was advised to consider increasing this by 2 units every few days to aim for a morning fasting glucose of less than 110 or just follow up with her primary careprovider for ongoing adjustments. If having low glucose levels < 70 or symptomatic recommend reducing the Lantus dosing by 5 units/day or calling her primary care physician for ongoing advice. NovoLog was started with initial recommendations: --Goal BSG Range: Low 110 mg/dL, High 140 mg/dL --Correction Factor: 20 mg/dL/unit --Carbohydrate ratio = 6 g/unit Due to hypertension in the setting of diabetes she was started on lisinopril. She was also incidentally noted to have an 8 mm mass on the upper inner quadrant of the left breast. Recommend follow up ultrasound to be organized by her primary care provider for this. (2) NSVT (nonsustained ventricular tachycardia): Resolved, due to electrolyte derrangement (3) T2DM (type 2 diabetes mellitus): (4) Metabolic acidosis: Ethylene glycol pending, methyl alcohol level negative (5) Leukocytosis: (6) Depression: (7) PCOS (polycystic ovarian syndrome): (8) Abnormal breast finding: (9) Hypertension: Total Time Total Time Spent Total Time Spent (In Minutes): 50 Discharge Plan Discharge Items Patient Disposition: Home - Self-Care Reason For Visit: ANION GAP METABOLIC ACIDOSIS [facility] Discharge Diagnosis: Diabetic ketoacidosis New onset type 2 diabetes Non-emergency contact: Primary Care Provider Call non-emergency contact if: you have any medication questions and your symptoms worsen Follow-up/Referrals: Norbert Farrar MD [Physician] - (Follow-up for new onset type 2 diabetes with DKA) Susan Morrow CRNP [Primary Care Provider] - (Routine hospital follow-up) Diet: Carb Consistent or DM2 Addtl Attending Provider Instructions: You were admitted to [facility] from August 27 through 2021 due to chest pain, shortness of breath, polyuria and polydipsia. You were diagnosed with diabetic ketoacidosis which was treated with intravenous fluids, intravenous insulin and electrolyte replacement. Your anion gap closed and he was transitioned to subcutaneous insulin. HbA1c 12.4. On discharge, you will be started on Lantus for long-acting insulin and NovoLog to cover carbs and correct for high glucose. Initial Lantus dosing will be 30 units in the morning. Consider increasing this by 2 units every few days to aim for a morning fasting glucose of less than 110. If you do not feel comfortable to do this just follow-up with your primary care physician for ongoing management. If you are having low glucose levels < 70 or symptomatic recommend reducing the Lantus dosing by 5 units/day or calling your primary care physician for ongoing advice. NovoLog is used to cover carbohydrates and correct for high glucose levels. Please check glucose levels 4 times a day to correct (ie. before each meal and at night). Initial recommendations: --Goal BSG Range: Low 110 mg/dL, High 140 mg/dL --Correction Factor: 20 mg/dL/unit --Carbohydrate ratio = 6 g/unit Goal use Lantus (basal insulin) for about half your insulin requirements and Novolog (short acting insulin) for the other half. Due to elevated blood pressure you were started on lisinopril which also helps with long-term renal protection and diabetes. You were incidentally noted to have an 8 mm mass on the upper inner quadrant of the left breast. Recommend following up with your primary care physician to order an ultrasound of this area for further work-up. Stand-Alone Forms: [facility] Zero Carbon Food, Smoking Cessation Medications and DC Order Prescriptions: New (DME) pen needle, diabetic [Pen Needle] 32 gauge x 5/32" needle See Rx Instructions .Route Qty: 100 0RF Rx Instructions: As directed (DME) OneTouch Verio test strips Strip See Rx Instructions .Route Qty: 100 0RF Rx Instructions: As directed (DME) lancets [OneTouch Delica Lancets] 33 gauge misc See Rx Instructions .Route Qty: 100 0RF Rx Instructions: As directed insulin aspart U-100 [Novolog Flexpen U-100 Insulin] 100 unit/mL (3 mL) insulin pen 1 sliding scale dose subcut USEASDIRECTD Qty: 15 0RF Rx Instructions: adjust dose per carbs/blood sugar level up to 50 units/day lisinopril 10 mg tablet 10 mg PO DAILY Qty: 30 0RF insulin glargine [Lantus Solostar U-100 Insulin] 100 unit/mL (3 mL) insulin pen 30 unit subcut QAM Qty: 15 0RF potassium chloride 20 mEq tablet extended release 20 meq PO DAILY Qty: 30 0RF Continued sertraline 50 mg tablet 50 mg PO QAM drospirenone-ethinyl estradiol [Vestura (28)] 3-0.02 mg tablet 1 tab PO QAM No Action metformin 500 mg tablet 500 mg PO BID 30 Days Qty: 60 2RF Rx Instructions: Take 500mg (1 tab) daily x1 week and then increase to 500mg (1 tab) twice a day Discharge Orders: Discharge Order (Routine); Ordered 09/01/22 Ordered By: Almas Peacock/Other Patient Handouts: Using a Blood Sugar Log, Resources for People with Diabetes, Insulin How To Use Where Inject, Types of Insulin Admission Data Admit Date/Time: 08/27/22 21:05 Attending Provider: Almas Chavis Admit Provider: Carl Sutherland Primary Care Provider: Susan Morrow Other Providers: Cecilia Raman ; Tonny Navarro Other Interventions: Discharge Summary Assessment (RN) Last Done: 09/01/22 17:22 Coding Level of Care Code D/C DAY MANAGEMENT >30 MINS Diagnoses Diabetic ketoacidosis E11.10 NSVT (nonsustained ventricular tachycardia) I47.29 T2DM (type 2 diabetes mellitus) E11.9 Metabolic acidosis E87.20 Leukocytosis D72.829 Depression F32.9 PCOS (polycystic ovarian syndrome) E28.2 Abnormal breast finding N64.59 Hypertension I10
== END 2022-09-01 17:40 | disposition home or self-care (01) | DRG 638 ==
LOC: ED 14:31 → SUATTDRO 21:05 → 1E 21:05 → 2S 08-31 16:33
DX: Z91.048 Other nonmedicinal substance allergy status; Z79.899 Other long term (current) drug therapy; E28.2 Polycystic ovarian syndrome; I47.29 Other ventricular tachycardia; Z83.3 Family history of diabetes mellitus; E83.39 Other disorders of phosphorus metabolism; R51.9 Headache, unspecified; R06.02 Shortness of breath; K21.9 Gastro-esophageal reflux disease without esophagitis; Z56.0 Unemployment, unspecified; R07.9 Chest pain, unspecified; K76.0 Fatty (change of) liver, not elsewhere classified; F41.9 Anxiety disorder, unspecified; Z91.51 Personal history of suicidal behavior; E11.10 Type 2 diabetes mellitus with ketoacidosis without coma; E87.1 Hypo-osmolality and hyponatremia; E86.1 Hypovolemia; E83.42 Hypomagnesemia; Z72.820 Sleep deprivation; I10 Essential (primary) hypertension; N63.22 Unspecified lump in the left breast, upper inner quadrant; F32.A Depression, unspecified; D72.829 Elevated white blood cell count, unspecified; Z79.3 Long term (current) use of hormonal contraceptives

== ENCOUNTER 2022-10-14 22:03 | Observation (INO) ==
--- NOTE | 2022-10-14 22:16 | Emergency Department Note ---
Impression & Plan Contact dermatitis, Pain and swelling of right upper extremity, Swelling of right upper extremity ED Provider Note NAME: ROCAEL MCKEON AGE: 31 SEX: F : 1990 ARRIVES VIA: Walk-In INFORMANT: Patient, ED PROVIDER(S): Rick Santiago MD Chief Complaint: Rash, arm pain HPI: Patient presents due to concern for rash and arm pain. The patient states that she initially thought that she had an associated rash from a chlorhexidine prep that was used on her right upper extremity prior to donating blood to the [facility] at the end of September. Since then patient has been applying hydrocortisone and thinks that this has worsened. The patient subsequently developed rash to the chest and abdominal area within the last week. Patient is a recently newly diagnosed type I diabetic after the patient did have an admission back in August. Patient states that she has been using her medications. Patient denies any chest pains or shortness of breath. No prior history of DVT or PE. The patient is also concerned she has had some pain to the posterior aspect of the right upper extremity with some associated drainage that is clear. Patient states that it "weeps." Patient did switch from Claritin and stop hydrocortisone. The patient states that this has improved the rash that she had to her face. Patient denies any issues with breathing. Patient states that the rash to the arm is more painful but that the other rash is more itchy. ROS: See HPI for pertinent positives and negatives. A total of 10 systems were reviewed and otherwise negative. Past medical history: See below Surgical history: See below Social history: See below Physical Exam: GENERAL: NAD, wearing a mask, non-toxic. Wearing glasses. EYE EXAM: Normal conjunctiva. PERRL, no anisocoria and EOM's grossly intact w/o pain. Oropharynx: Posterior pharynx clear with no tonsillar or uvular deviation, no sloughing of mucosa. NECK: Supple, no nuchal rigidity, no adenopathy, non-tender. No signs of meningismus. FROM of the neck with good chin to chest and neck extension. No stridor. LUNGS: Clear to auscultation. Normal chest wall mechanics. HEART: NSR, no MRG. ABDOMEN: Abdomen soft, non-tender, normo-active bowel sounds, no masses, no rebound or guarding. BACK: No CVA TTP. SKIN: Chondral rash to the right upper extremity as noted below, none confluent macular blanching rash to the chest as well as left flank area. All rashes are blanching, Nikolsky negative, no purpura or petechiae UPPER EXTREMITIES: Right greater than left upper extremity with associated blanching erythema over the lateral aspect of the arm originating from the mid upper arm to the distal forearm, nonblistering, mild pain to palpation, neurovascular intact distally sensate and well perfused LOWER EXTREMITIES: Grossly normal, no edema. NEURO EXAM: A&O x3, cranial nerves II-XII grossly intact, normal speech, moves all 4 extremities. Differential diagnoses: Allergic reaction, anaphylaxis, urticaria, Polanco- Gee syndrome, toxic epidermal necrolysis, erythema multiforme, contact dermatitis, cellulitis, as well as other pathologies. Course: Patient was seen and evaluated the bedside. Full history physical exam was performed. Imaging Studies: See Below Cardiac monitoring: An order was placed for continuous cardiac monitoring. The monitor shows a rate of 79 with sinus rhythm. MDM: Patient presents due to concern for rash. Patient did have lower completed and was given Solu-Medrol, Pepcid, and Benadryl. Patient did have inflammatory markers and procalcitonin also ordered. And has a white count of 15 with a normal hemoglobin. The patient does have elevations in ESR and CRP. Pro-Bakari is not elevated. Tryptase pending. Upon reassessment patient states that she does feel tired. I did consult with the hospitalist Dr. Izquierdo. Please refer to his note. Patient was admitted by Dr. Izquierdo. Ultrasound showed no evidence of DVT. Past Med/Surg History Medical History Chronic back pain Depression Diabetic ketoacidosis Heartburn History of abnormal cervical Pap smear Metabolic acidosis NSVT (nonsustained ventricular tachycardia) Obesity PCOS (polycystic ovarian syndrome) Surgical History H/O eye surgery RIGHT > 1997 History of tooth extraction Family History Sister Pre-diabetes Father Diabetes Uncle Diabetes Aunt Diabetes PCOS (polycystic ovarian syndrome) Denies family history of Ovarian cancer Prostate cancer Myocardial infarction Breast cancer Colorectal cancer Social History Smoking Status: Never smoker Second Hand Exposure: No; Do You Dip or Chew Tobacco: No; Hx Alcohol Use: No Hx Substance Use: No Preferred Language: Kinyarwanda Communication Ability: Effective Visual Impairment: No Limitations Hearing Ability: Normal Sanitation Tank Washer Required: No Beliefs That Will Affect Care: None marital status: Single Current Living Situation: Alone Current Living Situation Comment: [facility] current occupational status: unemployed How many Children do You have: 0 Other Information That Helps Us Care for You: No Feels Safe at Home: Yes Safety Concerns: Feels Safe At This Time Childhood Exposure to Second-Hand Smoke: No Diet Comment: keto since being discharged from hospital caffeine: Yes (rarely) during the past year weight has: decreased > 10 lbs Dental Care, Regularly: Yes Physical Activity Frequency: Daily Seatbelt Use: sometimes Sunscreen Use: Yes Assistive Devices: None Allergies Allergies Allergy/AdvReac Type Severity Reaction Status Date / Time chlorhexidine Allergy Intermediate SKIN Verified 10/14/22 23:41 [From ChloraPrep Clear] IRRITATION/RASH hydrocortisone Allergy Intermediate Hives Verified 10/14/22 23:41 isopropyl alcohol Allergy Intermediate SKIN Verified 10/14/22 23:41 [From ChloraPrep Clear] IRRITATION/RASH silver AdvReac Mild Redness of Verified 10/14/22 23:41 Skin Home Meds Home Medications Medication Instructions Recorded Confirmed sertraline 50 mg tablet 50 mg PO QAM 12/07/19 10/14/22 drospirenone 3 mg-ethinyl 1 tab PO QAM 08/27/22 10/14/22 estradiol 0.02 mg tablet (Vestura (28)) insulin glargine 100 unit/mL (3 13 unit subcut QAM 09/18/22 10/14/22 mL) subcutaneous pen (Lantus Solostar U-100 Insulin) blood sugar diagnostic (OneTouch 10/12/22 10/12/22 Verio test strips) cholecalciferol (vitamin D3) 50 50 mcg PO DAILY 10/12/22 10/14/22 mcg (2,000 unit) capsule insulin aspart U-100 100 unit/mL 2 - 3 unit subcut TID 10/12/22 10/14/22 (3 mL) subcutaneous pen (Novolog Flexpen U-100 Insulin aspart) lancets 33 gauge ([facility]ica 10/12/22 10/12/22 Lancets) omega-3 fatty acids 1,000 mg 3,000 mg PO DAILY 10/12/22 10/14/22 capsule pen needle, diabetic 32 gauge x 10/12/22 10/12/22 5/32" (Pen Needle) loratadine 10 mg tablet (Claritin) 10 mg PO DAILY 10/14/22 10/14/22 Previous Rx's Medication Instructions Recorded benzonatate 100 mg capsule 100 mg PO TID PRN cough 10 days 09/18/22 #30 caps lisinopril 10 mg tablet 10 mg PO DAILY 90 days #90 tabs 09/29/22 metformin 1,000 mg tablet 1,000 mg PO BID #180 tabs 10/12/22 cephalexin 500 mg capsule 500 mg PO BID 5 days #10 caps 10/15/22 cephalexin 500 mg capsule 500 mg PO BID 5 days #10 caps 10/15/22 famotidine 20 mg tablet (Acid 20 mg PO BID 6 days #12 tabs 10/15/22 Controller) famotidine 20 mg tablet (Pepcid) 20 mg PO BID 6 days #12 tabs 10/15/22 prednisone 10 mg tablet 10 mg PO DIRECTED #7 tabs 10/15/22 prednisone 10 mg tablet 10 mg PO DAILY #7 tabs 10/15/22 Results & Data (ED) Vital Signs Vital Signs - 24 hr 10/14/22 22:09 10/14/22 22:03 10/14/22 22:03 Temperature 36.2 C L Temperature Source Temporal Artery Scan Pulse Rate 99 H Pulse Rate [Apical] 76 Pulse Rhythm Regular Pulse Rhythm [Apical] Regular Pulse Strength Normal Pulse Strength [Apical] Normal Respiratory Rate 18 16 Respiratory Effort / Characteristics Non-Labored Respiratory Depth Normal Normal Respiratory Pattern Regular Blood Pressure 135/92 Blood Pressure [Right Arm] 133/83 Blood Pressure Mean 106 Blood Pressure Mean [Right Arm] 99 Blood Pressure Position Sitting Pulse Oximetry 94 98 Oxygen Delivery Method Room Air Room Air Room Air Sepsis Recent Fever Within 48 Hours No Sepsis New/Unexplained Change in Mental Status N/A Sepsis Action Taken by Nursing No Action Required 10/14/22 22:31 10/15/22 01:15 10/15/22 01:47 Temperature Temperature Source Pulse Rate 78 86 86 Pulse Rate [Apical] Pulse Rhythm Regular Pulse Rhythm [Apical] Pulse Strength Pulse Strength [Apical] Respiratory Rate 18 Respiratory Effort / Characteristics Respiratory Depth Respiratory Pattern Blood Pressure 110/65 105/62 Blood Pressure [Right Arm] Blood Pressure Mean 80 76 Blood Pressure Mean [Right Arm] Blood Pressure Position Pulse Oximetry 98 Oxygen Delivery Method Room Air Sepsis Recent Fever Within 48 Hours Sepsis New/Unexplained Change in Mental Status Sepsis Action Taken by [facility] Medications Current Medication List: was personally reviewed by me Laboratory Data Attestation: I reviewed the patient's lab results. Result diagrams: 10/15/22 07:37 10/15/22 07:37 Lab Results 10/14/22 10/14/22 10/14/22 Range/Units Unknown Unknown Unknown WBC 15.72 H (4.8-10.8) K/ul RBC 5.00 (3.93-5.22) M/uL Hgb 15.4 (12.0-16.0) g/dl Hct 45.0 H (34.1-44.9) % MCV 90.0 (80.0-100.0) fL MCH 30.8 (25.0-34.0) pg MCHC 34.2 (32.0-36.0) g/dL RDW Std Deviation 44.3 (36.4-46.3) fL RDW Coeff of Abhi 13.5 (11.5-14.5) % Plt Count 409 H (130-400) K/uL MPV 11.3 (9.4-12.3) fL Immature Gran % (Auto) 1.0 % Neut % (Auto) 53.4 % Lymph % (Auto) 26.4 % Barrow % (Auto) 7.9 % Eos % (Auto) 10.9 % Baso % (Auto) 0.4 % Neut # (Auto) 8.40 H (1.4-6.5) K/uL Lymph # (Auto) 4.15 H (1.2-3.4) K/uL Barrow # (Auto) 1.24 H (0.24-0.82) K/uL Eos # (Auto) 1.71 H (0-0.50) K/uL Baso # (Auto) 0.07 (0-0.2) K/uL Immature Gran # (Auto) 0.15 H (0.00-0.02) K/uL ESR 38 H (0-20) mm/hr Sodium 135 L (136-145) mmol/L Potassium 3.9 (3.5-5.1) mmol/L Chloride 102 (98-107) mmol/L Carbon Dioxide 23 (21-32) mmol/L Anion Gap 10 (3-11) BUN 15 (6-23) mg/dl Creatinine 0.58 L (0.6-1.2) mg/dl Est Cr Clr Drug Dosing 138.5 ml/min Est GFR ( Amer) 144.4 ml/min Est GFR (Non-Af Amer) 124.6 ml/min BUN/Creatinine Ratio 25.9 H (10-20) Glucose 93 (70-99(Fasting)) mg/dl Calcium 9.0 (8.5-10.1) mg/dl Total Bilirubin 0.3 (0.2-1.0) mg/dl AST 20 (13-39) U/L ALT 24 (7-52) U/L Alkaline Phosphatase 80 (34-104) U/L C-Reactive Protein 3.15 H (0-0.5) mg/dl Total Protein 7.1 (6.0-8.3) gm/dl Albumin 3.8 (3.4-5.0) gm/dl Globulin 3.3 (2.5-4.0) gm/dl Albumin/Globulin Ratio 1.2 (0.9-2) Procalcitonin (0-0.5) ng/ml SARS-CoV-2, RNA, NAAT (NEGATIVE) 10/14/22 10/15/22 Range/Units Unknown 02:18 WBC (4.8-10.8) K/ul RBC (3.93-5.22) M/uL Hgb (12.0-16.0) g/dl Hct (34.1-44.9) % MCV (80.0-100.0) fL MCH (25.0-34.0) pg MCHC (32.0-36.0) g/dL RDW Std Deviation (36.4-46.3) fL RDW Coeff of Abhi (11.5-14.5) % Plt Count (130-400) K/uL MPV (9.4-12.3) fL Immature Gran % (Auto) % Neut % (Auto) % Lymph % (Auto) % Barrow % (Auto) % Eos % (Auto) % Baso % (Auto) % Neut # (Auto) (1.4-6.5) K/uL Lymph # (Auto) (1.2-3.4) K/uL Barrow # (Auto) (0.24-0.82) K/uL Eos # (Auto) (0-0.50) K/uL Baso # (Auto) (0-0.2) K/uL Immature Gran # (Auto) (0.00-0.02) K/uL ESR (0-20) mm/hr Sodium (136-145) mmol/L Potassium (3.5-5.1) mmol/L Chloride (98-107) mmol/L Carbon Dioxide (21-32) mmol/L Anion Gap (3-11) BUN (6-23) mg/dl Creatinine (0.6-1.2) mg/dl Est Cr Clr Drug Dosing ml/min Est GFR ( Amer) ml/min Est GFR (Non-Af Amer) ml/min BUN/Creatinine Ratio (10-20) Glucose (70-99(Fasting)) mg/dl Calcium (8.5-10.1) mg/dl Total Bilirubin (0.2-1.0) mg/dl AST (13-39) U/L ALT (7-52) U/L Alkaline Phosphatase (34-104) U/L C-Reactive Protein (0-0.5) mg/dl Total Protein (6.0-8.3) gm/dl Albumin (3.4-5.0) gm/dl Globulin (2.5-4.0) gm/dl Albumin/Globulin Ratio (0.9-2) Procalcitonin 0.09 (0-0.5) ng/ml SARS-CoV-2, RNA, NAAT NEGATIVE (NEGATIVE) Administered Medications Discontinued Medications Acetaminophen (Acetaminophen 325 Mg Tab) 650 mg PO Q4H PRN PRN Reason: pain/fever Stop: 11/14/22 04:04 Last Admin: 10/15/22 08:03 Dose: 650 mg Documented By: [facility] Diphenhydramine HCl (Diphenhydramine 50 Mg/Ml Vial) 50 mg IV NOW STA Stop: 10/14/22 22:32 Last Admin: 10/14/22 22:51 Dose: 50 mg Documented By: MARLEN Diphenhydramine HCl (Diphenhydramine 50 Mg/Ml Vial) 25 mg IV Q6 YESSY Stop: 11/14/22 04:44 Last Admin: 10/15/22 12:39 Dose: 25 mg Documented By: Admin: 10/15/22 04:51 Dose: 25 mg Documented By: IZAIAH Enoxaparin Sodium (Enoxaparin Inj 40 Mg/0.4 Ml Syr) 40 mg SQ Q24H YESSY Stop: 11/14/22 07:59 Last Admin: 10/15/22 08:08 Dose: 40 mg Documented By: ODILON Sodium Chloride (Nss 1000ml) 1,000 mls @ 999 mls/hr IV .Q1H1M YESSY Stop: 10/14/22 23:45 Last Infusion: 10/14/22 23:29 Dose: 0 mls/hr Documented By: Admin: 10/14/22 22:52 Dose: 999 mls/hr Documented By: MARLEN Ceftriaxone Sodium (Rocephin) 2,000 mg in 70 mls @ 140 mls/hr IV NOW STA Stop: 10/14/22 23:02 Last Infusion: 10/14/22 23:29 Dose: 0 mls/hr Documented By: Admin: 10/14/22 22:51 Dose: 140 mls/hr Documented By: MARLEN Famotidine (Pepcid 20mg Iv Push) 20 mg in 5 mls @ 2.5 mls/min IV NOW STA Stop: 10/14/22 22:32 Last Admin: 10/14/22 22:51 Dose: 2.5 mls/min Documented By: MARLEN Famotidine 20 mg/ Syringe 5 mls @ 2.5 mls/min IV BID YESSY Stop: 11/14/22 08:59 Last Admin: 10/15/22 08:09 Dose: 2.5 mls/min Documented By: ODILON Insulin Aspart (Insulin Aspart Per Unit) 0 units SC ACHS YESSY Stop: 11/14/22 07:29 Last Admin: 10/15/22 13:06 Dose: 4 units Documented By: ODILON Co-signed By: BELINDA Admin: 10/15/22 09:34 Dose: 7 units Documented By: ODILON Co-signed By: BELINDA Insulin Glargine (Lantus Per Unit Charge) 13 units SQ QAM [facility] Stop: 11/14/22 08:59 Last Admin: 10/15/22 09:34 Dose: 13 units Documented By: ODILON Co-signed By: BELINDA Ketorolac Tromethamine (Ketorolac Tromethamine 15 Mg/Ml Vial) 10 mg IV NOW ONE Stop: 10/15/22 01:20 Last Admin: 10/15/22 01:45 Dose: 10 mg Documented By: MARLEN Loratadine (Loratadine 10 Mg Tab) 10 mg PO DAILY YESSY Stop: 11/14/22 08:59 Last Admin: 10/15/22 08:09 Dose: 10 mg Documented By: ODILON Methylprednisolone (Methylprednisolone 125 Mg/2 Ml Vial) 40 mg IV NOW STA Stop: 10/14/22 22:32 Last Admin: 10/14/22 22:51 Dose: 40 mg Documented By: MARLEN Prednisone (Prednisone 20 Mg Tab) 20 mg PO DAILY [facility] Stop: 11/14/22 08:59 Last Admin: 10/15/22 08:09 Dose: 20 mg Documented By: ODILON Sertraline HCl (Sertraline Hcl 50 Mg Tablet) 50 mg PO QAM [facility] Stop: 11/14/22 08:59 Last Admin: 10/15/22 08:09 Dose: 50 mg Documented By: ODILON Vitamin D (Cholecalciferol 1,000 Units 25 Mcg Tab) 2,000 units PO DAILY [facility] Stop: 11/14/22 08:59 Last Admin: 10/15/22 08:08 Dose: 2,000 units Documented By: ODILON Imaging Data Radiologist's Impression: Venous Doppler Study 10/15/22 00:41 US venous doppler UE RT HISTORY: 31 years-old Female eval for dvt acute pain and swelling of the right upper extremity COMPARISON: None TECHNIQUE: Multiple real-time sonographic images of the right upper extremity deep venous structures were obtained assessing grayscale appearance, color and spectral flow FINDINGS: Subcutaneous edema. Normal flow and compressibility. IMPRESSION: No DVT. ACT 112: Negative or not required by law. The above report was generated using voice recognition software. It may contain grammatical, syntax or spelling errors. Electronically signed by: Armando Ramirez M.D. 10/15/2022 6:52 AM Discharge Plan Visit Data Chief Complaint: Allergic Reaction Stated Complaint: RIGHT ARM SWELLING, RASH ED Provider: Rick Santiago Discharge Problem: Contact dermatitis, Pain and swelling of right upper extremity, Swelling of right upper extremity Patient Disposition: Admitted As Inpatient Condition: Good Discharge Instructions Interventions: ED Discharge Assessment Last Done: 10/15/22 03:39
[2022-10-14] MEDS ORDERED: diphenhydrAMINE 50 MG/ML VIAL IV STA (22:31)
[2022-10-14] MEDS ORDERED: methylPREDNISolone 125 MG/2 ML VIAL IV STA (22:31)
[2022-10-14] MEDS ORDERED: FAMOTIDINE 20MG IV PUSH 20 MG/5 ML SYR IV STA (22:31)
[2022-10-14] MEDS ORDERED: cefTRIAXone SODIUM 2,000 MG/70 ML BAG IV STA (22:33)
[2022-10-14] MEDS ORDERED: SODIUM CHLORIDE 0.9% 1000ML 1,000 ML IV SCH (22:45)
[2022-10-14 23:20] LABS: Basophils # (auto) 0.07 K/uL (0-0.2); Basophils % (auto) 0.4 %; Eosinophils # (auto) 1.71 K/uL (0-0.50); Eosinophils % (auto) 10.9 %; Hemoglobin 15.4 g/dl (12.0-16.0); Immature Granulocytes # (auto) 0.15 K/uL (0.00-0.02); Lymphocytes # (auto) 4.15 K/uL (1.2-3.4); Lymphocytes % (auto) 26.4 %; Mean Corpuscular Hemoglobin 30.8 pg (25.0-34.0); Mean Corpuscular Hgb Conc 34.2 g/dL (32.0-36.0); Mean Platelet Volume 11.3 fL (9.4-12.3); Monocytes # (auto) 1.24 K/uL (0.24-0.82); Monocytes % (auto) 7.9 %; Neutrophils % (auto) 53.4 %; Platelet Count 409 K/uL (130-400); RDW Coefficient of Variation 13.5 % (11.5-14.5); RDW Standard Deviation 44.3 fL (36.4-46.3); White Blood Count 15.72 K/ul (4.8-10.8)
[2022-10-14 23:47] LABS: Albumin Globulin Ratio 1.2 (0.9-2); Albumin Level 3.8 gm/dl (3.4-5.0); BUN Creatinine Ratio 25.9 (10-20); Bilirubin,Total 0.3 mg/dl (0.2-1.0); C Reactive Protein 3.15 mg/dl (0-0.5); Creatinine Clr Calc Pharmacy 138.5 ml/min; Est GFR (African American) 144.4 ml/min; Est GFR (Non-African American) 124.6 ml/min; Globulin 3.3 gm/dl (2.5-4.0); Potassium 3.9 mmol/L (3.5-5.1); Total Protein 7.1 gm/dl (6.0-8.3)
--- NOTE | 2022-10-15 01:17 | History & Physical Report ---
Date of Service October 15, 2022 Assessment & Plan (1) Rash: Plan: Patient has a rash which looks like a contact dermatitis. She is bothered by skin tightening and discomfort. Without much significant subjective improvement after treatment. Significant swelling makes me be concerned for a upper extremity DVT which were pending a Doppler at the time of admission. Patient was instructed not to put anything on this rash at all and eventually she will need referral to dermatology (2) T2DM (type 2 diabetes mellitus): Plan: Patient be on basal bolus insulin holding the semaglutide and metformin (3) Hypertension: Plan: Holding lisinopril at this time (4) Depression: Plan: Continue sertraline History of Present Illness Primary Care Provider: Mat Llanes DO 31-year-old recently diagnosed delayed onset diabetic using insulin semaglutide and metformin, who presents with a progressive skin rash on her right arm with increased swelling and discomfort. Patient states that the rash began at her right antecubital area in September when she donated blood. She felt that she might have been having a reaction to ChloraPrep. Subsequently she began using h ydrocortisone cream and now she has a diffuse papular rash that blanches on the dorsal aspect of her right upper arm down to the forearm sparing the initial antecubitus site but significant soft tissue swelling to the tricep area without any lymphadenopathy in the axilla. She also has a similar patch of his rash on her left abdomen which would look to be in a dermatomal distribution however the similarities of rash make it unlikely that this is shingles and to opposite sides of the body. This likely could be a topical contact dermatitis from what ever is in the cream that she used. She presents primarily tonight because of the discomfort. The emergency room physician has given her methylprednisolone, famotidine, and diphenhydramine IV and given a dose of ceftriaxone although I doubt this is cellulitic Due to the significance of the swelling there is a pending Doppler of her right upper extremity Allergies Allergy/AdvReac Type Severity Reaction Status Date / Time chlorhexidine Allergy Intermediate SKIN Verified 10/14/22 23:41 [From ChloraPrep Clear] IRRITATION/RASH hydrocortisone Allergy Intermediate Hives Verified 10/14/22 23:41 isopropyl alcohol Allergy Intermediate SKIN Verified 10/14/22 23:41 [From ChloraPrep Clear] IRRITATION/RASH silver AdvReac Mild Redness of Verified 10/14/22 23:41 Skin Home Medications Medication Instructions Recorded Confirmed Type sertraline 50 mg tablet 50 mg PO QAM 12/07/19 10/14/22 History drospirenone 3 mg-ethinyl 1 tab PO QAM 08/27/22 10/14/22 History estradiol 0.02 mg tablet (Vestura (28)) benzonatate 100 mg capsule 100 mg PO TID PRN cough 10 days 09/18/22 10/14/22 Rx #30 caps insulin glargine 100 unit/mL (3 13 unit subcut QAM 09/18/22 10/14/22 History mL) subcutaneous pen (Lantus Solostar U-100 Insulin) lisinopril 10 mg tablet 10 mg PO DAILY 90 days #90 tabs 09/29/22 10/14/22 [facility] 10[facility]12/[facility] 10/12/22 History Verio test strips) cholecalciferol (vitamin D3) 50 50 mcg PO DAILY 10/12/22 10/14/22 History mcg (2,000 unit) capsule insulin aspart U-100 100 unit/mL 2 - 3 unit subcut TID 10/12/22 10/14/22 History (3 mL) subcutaneous pen (Novolog Flexpen U-100 Insulin aspart) lancets 33 gauge ([facility] 10/12/22 10/12/22 History Lancets) metformin 1,000 mg tablet 1,000 mg PO BID #180 tabs 10/12/22 10/14/22 Rx omega-3 fatty acids 1,000 mg 3,000 mg PO DAILY 10/12/22 10/14/22 History capsule pen needle, diabetic 32 gauge x 10/12/22 10/12/22 History 5/32" (Pen Needle) loratadine 10 mg tablet (Claritin) 10 mg PO DAILY 10/14/22 10/14/22 History Past Med/Surg History Medical History (Updated 10/15/22 @ 01:09 by Rick Santiago MD) Chronic back pain Depression Diabetic ketoacidosis Heartburn History of abnormal cervical Pap smear Metabolic acidosis NSVT (nonsustained ventricular tachycardia) Obesity PCOS (polycystic ovarian syndrome) Surgical History H/O eye surgery RIGHT > 1997 History of tooth extraction Family History Sister Pre-diabetes Father Diabetes Uncle Diabetes Aunt Diabetes PCOS (polycystic ovarian syndrome) Denies family history of Ovarian cancer Prostate cancer Myocardial infarction Breast cancer Colorectal cancer Social History Smoking Status: Never smoker Second Hand Exposure: No; Hx Alcohol Use: No Hx Substance Use: No Preferred Language: Citizen Of [place] Communication Ability: Effective Visual Impairment: No Limitations Hearing Ability: Normal Mannequin Decorator Required: No Beliefs That Will Affect Care: None marital status: Single Current Living Situation: Alone Current Living Situation Comment: [facility] current occupational status: unemployed How many Children do You have: 0 Feels Safe at Home: Yes Childhood Exposure to Second-Hand Smoke: No Diet Comment: keto since being discharged from hospital caffeine: Yes (rarely) during the past year weight has: decreased > 10 lbs Dental Care, Regularly: Yes Physical Activity Frequency: Daily Seatbelt Use: sometimes Sunscreen Use: Yes Assistive Devices: None Review of Systems Review of Systems: Mild distress and fatigue no headache, no visual changes no speech or swallowing issues no chest pain, pressure or palpitations no shortness of breath, cough or wheezes no abdominal pain, nausea or vomiting, diarrhea or constipation no dysuria, hematuria or frequency no focal joint pain or swelling no back pain, CVA tenderness or radicular pain Significant rash and swelling to the right upper extremity and on the left abdominal wall no focal signs of weakness or numbness or altered sensation no complaints of anxiety or depression.. Physical Exam Physical Exam: The patient appeared well nourished and normally developed. Vital signs as documented. Head exam is normocephalic atraumatic No pharyngeal issues or stridor Neck is without JVD, thyromegaly, or carotid bruits. Lungs are clear to auscultation, no focal loss of breath sounds absolutely no wheezes Cardiac exam, Rhythm is regular.. No murmurs, rubs or gallops. Abdominal exam reveals normal bowel sounds, soft non tender, no masses Extremities are nonedematous and both pedal pulses are present Neurologic exam is alert and oriented, no focal loss of strength or sensation Skin is with maculopapular blanching rash to the right upper extremity and left abdomen Psychologically is without concerns for anxiety or depression.. Results & Data Results & Data ([facility]) Vital Signs (Past 12 Hours) Vital Signs Temp Pulse Pulse Resp BP BP Pulse Ox 10/14/22 22:31 78 18 98 10/14/22 22:03 76 16 133/83 98 10/14/22 22:03 10/14/22 22:09 97.2 F L 99 H 18 135/92 94 O2 Del Method 10/14/22 22:31 Room Air 10/14/22 22:03 Room Air 10/14/22 22:03 Room Air 10/14/22 22:09 Room Air PG Care Time/CCT Total # of Minutes Spent Total Time Spent with Patient: Total time spent is greater than 50% in coordination of care (as documented) at patient's floor/unit and/or counseling patient: Coding Level of Care Code INT OBSERVATION CARE 50M LVL 2 Diagnoses Rash R21 T2DM (type 2 diabetes mellitus) E11.9 Hypertension I10 Depression F32.9
[2022-10-15] MEDS ORDERED: KETOROLAC TROMETHAMINE 15 MG/ML VIAL IV ONE (01:19)
[2022-10-15] MEDS ORDERED: GLUCAGON FOR INJ 1 MG VIAL SQ PRN (04:05)
[2022-10-15] MEDS ORDERED: GLUCOSE 10 TAB/TUBE PO PRN (04:05)
[2022-10-15] MEDS ORDERED: ALUMINUM/MAGNESIUM SUSP 30 ML UDC PO PRN (04:05)
[2022-10-15] MEDS ORDERED: ONDANSETRON INJ 2 MG/ML 2 ML VIAL IV PRN (04:05)
[2022-10-15] MEDS ORDERED: ACETAMINOPHEN 325 MG TAB PO PRN (04:05)
[2022-10-15] MEDS ORDERED: MoRPHine SULFATE 2 MG/ML CARP IV PRN (04:05)
[2022-10-15] MEDS ORDERED: GLUCOSE 40% GEL 15 GM TUBE PO PRN (04:05)
[2022-10-15] MEDS ORDERED: DEXTROSE 50% 50 ML SYRINGE IV PRN (04:05)
[2022-10-15] MEDS ORDERED: CARBOHYDRATES FOR HYPOGLYCEMIA PO PRN (04:05)
[2022-10-15] MEDS: diphenhydrAMINE 50 MG/ML VIAL IV SCH ×2 (04:51→12:39)
--- NOTE | 2022-10-15 06:54 | Ultrasound Report ---
US venous doppler UE RT HISTORY: 31 years-old Female eval for dvt acute pain and swelling of the right upper extremity COMPARISON: None TECHNIQUE: Multiple real-time sonographic images of the right upper extremity deep venous structures were obtained assessing grayscale appearance, color and spectral flow FINDINGS: Subcutaneous edema. Normal flow and compressibility. IMPRESSION: No DVT. ACT 112: Negative or not required by law. The above report was generated using voice recognition software. It may contain grammatical, syntax o r spelling errors. Electronically signed by: Armando Ramirez M.D. 10/15/2022 6:52 AM
[2022-10-15] MEDS ORDERED: ENOXAPARIN INJ 40 MG/0.4 ML SYR SQ SCH (08:00)
--- NOTE | 2022-10-15 08:27 | Hospitalist Progress Note ---
Date of Service October 15, 2022 Assessment & Plan (1) Rash: Plan: Patient has a rash which looks like a contact dermatitis. She is bothered by skin tightening and discomfort. Without much significant subjective improvement after treatment. Significant swelling makes me be concerned for a upper extremity DVT which were pending a Doppler at the time of admission. Patient was instructed not to put anything on this rash at all and eventually she will need referral to dermatology (2) T2DM (type 2 diabetes mellitus): Plan: Patient be on basal bolus insulin holding the semaglutide and metformin (3) Hypertension: Plan: Holding lisinopril at this time (4) Depression: Plan: Continue sertraline Admission and Anticipated Discharge Date Admission Date: October 15, 2022 Subjective Patient is awake sitting up in bed. She states she thinks her skin reaction/rash has improved some since yesterday presenting to the ER. She denies any SOB, chest pain, dyspnea, dysphagia, nausea, vomiting or abdominal pain. she tells me that she initially got the skin reaction from a ChloraPrep used on her right arm when she donated blood through the [place]. She states that the irritation/rash from the skin prep was not improving and she decided to try hydrocortisone cream and that is when the rash got significantly worse. Review of Systems Constitutional: no fever, no chills and no fatigue Eyes: no blind spots, no diplopia and no eye pain Ear, Nose, Mouth, Throat: no nasal congestion, no post nasal drip and no nasal obstruction Respiratory: no cough, no chest congestion and no dyspnea Cardiovascular: no chest pain, no dyspnea, no palpitations and no syncope Gastrointestinal: no abdominal pain, no nausea and no vomiting Genitourinary: no dysuria, no difficulty urinating, no urinary frequency and no urinary hesitancy Integumentary: + rash, + erythema, + urticaria and + skin swelling; no bleeding lesions, no wounds and no yellowing of the skin Physical Exam Constitutional: WD/WN, vitals as above Results & Data Results & Data ([facility]) Vital Signs (Past 12 Hours) Vital Signs Temp Pulse Pulse Pulse Resp BP BP 10/15/22 08:01 37.0 C 112 H 18 97/60 L 10/15/22 04:18 10/15/22 04:18 36.8 C 77 20 106/70 10/15/22 04:16 36.8 C 77 20 106/70 10/15/22 01:47 86 105/62 10/15/22 01:15 86 110/65 10/14/22 22:31 78 18 10/14/22 22:03 76 16 133/83 10/14/22 22:03 10/14/22 22:09 36.2 C L 99 H 18 135/92 Pulse Ox O2 Del Method 10/15/22 08:01 97 Room Air 10/15/22 04:18 Room Air 10/15/22 04:18 94 Room Air 10/15/22 04:16 94 Room Air 10/15/22 01:47 10/15/22 01:15 10/14/22 22:31 98 Room Air 10/14/22 22:03 98 Room Air 10/14/22 22:03 Room Air 10/14/22 22:09 94 Room Air PG Care Time/CCT Total # of Minutes Spent Total Time Spent with Patient: Total time spent is greater than 50% in coordination of care (as documented) at patient's floor/unit and/or counseling patient: Coding Diagnoses Rash R21 T2DM (type 2 diabetes mellitus) E11.9 Hypertension I10 Depression F32.9
[2022-10-15 08:34] LABS: Hematocrit (blood only) 44.3 % (34.1-44.9); Hemoglobin 14.5 g/dl (12.0-16.0); Mean Corpuscular Hemoglobin 30.3 pg (25.0-34.0); Mean Corpuscular Hgb Conc 32.7 g/dL (32.0-36.0); Mean Corpuscular Volume 92.7 fL (80.0-100.0); Mean Platelet Volume 11.2 fL (9.4-12.3); Platelet Count 416 K/uL (130-400); RDW Coefficient of Variation 13.5 % (11.5-14.5); RDW Standard Deviation 45.9 fL (36.4-46.3); Red Blood Count 4.78 M/uL (3.93-5.22); White Blood Count 12.41 K/ul (4.8-10.8)
[2022-10-15] MEDS ORDERED: SERTRALINE HCL 50 MG TABLET PO SCH (09:00)
[2022-10-15] MEDS ORDERED: FAMOTIDINE 20 MG in SYRINGE 3 ML IV SCH (09:00)
[2022-10-15] MEDS ORDERED: predniSONE 20 MG TAB PO SCH (09:00)
[2022-10-15] MEDS ORDERED: CHOLECALCIFEROL 1,000 UNITS 25 MCG TAB PO SCH (09:00)
[2022-10-15] MEDS ORDERED: LORATADINE 10 MG TAB PO SCH (09:00)
[2022-10-15] MEDS ORDERED: LANTUS PER UNIT CHARGE SQ SCH (09:00)
[2022-10-15 09:04] LABS: BUN Creatinine Ratio 23.1 (10-20); Calcium 8.8 mg/dl (8.5-10.1); Creatinine Clr Calc Pharmacy 155.7 ml/min; Est GFR (African American) 149.6 ml/min; Est GFR (Non-African American) 129.1 ml/min; Potassium 4.1 mmol/L (3.5-5.1)
[2022-10-15 09:05] LABS: Estimated Average Glucose 163 mg/dl; Hemoglobin A1C 7.3 % (4.5-5.6)
[2022-10-15] MEDS: INSULIN ASPART PER UNIT SC SCH ×2 (09:34→13:06)
[2022-10-15 12:35] LABS: Basophils # (auto) 0.05 K/uL (0-0.2); Basophils % (auto) 0.4 %; Eosinophils # (auto) 0.16 K/uL (0-0.50); Eosinophils % (auto) 1.3 %; Immature Granulocytes # (auto) 0.09 K/uL (0.00-0.02); Immature Granulocytes % (auto) 0.7 %; Lymphocytes # (auto) 1.26 K/uL (1.2-3.4); Monocytes # (auto) 0.19 K/uL (0.24-0.82); Monocytes % (auto) 1.5 %; Neutrophils # (auto) 10.91 K/uL (1.4-6.5); Neutrophils % (auto) 86.1 %
--- NOTE | 2022-10-15 14:39 | Discharge Summary ---
Date of Service October 15, 2022 Admission HPI Per Admitting Provider 31-year-old recently diagnosed delayed onset diabetic using insulin semaglutide and metformin, who presents with a progressive skin rash on her right arm with increased swelling and discomfort. Patient states that the rash began at her right antecubital area in September when she donated blood. She felt that she might have been having a reaction to ChloraPrep. Subsequently she began using hydrocortisone cream and now she has a diffuse papular rash that blanches on the dorsal aspect of her right upper arm down to the forearm sparing the initial antecubitus site but significant soft tissue swelling to the tricep area without any lymphadenopathy in the axilla. She also has a similar patch of his rash on her left abdomen which would look to be in a dermatomal distribution however the similarities of rash make it unlikely that this is shingles and to opposite sides of the body. This likely could be a topical contact dermatitis from what ever is in the cream that she used. She presents primarily tonight because of the discomfort. The emergency room physician has given her methylprednisolone, famotidine, and diphenhydramine IV and given a dose of ceftriaxone although I doubt this is cellulitic Due to the significance of the swelling there is a pending Doppler of her right upper extremity Principal Diagnosis contact dermatitis Discharge Exam Constitutional WD/WN, vitals as above Patient sitting up in bed in NAD Eyes PERRL, conjunctivae normal, anicteric sclerae ENMT external ear and nose normal, oropharynx normal Neck trachea midline, no thyromegaly Respiratory normal respiratory effort, lungs clear to auscultation Cardiovascular RRR, no murmur, no edema Gastrointestinal (Abdomen) normal bowel sounds, soft, nontender, no hepatosplenomegaly Skin Macular blanching urticarial rash right arm, few urticaria on upper anterior chest, one area also left lower lateral side and few on face. No skin lesions on legs or back with the exception of one small area left knee. Swollen right upper arm. Psychiatric A+Ox3, euthymic affect Discharge Data Allergies Allergy/AdvReac Type Severity Reaction Status Date / Time chlorhexidine Allergy Intermediate SKIN Verified 10/14/22 23:41 [From ChloraPrep Clear] IRRITATION/RASH hydrocortisone Allergy Intermediate Hives Verified 10/14/22 23:41 isopropyl alcohol Allergy Intermediate SKIN Verified 10/14/22 23:41 [From ChloraPrep Clear] IRRITATION/RASH silver AdvReac Mild Redness of Verified 10/14/22 23:41 Skin Consultations 10/15/22 00:31 Consult Hospitalist Stat 10/15/22 01:18 ED Decision to Admit Stat 10/15/22 02:02 ED Decision to Admit Stat Ordered Studies 10/15/22 00:41 US venous doppler UE RT Urgent Hospital Course (1) Rash: Patient has a rash which looks like a contact dermatitis. She is bothered by skin tightening and discomfort. Due to the significant swelling a venous doppler study was obtained upon admission that was negative for any DVTs. Patiet states the prednisone has significantly helped her rash. Patient was instructed that she will need to follow up with her PCP either Wednesday or Wednesday and may need a referral to a almond blancher if the rash has not resolved. (2) T2DM (type 2 diabetes mellitus): Patient was placed on a sliding scale insulin while in the hospital. She will be discharged on her regular home medications. Patient tells me that she had the rash prior to starting the Ozempic. (3) Hypertension: Patient to restart her home antihypertensive medications (4) Depression: Continue sertraline Plan Discussed cooler baths and showers, could try an oatmeal bath to help soothe the skin. She will continue the claritan one in the AM and benedryl one at night. She also can continue the Pepcid one pill BID for the next week. She is to follow up with her PCP early next week, either Wednesday or Wednesday. She is aware there is an antibiotic rx called to the pharmacy and she is only to take this medication if her skin rash should worsen over the weekend. She is aware if any fevers, or increase in pain or swelling to return to the ER. Also will do a short prednisone taper and will take 20mg Wednesday and Wednesday and then 10mg daily for Wednesday through Wednesday. Total Time Total Time Spent Total Time Spent (In Minutes): 30 Discharge Plan Discharge Items Patient Disposition: Home - Self-Care Reason For Visit: ARM PAIN, DERMATITIS, DIABETES Discharge Diagnosis: contact dermatitis Condition on Discharge: Good Activity: Resume your previous activity Bathing Comment: cooler bath and showers Exercise/Sports: Wait until after follow-up appointment Driving/Machine Use: Resume 1 day after discharge Non-emergency contact: Primary Care Provider Call non-emergency contact if: you have any medication questions, your symptoms worsen and your temperature is above 101 Follow-up/Referrals: Mat Llanes DO [Primary Care Provider] - Diet: Carb Consistent or DM2 Addtl Attending Provider Instructions: You were admitted with contact dermatitis and arm pain. You had an Ultrasound doppler test of your right arm to rule out a blood clot. Your ultrasound of your arm was normal with no blood clots. You were treated with prednisone and antihistamines as well as Pepcid. You were given one dose of an antibiotic in the ER. I do not feel that you have any source of evidence of infection or a need for an antibiotic. You need to continue the antihistamine (claritan in the morning and benedryl one at night along with pepcid one pill 2 times per day. Also will need to continue the prednisone 20mg for 2 days then 10mg for 3 days. You should follow up with your Primary Care Physician early next week. There will be an antibiotic called to the pharmacy. If your rash should worsen over the weekend, get the antibiotic filled. Otherwise do not get it filled unless your rash should worsen. Regardless though I would like for you to see your physician Wednesday or Wednesday of next week. If you should have any fevers or worsenign in symptoms to call your primary care doctor or present back to the nearest ER. We discussed that the prednisone may increase your blood sugars. We also discussed cooler baths and showers and could also try an oatmeal bath to soother your skin. Resume and continue all your previous home medications. Pending Studies at Discharge: No Stand-Alone Forms: My [facility] Medications and DC Order Prescriptions: New prednisone 10 mg tablet 10 mg PO DAILY Qty: 7 0RF Rx Instructions: take 2 pills daily for 2 days starting on Wednesday10/16/22 then one pill daily for 3 days cephalexin 500 mg capsule 500 mg PO BID 5 Days Qty: 10 0RF famotidine [Acid Controller] 20 mg tablet 20 mg PO BID 6 Days Qty: 12 0RF Continued lisinopril 10 mg tablet 10 mg PO DAILY 90 Days Qty: 90 3RF (DME) OneTouch Verio test strips Strip See Rx Instructions .Route Rx Instructions: Test blood sugar 6-8 times daily insulin aspart U-100 [Novolog Flexpen U-100 Insulin] 100 unit/mL (3 mL) insulin pen 2 - 3 unit subcut TID Rx Instructions: Inject per sliding scale; TDD 10 units (DME) lancets [OneTouch Delica Lancets] 33 gauge misc See Rx Instructions .Route Rx Instructions: Test blood sugar 6-8 times daily (DME) pen needle, diabetic [Pen Needle] 32 gauge x 5/32" needle See Rx Instructions .Route Rx Instructions: Inject insulin three times daily cholecalciferol (vitamin D3) 50 mcg (2,000 unit) capsule 50 mcg PO DAILY omega-3 fatty acids 1,000 mg capsule 3,000 mg PO DAILY Rx Instructions: Pt takes three 1,000 caps daily metformin 1,000 mg tablet 1,000 mg PO BID Qty: 180 3RF Rx Instructions: Take 1,000 mg twice daily by mouth with meals. semaglutide [Ozempic] 0.25 mg or 0.5 mg(2 mg/1.5 mL) pen injector 0.25 mg subcut WK 0RF Rx Instructions: STARTED 10/13/22, PER PT "WILL SLOWLY WORK TO TAKE ON SATURDAYS". benzonatate 100 mg capsule 100 mg PO TID PRN (Reason: cough) 10 Days Qty: 30 1RF insulin glargine [Lantus Solostar U-100 Insulin] 100 unit/mL (3 mL) insulin pen 13 unit subcut QAM sertraline 50 mg tablet 50 mg PO QAM drospirenone-ethinyl estradiol [Vestura (28)] 3-0.02 mg tablet 1 tab PO QAM loratadine [Claritin] 10 mg Tablet 10 mg PO DAILY Discharge Orders: Discharge Order (Routine); Ordered 10/15/22 Ordered By: Mirian Peacock/Other Patient Handouts: ED Contact Dermatitis, Understanding Contact Dermatitis Admission Data Admit Date/Time: 10/15/22 02:24 Attending Provider: Charli Medina Admit Provider: Mat Izquierdo Primary Care Provider: Mat Llanes Other Providers: Mat Izquierdo Coding Level of Care Code OBSERV/HOSP SAME DATE LVL 1 Diagnoses Rash R21 T2DM (type 2 diabetes mellitus) E11.9 Hypertension I10 Depression F32.9 Time Spent (min) 25
== END 2022-10-15 16:14 | disposition home or self-care (01) ==
LOC: 3W 22:03 → ED 22:03 → SUATTDRO 10-15 02:24 → 3W 10-15 03:39